=== PATIENT | male | born 1960 | race Caucasian/White ===

== ENCOUNTER 2016-11-19 01:16 | Emergency (ER) | payer MEDICARE ==
[2016-11-19] MEDS ORDERED: Ondansetron HCl/PF 4 MG/2 ML Vial ONE (02:18)
[2016-11-19 02:27] LABS: #Basophils 0.1 thou/uL (0.0-0.2); #Eosinphils 0.1 thou/uL (0.0-0.7); #Lymphocytes 2.8 thou/uL (1.20-3.40); #Monocytes 0.9 thou/uL (0.11-0.59); #Neutrophils 9.5 thou/uL (1.40-6.50); %Basophils 0.5 % (0.0-1.0); %Eosinophils 0.7 % (0.0-10.0); %Lymphocytes 20.7 % (21.0-51.0); %Monocytes 7.1 % (0.0-10.0); Hematocrit 47.2 % (42.0-52.0); Mean Platelet Volume 7.8 fL (7.4-10.4); Red Blood Cell (RBC) Count 5.37 mill/uL (4.70-6.10); White Blood Cell (WBC) Count 13.3 thou/uL (4.8-10.8)
[2016-11-19 02:32] LABS: Bilirubin Negative (Negative); Blood, Urine Negative (Negative); Glucose, Urine (Dipstick) Negative (Negative); Ketone, Urine Negative (Negative); Nitrite Negative (Negative); Protein, Urine (Dipstick) Negative (Neg-Trace); Urobilinogen 0.2 mg/dL (0.2-1.0)
[2016-11-19 02:46] LABS: Anion Gap 12 mmol/L (10-20); BUN (Urea Nitrogen) 6 mg/dL (8.4-25.7); Calc. Creatinine Clearance 0 mL/min (70-130); Calcium 8.7 mg/dL (7.8-10.44); Carbon Dioxide 25 mmol/L (22-29); Chloride 95 mmol/L (98-107); Estimated GFR-MDRD Greater than 90
[2016-11-19] MEDS ORDERED: Potassium Chloride 20 MEQ TAB ONE (03:03)
== END 2016-11-19 03:20 | disposition home or self-care (01) ==
LOC: ERS 01:16
DX: E87.6 Hypokalemia (principal); F17.210 Nicotine dependence, cigarettes, uncomplicated; G47.30 Sleep apnea, unspecified; I10 Essential (primary) hypertension; E78.5 Hyperlipidemia, unspecified; E66.9 Obesity, unspecified; E11.42 Type 2 diabetes mellitus with diabetic polyneuropathy; Z79.82 Long term (current) use of aspirin; Z79.4 Long term (current) use of insulin; Z79.899 Other long term (current) drug therapy; Z86.19 Personal history of other infectious and parasitic diseases
CPT/HCPCS: 36415; 36416; 80048; 81003; 85025; 96361; 96374; J2405

== ENCOUNTER 2016-12-21 16:42 | Emergency (ER) | payer MEDICARE ==
[2016-12-21 17:46] LABS: Bilirubin Negative (Negative); Blood, Urine Negative (Negative); Glucose, Urine (Dipstick) Negative (Negative); Ketone, Urine Negative (Negative); Nitrite Negative (Negative); Protein, Urine (Dipstick) Negative (Neg-Trace); Urobilinogen 0.2 mg/dL (0.2-1.0)
[2016-12-21 17:49] LABS: #Basophils 0.1 thou/uL (0.0-0.2); #Eosinphils 0.1 thou/uL (0.0-0.7); #Lymphocytes 3.1 thou/uL (1.20-3.40); #Monocytes 0.8 thou/uL (0.11-0.59); #Neutrophils 9.1 thou/uL (1.40-6.50); %Basophils 0.6 % (0.0-1.0); %Eosinophils 1.1 % (0.0-10.0); %Lymphocytes 23.2 % (21.0-51.0); Hematocrit 49.9 % (42.0-52.0); Mean Platelet Volume 7.1 fL (7.4-10.4); Red Blood Cell (RBC) Count 5.76 mill/uL (4.70-6.10); White Blood Cell (WBC) Count 13.2 thou/uL (4.8-10.8)
[2016-12-21 18:04] LABS: ALT (SGPT) 16 U/L (8-55); AST (SGOT) 14 U/L (5-34); Alkaline Phosphatase 109 U/L (40-150); Anion Gap 16 mmol/L (10-20); BUN (Urea Nitrogen) 9 mg/dL (8.4-25.7); Bilirubin, Total 0.6 mg/dL (0.2-1.2); Calc. Creatinine Clearance 0 mL/min (70-130); Calcium 9.2 mg/dL (7.8-10.44); Carbon Dioxide 23 mmol/L (22-29); Chloride 92 mmol/L (98-107); Estimated GFR-MDRD Greater than 90; Globulin 2.9 g/dL (2.4-3.5); Protein, Total 6.9 g/dL (6.0-8.3)
--- NOTE | 2017-01-25 15:24 | EKG ---
Test Reason : Blood Pressure : / mmHG Vent. Rate : 073 BPM Atrial Rate : 073 BPM P-R Int : 150 ms QRS Dur : 092 ms QT Int : 398 ms P-R-T Axes : 051 015 042 degrees QTc Int : 438 ms Normal sinus rhythm Normal ECG Confirmed by VICTOR M BOONE D.O. ([id number]), editorial manager ISIDORO ROSE ([id number]) on 01/25/2017 3:24:13 PM Referred By: Confirmed By:VICTOR M BOONE D.O.
== END 2016-12-21 18:41 | disposition home or self-care (01) ==
LOC: ERS 16:42
DX: E87.79 Other fluid overload (principal); E87.1 Hypo-osmolality and hyponatremia; J44.9 Chronic obstructive pulmonary disease, unspecified; G47.30 Sleep apnea, unspecified; E11.40 Type 2 diabetes mellitus with diabetic neuropathy, unspecified; E03.9 Hypothyroidism, unspecified; E78.5 Hyperlipidemia, unspecified; E66.9 Obesity, unspecified; F17.210 Nicotine dependence, cigarettes, uncomplicated; Z79.4 Long term (current) use of insulin; Z79.82 Long term (current) use of aspirin; Z79.899 Other long term (current) drug therapy
CPT/HCPCS: 36415; 36416; 80053; 81003; 83930; 85025; 93005

== ENCOUNTER 2017-03-07 00:23 | Emergency (ER) | payer MEDICARE ==
[2017-03-07 02:45] LABS: #Basophils 0.1 thou/uL (0.0-0.2); #Eosinphils 0.1 thou/uL (0.0-0.7); #Monocytes 0.7 thou/uL (0.11-0.59); %Basophils 0.6 % (0.0-1.0); %Lymphocytes 25.2 % (21.0-51.0); %Monocytes 6.2 % (0.0-10.0); %Neutrophils 67.1 % (42.0-75.0); Mean Corpuscular HGB CONC 34.2 g/dL (32.0-36.0); Mean Corpuscular Hemoglobin 29.9 pg (27.0-31.0); Mean Corpuscular Volume 87.5 fl (80.0-94.0); Mean Platelet Volume 8.5 fL (7.4-10.4); Platelet Count 151 thou/uL (130-400); RBC Distribution Width 12.1 % (11.5-14.5); White Blood Cell (WBC) Count 11.9 thou/uL (4.8-10.8)
[2017-03-07 03:08] LABS: ALT (SGPT) 18 U/L (8-55); AST (SGOT) 13 U/L (5-34); Albumin 4.2 g/dL (3.5-5.0); Alkaline Phosphatase 116 U/L (40-150); Anion Gap 12 mmol/L (10-20); BUN (Urea Nitrogen) 11 mg/dL (8.4-25.7); Calc. Creatinine Clearance 0 mL/min (70-130); Calcium 9.3 mg/dL (7.8-10.44); Carbon Dioxide 27 mmol/L (22-29); Chloride 98 mmol/L (98-107); Estimated GFR-MDRD Greater than 90; Globulin 2.6 g/dL (2.4-3.5); Glucose 451 mg/dL (70-105); Phosphorus 4.1 mg/dL (2.3-4.7); Potassium 4.4 mmol/L (3.5-5.1); Protein, Total 6.8 g/dL (6.0-8.3); Sodium 133 mmol/L (136-145)
[2017-03-07] MEDS ORDERED: Insulin Regular 300 UNITS/3 ML VIAL ONE (03:44)
== END 2017-03-07 04:12 | disposition home or self-care (01) ==
LOC: ERS 00:23
DX: E11.65 Type 2 diabetes mellitus with hyperglycemia (principal); J44.9 Chronic obstructive pulmonary disease, unspecified; G47.30 Sleep apnea, unspecified; E03.9 Hypothyroidism, unspecified; E78.5 Hyperlipidemia, unspecified; I10 Essential (primary) hypertension; E66.9 Obesity, unspecified; F25.9 Schizoaffective disorder, unspecified; F17.210 Nicotine dependence, cigarettes, uncomplicated; Z79.899 Other long term (current) drug therapy; Z79.82 Long term (current) use of aspirin; Z79.4 Long term (current) use of insulin
CPT/HCPCS: 36415; 36416; 80053; 82010; 83735; 84100; 85025; 96374; J1815

== ENCOUNTER 2017-03-10 21:26 | Observation (INO) | payer MEDICARE ==
[2017-03-10 22:29] LABS: #Eosinphils 0.1 thou/uL (0.0-0.7); #Monocytes 0.8 thou/uL (0.11-0.59); #Neutrophils 8.3 thou/uL (1.40-6.50); %Basophils 0.3 % (0.0-1.0); %Eosinophils 0.6 % (0.0-10.0); %Lymphocytes 24.9 % (21.0-51.0); %Monocytes 6.3 % (0.0-10.0); %Neutrophils 67.9 % (42.0-75.0); Hemoglobin 15.8 g/dL (14.0-18.0); Mean Corpuscular HGB CONC 35.2 g/dL (32.0-36.0); Mean Corpuscular Hemoglobin 30.3 pg (27.0-31.0); Mean Corpuscular Volume 86.1 fl (80.0-94.0); Mean Platelet Volume 7.9 fL (7.4-10.4); Platelet Count 147 thou/uL (130-400); RBC Distribution Width 11.7 % (11.5-14.5); Red Blood Cell (RBC) Count 5.21 mill/uL (4.70-6.10); White Blood Cell (WBC) Count 12.2 thou/uL (4.8-10.8)
[2017-03-10 22:52] LABS: ALT (SGPT) 13 U/L (8-55); AST (SGOT) 13 U/L (5-34); Albumin 3.7 g/dL (3.5-5.0); Alkaline Phosphatase 81 U/L (40-150); Anion Gap 13 mmol/L (10-20); BUN (Urea Nitrogen) 8 mg/dL (8.4-25.7); Bilirubin, Total 1.1 mg/dL (0.2-1.2); CK (CPK) 136 U/L (30-200); Calc. Creatinine Clearance 0 mL/min (70-130); Calcium 8.6 mg/dL (7.8-10.44); Carbon Dioxide 24 mmol/L (22-29); Chloride 86 mmol/L (98-107); Estimated GFR-MDRD Greater than 90; Globulin 2.1 g/dL (2.4-3.5); Glucose 208 mg/dL (70-105); Potassium 3.6 mmol/L (3.5-5.1); Protein, Total 5.8 g/dL (6.0-8.3)
[2017-03-10 22:53] LABS: CKMB 2.9 ng/mL (0-6.6); Troponin I Less than 0.010 ng/mL (< 0.028)
[2017-03-10 22:55] LABS: Sodium 119 mmol/L (136-145)
--- NOTE | 2017-03-10 23:39 | RAD ---
PORTABLE CHEST: Date: 03-10-17 Provided Clinical History: Cough. FINDINGS: Comparison is made with 07-14-16. Cardiac and mediastinal silhouette is unchanged in appearance. Bibasilar linear opacities are again s een suggesting subsegmental atelectasis or scar. No lobar consolidation, pleural fluid, or pneumothor ax apparent. IMPRESSION: No evidence for an acute cardiopulmonary prcess. POS: [facility]
[2017-03-11 02:13] VITALS: BMI 43.8
[2017-03-11] MEDS ORDERED: Ondansetron ODT 4 MG TAB PO PRN (03:45)
[2017-03-11] MEDS ORDERED: Dextrose 50% Abboject 50 ML SYRINGE SLOW IVP PRN (03:45)
[2017-03-11] MEDS ORDERED: Enoxaparin Sodium 40 MG/0.4 ML SYRINGE SC SCH (03:45)
[2017-03-11] MEDS ORDERED: Dextrose 5% in Water 1,000 ML IV PRN (03:45)
[2017-03-11] MEDS ORDERED: PROVENTIL INHALER 6.7 G (200 INHALATIONS) INH PRN (03:45)
[2017-03-11] MEDS: traMADol HCl 50 MG TAB PO PRN ×2 (05:12→15:38)
[2017-03-11] MEDS: HumaLOG 300 UNITS/3 ML VIAL SC PRN ×2 (05:30→17:18)
[2017-03-11] MEDS ORDERED: Levothyroxine Sodium 88 MCG TAB PO SCH (06:00)
[2017-03-11 06:15] LABS: #Eosinphils 0.1 thou/uL (0.0-0.7); #Lymphocytes 1.8 thou/uL (1.20-3.40); #Monocytes 0.7 thou/uL (0.11-0.59); #Neutrophils 8.5 thou/uL (1.40-6.50); %Basophils 0.2 % (0.0-1.0); %Eosinophils 0.9 % (0.0-10.0); %Lymphocytes 16.1 % (21.0-51.0); %Monocytes 6.6 % (0.0-10.0); %Neutrophils 76.2 % (42.0-75.0); Hemoglobin 17.2 g/dL (14.0-18.0); Mean Corpuscular HGB CONC 33.5 g/dL (32.0-36.0); Mean Corpuscular Hemoglobin 29.1 pg (27.0-31.0); Mean Corpuscular Volume 86.8 fl (80.0-94.0); Mean Platelet Volume 8.1 fL (7.4-10.4); Platelet Count 162 thou/uL (130-400); White Blood Cell (WBC) Count 11.2 thou/uL (4.8-10.8)
--- NOTE | 2017-03-11 06:20 | HP ---
DATE OF ADMISSION: 03/10/2017 TIME OF SERVICE: 0245. PRIMARY CARE PHYSICIAN: Dr. Wyatt at the [facility] in [facility]. CHIEF COMPLAINT: Flu symptoms. HISTORY OF PRESENT ILLNESS: Mr. Curry is a pleasant 56-year-old gentleman with history of hyperten avelina, COPD, chronic hepatitis C, GERD, sleep apnea, peripheral neuropathy, diabetes mellitus 2, hyper lipidemia, obesity, anxiety/depression, and schizoaffective disorder with known psychogenic polydipsi a and previous episodes of hyponatremia. The patient was seen in the ER a couple of days ago where his sodium was 133. He was there for respi ratory symptoms and discharged home. The patient returns today for flu-like symptoms again. He complains of a cough, congestion, and just overall body aches. Labs were largely normal except for a sodium of 119. So he has dropped from 13 3 to 119 in 48 hours. The patient admits to drinking at least 12 to 15 twelve ounce bottles of water a day plus 12-5 twenty ounce sodas and coffee and ice tea and whatever else he can get a hold of. He subsequently I believ e has literally drank himself down to a sodium of 119. The patient has had low sodiums in the past, lowest in the most recent history is down to 123 back in November. No fevers or chills, no chest pain, no shortness of breath. No nausea or vomiting. PAST MEDICAL HISTORY: 1. Hypertension. 2. Chronic obstructive pulmonary disease. 3. Chronic hepatitis C. 4. Gastroesophageal reflux disease. 5. Obstructive sleep apnea. 6. Peripheral neuropathy. 7. Diabetes mellitus type 2. 8. Hyperlipidemia. 9. Obesity. 10. Hypothyroidism. 11. Anxiety. 12. Depression with schizoaffective disorder. PAST SURGICAL HISTORY: 1. Back surgery remotely many years ago. 2. Double surgery. 3. Bilateral carpal tunnel release. 4. Hernia repair. MEDICATIONS: 1. Aspirin 81 mg daily. 2. Tylenol 500 mg p.o. at bedtime. 3. Cogentin 0.5 mg daily. 4. BuSpar 10 mg p.o. t.i.d. 5. Levothyroxine 88 mcg daily. 6. Metformin 1000 mg p.o. b.i.d. 7. Zoloft 50 mg p.o. b.i.d. 8. Lisinopril 20 mg p.o. daily. 9. Levemir 10 units subcu daily. 10. Robaxin 500 mg p.o. b.i.d. 11. Zocor 20 mg p.o. at bedtime. 12. Tramadol 50 mg p.o. q.4 hours p.r.n. 13. Flexeril 10 mg p.o. q.8h. p.r.n. 14. Albuterol MDI 2 puffs q.6 hours p.r.n. 15. Humalog sliding scale. ALLERGIES: NKDA. FAMILY HISTORY: Negative for clotting or bleeding disorder. No autoimmune dysfunction. SOCIAL HISTORY: Negative for habits x3. REVIEW OF SYSTEMS: A 10-point review of systems was performed, negative for other systems except as stated per HPI. PHYSICAL EXAMINATION: VITAL SIGNS: Temperature 98.6, pulse 67, blood pressure 114/60, respiratory 20, sat 94% on room air. GENERAL: He is awake. He is alert. He is oriented x3. He is an obese white male, appears in no ac betsy distress. HEENT: Normocephalic, atraumatic. Pupils equal and reactive bilaterally, mucous are moist. There a re no visible lesions or thrush. NECK: Supple with no lymphadenopathy, JVD or thyromegaly. Normal carotid upstrokes. I do not appre ciate bruits. LUNGS: Clear. No wheezes, no rales, no rhonchi. Good air movement. Symmetrical chest excursion. CARDIOVASCULAR: He is regular with a normal rate. Normal S1, S2. He has a faint 2/6 systolic eject ion murmur at the right upper sternal border. ABDOMEN: Obese, is nontender, nondistended. No mass or organomegaly. No shifting dullness, no flui d wave. EXTREMITIES: No cyanosis, no clubbing. He has got 1+ edema in the bilateral lower extremities from the mid tibia level down. SKIN: Warm, moist and well perfused. He had no rashes, no lesions. MUSCULOSKELETAL: Normal to inspection without any inflammation or palpable effusions. NEUROLOGIC: Cranial nerves II-XII are grossly intact. He has normal speech, 5/5 strength in all 4 e xtremities and no focal deficits. LABORATORY DATA: Sodium 119, potassium 3.6, chloride 86, bicarbonate 24, BUN 8, creatinine 0.66 and glucose of 208, calcium 8.6. Liver functions are normal except for a total protein of 5.8, albumin o f 2.1. CBC showed a white count of 12.2, hemoglobin 15.8, hematocrit 44.9 and platelet count of 517, 000. BNP is 95.5. CK-MB normal at 2.9, troponin I is undetectable less than 0.010. Chest x-ray teena wed no acute cardiopulmonary disease. ASSESSMENT AND PLAN: 1. Hyponatremia with decreased serum osmolality secondary to psychogenic polydipsia. We will fluid restrict him. He is already put out 3-4 liters of urine since being here and is already negative 2-3 liters overall. 2. Psychogenic polydipsia as above. 3. Hypertension. Continue home medications. 4. Chronic obstructive pulmonary disease. We will continue his home a home MDIs. 5. History of chronic hepatitis C. He denies any prior treatment. 6. Gastroesophageal reflux disease. The patient will be on Pepcid b.i.d. for prophylaxis. 7. Obstructive sleep apnea. 8. Peripheral neuropathy. 9. Diabetes mellitus type 2. Continue sliding scale insulin for elevated sugars. We will check q.i .d. a.c. and at bedtime Accu-Cheks. 10. Hyperlipidemia on Zocor. We will continue treatment here. 11. Obesity. 12. Hypothyroidism on levothyroxine, which will continue. 13. Schizoaffective disorder/anxiety/depression on Cogentin, BuSpar, Zoloft, and Robaxin and Haldol .
[2017-03-11 06:47] LABS: Anion Gap 15 mmol/L (10-20); BUN (Urea Nitrogen) 7 mg/dL (8.4-25.7); Calc. Creatinine Clearance 180 mL/min (70-130); Calcium 9.2 mg/dL (7.8-10.44); Carbon Dioxide 23 mmol/L (22-29); Chloride 96 mmol/L (98-107); Estimated GFR-MDRD Greater than 90; Glucose 268 mg/dL (70-105); Magnesium 2.1 mg/dL (1.6-2.6); Potassium 4.4 mmol/L (3.5-5.1); Sodium 130 mmol/L (136-145)
[2017-03-11] MEDS ORDERED: metFORMIN XR 500 MG TAB PO SCH (08:00)
[2017-03-11] MEDS: busPIRone HCl 10 MG TAB PO SCH ×2 (08:49→15:38)
[2017-03-11] MEDS: Methocarbamol 500 MG TAB PO SCH ×2 (08:49→15:38)
[2017-03-11] MEDS ORDERED: Famotidine 20 MG TAB PO SCH (09:00)
[2017-03-11] MEDS ORDERED: Lisinopril 20 MG TAB PO SCH (09:00)
[2017-03-11] MEDS ORDERED: Insulin Detemir 100 UNITS/ML 40 UNITS in Pre-Filled Syringe 1 EACH SC SCH (09:00)
[2017-03-11 15:40] VITALS: BP 115/66; TEMP 97.9
[2017-03-11] MEDS ORDERED: Haloperidol 5 MG TAB PO SCH (21:00)
[2017-03-11] MEDS ORDERED: Atorvastatin Calcium 10 MG TAB PO SCH (21:00)
[2017-03-11] MEDS ORDERED: Benztropine 1 MG TAB PO SCH (21:00)
--- NOTE | 2017-03-11 23:53 | DIS ---
DATE OF ADMISSION: 03/10/2017 DATE OF DISCHARGE: 03/11/2017 DISCHARGE DIAGNOSES: 1. Psychogenic polydipsia, improved. 2. Hypochloremia. 3. Diabetes mellitus type 2, insulin requiring. 4. Schizoaffective disorder. 5. Hypothyroidism. 6. Chronic obstructive pulmonary disease, stable. 7. Chronic hepatitis C, stable. 8. Obstructive sleep apnea with nocturnal CPAP. CONSULTATIONS: None. PERTINENT LABORATORY AND X-RAY FINDINGS: Sodium ranged between 119 to 130, chloride ranged between 8 6 to 96, creatinine ranged between 0.66 to 0.74, calcium 9.2, magnesium 2.1. LFTs are within normal limits. Troponin I negative x1. Albumin 3.7. CBC showed a white blood cell count ranging between 1 1.2 to 12.2. Group A Streptococcus throat screen was negative on 03/11/2017. Influenza A and B antig en dated 03/10/2017 was negative. Portable chest x-ray dated 03/10/2017 showed no acute cardiopulmon lester process. HOSPITAL COURSE: The patient was placed in observation status after initially presenting with flu-li ke symptoms with an associated metabolic survey showing a sodium level of 119. The patient with long standing history of hyponatremia likely psychogenic polydipsia. The patient was placed on fluid rest rictions and auto-diuresed approximately 4 to 5 liters without specific intervention. The patient's sodium level improved from 119 to 130 by the time of discharge. The patient symptomatically improved with fluid restriction and was cautioned and given education regarding excessive fluid intake and it s risk to overall health. Overall, the patient remained clinically stable during the hospital course with telemetry monitoring showing a sinus mechanism without acute arrhythmia or dysrhythmia. Overal l, the patient is clinically stable and ready for discharge on 03/11/2017. DISCHARGE MEDICATIONS: 1. ProAir RespiClick 90 mcg inhaled q.4 hours p.r.n. 2. Enteric coated aspirin 81 mg 1 tablet p.o. daily. 3. Cogentin 0.5 mg p.o. at bedtime. 4. BuSpar 10 mg p.o. t.i.d. 5. Haldol 5 mg p.o. at bedtime. 6. Levemir 40 units subcutaneously b.i.d. 7. Lactulose 2 tablespoons p.o. b.i.d. 8. Levothyroxine 88 mcg p.o. daily. 9. Lisinopril 20 mg 1 tablet p.o. daily. 10. Metformin ER 2000 mg p.o. daily. 11. Methocarbamol 500 mg p.o. t.i.d. 12. Zoloft 100 mg p.o. b.i.d. 13. Zocor 20 mg p.o. at bedtime. 14. Tramadol 50 mg p.o. q.i.d. p.r.n. FOLLOWUP: The patient will follow up with primary care provider, Dr. Yazan Damon, at the [facility] in [place], [place]. CONDITION ON DISCHARGE: Stable. ACTIVITY: Ad vivienne. DIET: Heart healthy and ADA. CODE STATUS: FULL. DISPOSITION: Home on 03/11/2017.
--- NOTE | 2017-03-12 00:07 | CON ---
DATE OF CONSULTATION: 03/11/2017 CONSULTING PHYSICIAN: Dr. Gandhi. REASON FOR CONSULTATION: Hyponatremia. REASON FOR ADMISSION: Weakness. HISTORY OF PRESENT ILLNESS: A 56-year-old male with history of hypertension, COPD, hepatitis C, came to the hospital with flu-like symptoms, found to have hyponatremia at 119. He usually has a sodium around 130, 133 now, no fever or chills. The patient admits to drinking a lot of water. We will sta rt him on fluid restriction this morning, sodium was 130. No fever or chills. No nausea or vomiting. PAST MEDICAL HISTORY: Positive for hypertension, COPD, hepatitis C, gout, neuropathy, type 2 diabete s, hyperlipidemia, obesity, hypothyroidism, anxiety, and depression. PAST SURGICAL HISTORY: Back surgery and bilateral carpal tunnel surgery, hernia repair. HOME MEDICATIONS: Aspirin, Tylenol, BuSpar, levothyroxine, metoprolol, Zoloft, lisinopril, Robaxin, Zocor, tramadol, Flexeril, and albuterol inhaler. ALLERGIES: NKDA. FAMILY HISTORY: No history of any kidney disease. SOCIAL HISTORY: No smoking, alcohol or illicit drug abuse. REVIEW OF SYSTEMS: The following complete review of systems was negative, unless otherwise mentioned in the HPI or below: Constitutional: Weight loss or gain, ability to conduct usual activities. Skin: Rash, itching. Eyes: Double vision, pain. ENT/Mouth: Nose bleeding, neck stiffness, pain, tenderness. Cardiovascular: Palpitations, dyspnea on exertion, orthopnea. Respiratory: Shortness of breath, wheezing, cough, hemoptysis, fever or night sweats. Gastrointestinal: Poor appetite, abdominal pain, heartburn, nausea, vomiting, constipation, or diarr hea. Genitourinary: Urgency, frequency, dysuria, nocturia. Musculoskeletal: Pain, swelling. Neurologic/Psychiatric: Anxiety, depression. Allergy/Immunologic: Skin rash, bleeding tendency. PHYSICAL EXAMINATION: GENERAL: This is a well-built white male in no apparent distress. VITAL SIGNS: Temperature 98.3, pulse 72, respiratory rate 20, and blood pressure 106/66. HEENT: Atraumatic, normocephalic. Oral mucosa is moist. NECK: Supple, no masses. CARDIOVASCULAR: S1, S2, rate and rhythm regular. RESPIRATORY: Clear. ABDOMEN: Soft. MUSCULOSKELETAL: 1+ edema. DERMATOLOGIC: No skin rash. NEUROLOGIC: Alert, awake. PSYCHIATRIC: Mood and affect normal. LABORATORY DATA: Sodium is 130, potassium is 4.4, BUN is 7, and creatinine is 0.7. ASSESSMENT AND PLAN: 1. Hyponatremia, most likely from polydipsia. Sodium is better now , doubt the 119 level, but we will follow. Continue on fluid restriction. 2. Hypochloremia. 3. Edema, controlled. 4. Hypertension. 5. Obesity. 6. Hypoalbuminemia. 7. Continue on fluid restriction and monitor sodium.
== END 2017-03-11 18:34 | disposition home or self-care (01) ==
LOC: ERS 21:26 → 2SW 23:15
PROVIDERS: ADMIT Internal Medicine Infectious Disease; ATTEND Internal Medicine Infectious Disease
DX: R63.1 Polydipsia (principal); E87.8 Other disorders of electrolyte and fluid balance, not elsewhere classified; F25.9 Schizoaffective disorder, unspecified; E03.9 Hypothyroidism, unspecified; E11.40 Type 2 diabetes mellitus with diabetic neuropathy, unspecified; J44.9 Chronic obstructive pulmonary disease, unspecified; M10.9 Gout, unspecified; B18.2 Chronic viral hepatitis C; G47.33 Obstructive sleep apnea (adult) (pediatric); Z79.82 Long term (current) use of aspirin; Z79.899 Other long term (current) drug therapy; Z98.890 Other specified postprocedural states; Z99.89 Dependence on other enabling machines and devices
CPT/HCPCS: 71045; 80048; 80053; 82550; 82553; 82962; 83735; 83880; 84484; 85025 ×2; 87804 ×2; 93005; 96372; 97139; 99285; G0378; 36415; 36416; J1650; J1815

== ENCOUNTER 2017-04-28 21:13 | Emergency (ER) | payer MEDICARE ==
[2017-04-28 22:02] LABS: #Basophils 0.1 thou/uL (0.0-0.2); #Eosinphils 0.1 thou/uL (0.0-0.7); #Lymphocytes 2.6 thou/uL (1.20-3.40); #Monocytes 0.9 thou/uL (0.11-0.59); #Neutrophils 8.8 thou/uL (1.40-6.50); %Basophils 0.6 % (0.0-1.0); %Eosinophils 0.9 % (0.0-10.0); %Lymphocytes 20.8 % (21.0-51.0); %Monocytes 7.1 % (0.0-10.0); %Neutrophils 70.7 % (42.0-75.0); Mean Corpuscular HGB CONC 35.3 g/dL (32.0-36.0); Mean Corpuscular Hemoglobin 30.7 pg (27.0-31.0); Mean Corpuscular Volume 86.8 fl (80.0-94.0); Mean Platelet Volume 7.7 fL (7.4-10.4); Platelet Count 169 thou/uL (130-400); RBC Distribution Width 12.3 % (11.5-14.5); Red Blood Cell (RBC) Count 5.86 mill/uL (4.70-6.10); White Blood Cell (WBC) Count 12.5 thou/uL (4.8-10.8)
[2017-04-28 22:20] LABS: ALT (SGPT) 16 U/L (8-55); AST (SGOT) 14 U/L (5-34); Albumin 4.4 g/dL (3.5-5.0); Alkaline Phosphatase 95 U/L (40-150); Anion Gap 15 mmol/L (10-20); BUN (Urea Nitrogen) 10 mg/dL (8.4-25.7); Bilirubin, Total 1.1 mg/dL (0.2-1.2); Calc. Creatinine Clearance 0 mL/min (70-130); Calcium 9.5 mg/dL (7.8-10.44); Carbon Dioxide 26 mmol/L (22-29); Chloride 95 mmol/L (98-107); Estimated GFR-MDRD 87; Glucose 357 mg/dL (70-105); Protein, Total 7.4 g/dL (6.0-8.3); Sodium 132 mmol/L (136-145)
[2017-04-28] MEDS ORDERED: methylPREDNISolone Sod Succ/PF 125 MG/2 ML VIAL ONE (22:27)
[2017-04-28] MEDS ORDERED: Water For Inject, Bacteriostat 30 ML ONE (22:27)
--- NOTE | 2017-04-28 22:52 | RAD ---
PORTABLE CHEST: History: Cough. FINDINGS: The lungs appear clear of infiltrate. Heart and mediastinum unremarkable. IMPRESSION: No acute abnormality. POS: [facility]
--- NOTE | 2017-05-03 11:45 | EKG ---
Test Reason : CHEST TIGHNESS Blood Pressure : / mmHG Vent. Rate : 077 BPM Atrial Rate : 077 BPM P-R Int : 144 ms QRS Dur : 098 ms QT Int : 396 ms P-R-T Axes : 056 -09 048 degrees QTc Int : 448 ms Normal sinus rhythm Normal ECG Confirmed by OVIDIO MARROQUIN, GABBY Haile ([id number]), multimedia editor ISIDORO ROSE ([id number]) on 05/03/2017 11:44:25 AM Referred By: LILLI Confirmed By:GABBY NOLAN MD
== END 2017-04-29 00:04 | disposition home or self-care (01) ==
LOC: ERS 21:13
DX: J44.1 Chronic obstructive pulmonary disease with (acute) exacerbation (principal); E11.40 Type 2 diabetes mellitus with diabetic neuropathy, unspecified; E03.9 Hypothyroidism, unspecified; G47.30 Sleep apnea, unspecified; I10 Essential (primary) hypertension; F25.9 Schizoaffective disorder, unspecified; F17.210 Nicotine dependence, cigarettes, uncomplicated; Z79.4 Long term (current) use of insulin; Z79.891 Long term (current) use of opiate analgesic; Z79.899 Other long term (current) drug therapy
CPT/HCPCS: 71045; 80053; 85025; 93005; 94640; 94760; 96374; J2930; J7620

== ENCOUNTER 2017-05-16 18:21 | Observation (INO) | payer MEDICARE ==
[2017-05-16 18:45] LABS: #Basophils 0.1 thou/uL (0.0-0.2); #Eosinphils 0.1 thou/uL (0.0-0.7); #Lymphocytes 2.6 thou/uL (1.20-3.40); #Monocytes 0.9 thou/uL (0.11-0.59); %Basophils 0.7 % (0.0-1.0); %Lymphocytes 26.9 % (21.0-51.0); %Monocytes 9.1 % (0.0-10.0); %Neutrophils 62.3 % (42.0-75.0); Hemoglobin 17.1 g/dL (14.0-18.0); Mean Corpuscular HGB CONC 35.3 g/dL (32.0-36.0); Mean Corpuscular Hemoglobin 30.4 pg (27.0-31.0); Mean Platelet Volume 7.5 fL (7.4-10.4); Platelet Count 195 thou/uL (130-400); RBC Distribution Width 11.8 % (11.5-14.5); Red Blood Cell (RBC) Count 5.63 mill/uL (4.70-6.10); White Blood Cell (WBC) Count 9.7 thou/uL (4.8-10.8)
[2017-05-16 18:57] LABS: INR-International Normal Ratio 1.2; PTT 27.5 SEC (22.9-36.1); Prothrombin Time 15.2 SEC (12.0-14.7)
[2017-05-16 18:59] LABS: D-Dimer Test Less than 0.27 *mcg/mL (0.27-0.43)
[2017-05-16 19:01] LABS: Magnesium 1.7 mg/dL (1.6-2.6)
[2017-05-16 19:06] LABS: ALT (SGPT) 16 U/L (8-55); AST (SGOT) 12 U/L (5-34); Albumin 4.1 g/dL (3.5-5.0); Alkaline Phosphatase 133 U/L (40-150); Anion Gap 14 mmol/L (10-20); BUN (Urea Nitrogen) 11 mg/dL (8.4-25.7); Bilirubin, Total 0.7 mg/dL (0.2-1.2); CK (CPK) 69 U/L (30-200); Calc. Creatinine Clearance 0 mL/min (70-130); Calcium 9.4 mg/dL (7.8-10.44); Carbon Dioxide 29 mmol/L (22-29); Chloride 94 mmol/L (98-107); Estimated GFR-MDRD 84; Globulin 2.9 g/dL (2.4-3.5); Glucose 404 mg/dL (70-105); Potassium 4.1 mmol/L (3.5-5.1); Sodium 133 mmol/L (136-145)
[2017-05-16 19:07] LABS: CKMB 1.5 ng/mL (0-6.6); Troponin I Less than 0.010 ng/mL (< 0.028)
--- NOTE | 2017-05-16 19:29 | RAD ---
AP VIEW OF THE CHEST: 05/16/17 INDICATION: Chest pain and productive cough. IMPRESSION: No acute cardiopulmonary abnormality. There is stable cardiomegaly when compared to the prior dated . POS: [facility]
[2017-05-16] MEDS ORDERED: Nitroglycerin 2% Ointment 1 INCH/1 GM Packet ONE (20:10)
[2017-05-16] MEDS ORDERED: HYDROcodone/Acetaminophen 5/325 mg Tablet PO PRN ×2 (21:55)
[2017-05-16] MEDS ORDERED: Ondansetron HCl/PF 4 MG/2 ML Vial IVP PRN (21:55)
[2017-05-16] MEDS ORDERED: Ondansetron ODT 4 MG TAB SL PRN (21:55)
[2017-05-16] MEDS ORDERED: Acetaminophen 325 MG TAB PO PRN (21:55)
[2017-05-16 22:04] LABS: Troponin I Less than 0.010 ng/mL (< 0.028)
[2017-05-16 22:22] VITALS: BMI 41.5
[2017-05-17 00:59] LABS: Troponin I Less than 0.010 ng/mL (< 0.028)
[2017-05-17] MEDS ORDERED: Chloraseptic Spray 180 ml Bottle PO PRN (01:34)
[2017-05-17] MEDS ORDERED: Ondansetron HCl/PF 4 MG/2 ML Vial IVP PRN (01:34)
[2017-05-17] MEDS ORDERED: hydrALAZINE 20 MG/ML VIAL SLOW IVP PRN (01:34)
[2017-05-17] MEDS ORDERED: Benzonatate 100 MG CAP PO PRN (01:34)
[2017-05-17] MEDS ORDERED: cloNIDine 0.1 MG TAB PO PRN (01:34)
[2017-05-17] MEDS ORDERED: Dextrose 50% Abboject 50 ML SYRINGE SLOW IVP PRN (01:34)
[2017-05-17] MEDS ORDERED: HumaLOG 300 UNITS/3 ML VIAL SC PRN (01:34)
[2017-05-17] MEDS ORDERED: predniSONE 20 MG TAB PO SCH ×2 (01:34→08:00)
[2017-05-17] MEDS ORDERED: Dextrose 5% in Water 1,000 ML IV PRN (01:34)
[2017-05-17] MEDS ORDERED: Ondansetron ODT 4 MG TAB PO PRN (01:34)
[2017-05-17] MEDS ORDERED: Acetaminophen 500 MG TAB PO PRN (01:34)
[2017-05-17] MEDS ORDERED: PROVENTIL INHALER 6.7 G (200 INHALATIONS) INH PRN (02:00)
[2017-05-17] MEDS ORDERED: guaiFENesin/DM ER PO SCH ×2 (02:00→21:00)
--- NOTE | 2017-05-17 02:54 | HP ---
DATE OF ADMISSION: 05/16/2017 PRIMARY CARE PHYSICIAN: Dr. Yazan Damon at [facility] in [place], [place]. CHIEF COMPLAINT: Cough. HISTORY OF PRESENT ILLNESS: This is a 56-year-old male who presents to [facility] complaining of persistent cough over the last week. After being diagnosed recently wi th bronchitis treated with Augmentin for approximately 1 week. Patient states he has had increased c ough with productivity receiving amoxicillin through his primary care provider. Patient states he zuniga s had persistent cough with associated chest discomfort due to the intensity of his coughing episodes . Patient states he last smoked 8-9 days prior to this evaluation, previously smoking up to 3 packs of cigarettes daily. Patient denied any specific fever, but states he has had some disrupted sleep d ue to the cough. Patient states when he takes a deep breath, it causes him to cough more. Patient d oes admit to using a home nebulizer as well as metered-dose inhaler. Patient states he uses nocturna l CPAP, but not chronic oxygen supplementation. Patient has tried [id number] remedies and coug h suppressants with minimal relief. In the emergency room, patient underwent general evaluation incl uding chest imaging showing no acute process. Patient also underwent EKG evaluation showing no acute process. Patient did receive topical nitroglycerin, as patient had complained of some chest discomf ort with cough. Patient underwent nuclear cardiac stress testing in 2014 with negative findings. PAST MEDICAL HISTORY: 1. Hypertension. 2. Chronic obstructive pulmonary disease. 3. Chronic hepatitis C. 4. Obstructive sleep apnea with nocturnal CPAP. 5. Gastroesophageal reflux disease. 6. Peripheral neuropathy. 7. Diabetes mellitus type 2, insulin requiring, labile. 8. Hyperlipidemia. 9. Psychogenic polydipsia with hyponatremia. 10. Morbid obesity. 11. Hypothyroidism. 12. Anxiety with depression. 13. Schizoaffective disorder. PAST SURGICAL HISTORY: 1. Status post back surgery. 2. Status post bilateral carpal tunnel release. 3. Status post hernia repair. CURRENT MEDICATIONS: 1. ProAir RespiClick 90 mcg p.o. q.4 hours p.r.n. 2. Aspirin 81 mg p.o. daily. 3. Cogentin 0.5 mg p.o. at bedtime. 4. BuSpar 10 mg p.o. t.i.d. 5. Gabapentin 300 mg p.o. b.i.d. 6. Haldol 5 mg p.o. at bedtime p.r.n. 7. Humalog 12 units subcutaneously with meals. 8. Levemir 40 units subcutaneously b.i.d. 9. Levothyroxine 88 mcg p.o. daily. 10. Lisinopril 20 mg 1 tab p.o. daily. 11. Metformin ER 2000 mg p.o. daily. 12. Methocarbamol 500 mg p.o. b.i.d. 13. Zoloft 100 mg p.o. b.i.d. 14. Zocor 20 mg p.o. at bedtime. 15. Tramadol 50 mg p.o. t.i.d. 16. Zantac 150 mg p.o. daily. ALLERGIES: No known drug allergies. FAMILY HISTORY: No inheritable diseases per patient report. SOCIAL HISTORY: Patient is , resides in [place], [place]. Disabled. [place] of the . P reviously smoking up to 2 to 3 packs per day. Last cigarette smoked 8-9 days prior to this evaluatio n. Currently, using smokeless tobacco. No alcohol or illicit drug use. REVIEW OF SYSTEMS: The following complete review of systems was otherwise negative, except as stated per HPI: Constitutional: Weight loss or gain, ability to conduct usual activities. Skin: Rash, i tching. Eyes: Double vision, pain. ENT/Mouth: Nose bleeding, neck stiffness, pain, tenderness. C ardiovascular: Palpitations, dyspnea on exertion, orthopnea. Respiratory: Shortness of breath, whe ezing, cough, hemoptysis, fever, or night sweats. Gastrointestinal: Poor appetite, abdominal pain, heartburn, nausea, vomiting, constipation, or diarrhea. Genitourinary: Urgency, frequency, dysuria, nocturia. Musculoskeletal: Pain, swelling. Neurologic/Psychiatric: Anxiety, depression. Allergy /Immunologic: Skin rash, bleeding tendency. PHYSICAL EXAMINATION: VITAL SIGNS: Currently, blood pressure 112/58, pulse 69, respiratory rate 18, temperature 97.6 degre es Fahrenheit, O2 saturation 97% on room air. GENERAL APPEARANCE: This is a 56-year-old male, alert and oriented x3, pleasant, conversan t, in no acute distress. HEENT: Pupils are equal, round, and reactive to light and accommodation. Extraocular muscles are in tact. No scleral icterus, no conjunctival injection. Nares patent. OP is clear. Face is flushed. NECK: Supple, no cervical adenopathy, no thyromegaly, no carotid bruits, no JVD appreciated. Cervic al spine with full active and passive range of motion. CHEST: Diminished breath sounds bilaterally. Occasional rhonchi. CARDIOVASCULAR: S1, S2 with distant heart sounds. ABDOMEN: Obese, soft, nontender, nondistended. Bowel sounds are positive in all four quadrants. Th ere is no hepatosplenomegaly, no abdominal bruits, no rebound or guarding appreciated. EXTREMITIES: Warm and dry with fair turgor. No clubbing, cyanosis, or asymmetric edema appreciated. Pulses palpable distally at the dorsalis pedis, posterior tibial, and popliteal arteries bilaterall y. Capillary refills less than 2 seconds. NEUROLOGIC: Cranial nerves II-XII are grossly intact. No focal or lateralizing signs appreciated. PERTINENT LABORATORY DATA AND X-RAY FINDINGS: Sodium 133, potassium 4.1, chloride 94, CO2 of 29, BUN of 11, creatinine 0.92, estimated GFR of 84, glucose 404, calcium 9.4, magnesium 1.7. LFTs within n ormal limits. Troponin I negative x2. BNP 10. Albumin 4.1, lipase 16. CBC showed a white blood ce ll count of 9.7, hemoglobin 17, hematocrit 48, platelet count 195 with normal differential. Portable chest x-ray dated 05/16/2017, showed no acute cardiopulmonary process. EKG dated 05/16/2017 by my i nterpretation shows sinus mechanism with heart rates in the 60s-70s. Normal R-wave progression noted in precordial leads. Normal axis. No acute ST-T wave changes appreciated. ASSESSMENT AND PLAN: 1. Dyspnea with cough. Patient will be observed on the telemetry unit. Appears patient has acute o n chronic bronchitis in the context of known tobacco abuse. We will continue general pulmonary suppo rtive measures with DuoNebs q.4 hours. We will continue oxygen to maintain O2 saturation greater than or equal to 90%. 2. Chronic obstructive pulmonary disease. No specific indication of an acute exacerbation. We will continue Levaquin 500 mg p.o. daily. Resume home ProAir RespiClick 90 mcg inhaled q.4 hours p.r.n. Continue DuoNebs q.4 hours. 3. Chest pain secondarily to #1. No evidence to suggest acute coronary syndrome. Chest wall pain b y clinical history and exam. Supportive measures. 4. Chronic hyponatremia. Stable currently. Continue to monitor trend in the hospital course. 5. Diabetes mellitus, type 2, insulin-requiring. Insulin sliding scale for reflexive coverage. Res ume home Levemir 40 units subcutaneously b.i.d. 6. Accu-Cheks a.c. and at bedtime. ADA diet. 7. Hypertension. Resume home antihypertensive regimen and monitor clinical response. 8. Tobacco abuse. We will offer smoking cessation resources prior to discharge. 9. Prophylaxis. Sequential compression devices while in bed. Pepcid 20 mg p.o. b.i.d. 10. Code status is FULL. Surrogate medical decision maker is patient's spouse.
[2017-05-17 05:03] LABS: Band 4 % (5-11); Hemoglobin 16.6 g/dL (14.0-18.0); Lymphocytes 17 % (21-51); MDiff Complete? YES; Mean Corpuscular HGB CONC 34.5 g/dL (32.0-36.0); Mean Corpuscular Hemoglobin 30.6 pg (27.0-31.0); Mean Corpuscular Volume 88.6 fl (80.0-94.0); Monocytes 9 % (0-10); Neutrophil 68 % (42-75); Platelet Count 181 thou/uL (130-400); RBC Distribution Width 11.8 % (11.5-14.5); Reactive Lymphocytes 2 % (0-10); Red Blood Cell (RBC) Count 5.42 mill/uL (4.70-6.10); White Blood Cell (WBC) Count 11.6 thou/uL (4.8-10.8)
[2017-05-17 05:14] LABS: Anion Gap 9 mmol/L (10-20); BUN (Urea Nitrogen) 10 mg/dL (8.4-25.7); Calc. Creatinine Clearance 163 mL/min (70-130); Carbon Dioxide 31 mmol/L (22-29); Chloride 96 mmol/L (98-107); Estimated GFR-MDRD Greater than 90; Glucose 375 mg/dL (70-105); Sodium 132 mmol/L (136-145)
[2017-05-17] MEDS: HumaLOG 300 UNITS/3 ML VIAL SC PRN ×3 (05:45→16:27)
[2017-05-17] MEDS ORDERED: Levothyroxine Sodium 88 MCG TAB PO SCH (06:00)
[2017-05-17] MEDS ORDERED: metFORMIN XR 500 MG TAB PO SCH (08:00)
[2017-05-17] MEDS ORDERED: Famotidine 20 MG TAB PO SCH (09:00)
[2017-05-17] MEDS ORDERED: Methocarbamol 500 MG TAB PO SCH (09:00)
[2017-05-17] MEDS ORDERED: Gabapentin 300 MG CAP PO SCH (09:00)
[2017-05-17] MEDS ORDERED: Aspirin 325 MG TAB PO SCH (09:00)
[2017-05-17] MEDS ORDERED: Insulin Detemir 100 UNITS/ML 40 UNITS in Pre-Filled Syringe 1 EACH SC SCH (09:00)
[2017-05-17] MEDS: traMADol HCl 50 MG TAB PO SCH ×2 (10:00→15:53)
[2017-05-17] MEDS: busPIRone HCl 10 MG TAB PO SCH ×2 (10:02→15:53)
[2017-05-17] MEDS ORDERED: HumaLOG 300 UNITS/3 ML VIAL SC SCH ×2 (11:30)
[2017-05-17] MEDS: HumaLOG 300 UNITS/3 ML VIAL SC SCH ×2 (12:20→16:27)
[2017-05-17 16:28] VITALS: BP 140/65; TEMP 97.9
[2017-05-17] MEDS ORDERED: Atorvastatin Calcium 10 MG TAB PO SCH (21:00)
[2017-05-17] MEDS ORDERED: Benztropine 1 MG TAB PO SCH (21:00)
[2017-05-17] MEDS ORDERED: Haloperidol 5 MG TAB PO SCH (21:00)
--- NOTE | 2017-05-18 16:37 | DIS ---
DATE OF ADMISSION: 05/16/2017 DATE OF DISCHARGE: 05/17/2017 DISCHARGE DIAGNOSES: 1. Acute bronchitis. 2. Chronic obstructive pulmonary disease without acute exacerbation. 3. Essential hypertension. 4. Chronic hepatitis C. 5. Obstructive sleep apnea, on CPAP. 6. Gastroesophageal reflux disease. 7. Diabetes mellitus type 2, insulin-dependent, poorly controlled. 8. Peripheral neuropathy secondary to diabetes. 9. Hyperlipidemia. 10. History of chronic hyponatremia secondary to psychogenic polydipsia. 11. Severe obesity. 12. Anxiety and depression. 13. Schizoaffective disorder. CONSULTATIONS: None. PROCEDURES: None. HISTORY AND PHYSICAL: Mr. Curry is a 56-year-old white male whom I know [facility] who presented in the emergency department the night of 05/16/2017 for evaluation of chest pain an d cough. The patient recently had pneumonia and was treated with antibiotics and was doing better. He developed pain that he described as a sharp sensation in the center of his chest that was worse wi th deep breath exertion and coughing. It radiated to his shoulders and back while he was coughing. He denies any nausea, vomiting or diaphoresis. No wheezing. He was recently diagnosed with bronchit is and treated with amoxicillin, but that did not help very much. He was presented to emergency depa rtment for evaluation. There, he was seen and examined by the emergency department staff. Initial set of cardiac biomarkers were negative, sugars were somewhat elevated, he was started on DuoNebs, started on oral levofloxaci n and oxygen to keep sats greater than 90%, which did not require. Continued on his regular home air , RespiClick as needed in between his neb treatments and serial cardiac biomarkers are ordered. HOSPITAL COURSE: The patient was seen and examined by Dr. Butler and placed in observation. Overnight , the patient did well. Serial cardiac biomarkers were negative. Chest pain improved with Mucinex a nd expectoration of sputum. Sugars were elevated on prednisone. He was continued on his home medica tion and was dosed with a sliding scale correction. He remained stable through the day and was stabl e for discharge with outpatient followup. DISCHARGE PHYSICAL EXAMINATION: The patient was seen and examined on the day of discharge. Discharge plan and disposition was discussed with the patient face to face at the bedside. DISCHARGE MEDICATIONS: 1. Levofloxacin 500 mg p.o. daily for 7 days. 2. Prednisone 40 mg p.o. daily for 5 days. 3. Mucinex DM ER 600/30 2 tabs p.o. b.i.d. 4. Tessalon Perles 200 mg p.o. q.6 h. p.r.n. cough, prescriptions were sent. 5. Albuterol ProAir RespiClick 2 puffs every 4 hours as needed. 6. Aspirin 81 mg daily. 7. Cogentin 0.5 mg p.o. at bedtime. 8. BuSpar 10 mg p.o. t.i.d. 9. Gabapentin 300 mg p.o. b.i.d. 10. Haldol 5 mg p.o. at bedtime. 11. Humalog 12 units subcu a.c. 12. Levemir 40 units subcutaneously b.i.d. 13. Levothyroxine 88 mcg daily. 14. Lisinopril 20 mg daily. 15. Metformin ER 2000 mg p.o. daily. 16. Methocarbamol 500 mg p.o. b.i.d. 17. Zoloft 100 mg p.o. b.i.d. 18. Zocor 20 mg p.o. at bedtime. 19. Zantac 150 mg p.o. daily. DISCHARGE CONDITION: Stable. DISPOSITION: Discharged back to home via private vehicle. FOLLOWUP APPOINTMENTS: Primary care physician who is the [facility] in a week. DISCHARGE DIET: Heart healthy diabetic diet recommended. ACTIVITY: Cardiopulmonary limits.
--- NOTE | 2017-05-24 20:24 | EKG ---
Test Reason : CP, WEAKNESS Blood Pressure : / mmHG Vent. Rate : 069 BPM Atrial Rate : 069 BPM P-R Int : 142 ms QRS Dur : 094 ms QT Int : 402 ms P-R-T Axes : 056 -08 031 degrees QTc Int : 430 ms Normal sinus rhythm Septal infarct , age undetermined Abnormal ECG Confirmed by CHRISTIANO MONTES ([id number]), rewrite editor ISIDORO ROSE ([id number]) on 05/24/2017 8:23:22 PM Referred By: Confirmed By:CHRISTIANO MONTES
== END 2017-05-17 17:49 | disposition home or self-care (01) ==
LOC: ERS 18:21 → 2SW 20:08
PROVIDERS: ADMIT Internal Medicine; ATTEND Internal Medicine
DX: J20.9 Acute bronchitis, unspecified (principal); J44.0 Chronic obstructive pulmonary disease with (acute) lower respiratory infection; R07.89 Other chest pain; I10 Essential (primary) hypertension; G47.33 Obstructive sleep apnea (adult) (pediatric); B18.2 Chronic viral hepatitis C; K21.9 Gastro-esophageal reflux disease without esophagitis; E11.65 Type 2 diabetes mellitus with hyperglycemia; E11.42 Type 2 diabetes mellitus with diabetic polyneuropathy; E78.5 Hyperlipidemia, unspecified; R63.1 Polydipsia; E87.1 Hypo-osmolality and hyponatremia; F41.8 Other specified anxiety disorders; F25.9 Schizoaffective disorder, unspecified; E03.9 Hypothyroidism, unspecified; F17.290 Nicotine dependence, other tobacco product, uncomplicated; E66.01 Morbid (severe) obesity due to excess calories; Z68.41 Body mass index [BMI] 40.0-44.9, adult; Z79.4 Long term (current) use of insulin; Z79.82 Long term (current) use of aspirin; Z79.899 Other long term (current) drug therapy; Z99.89 Dependence on other enabling machines and devices
CPT/HCPCS: 71045; 80048; 80053; 82550; 82553; 82962 ×2; 83690; 83735; 83880; 84484 ×3; 85007; 85025; 85027; 85379; 85610; 85730; 93005; 94640 ×2; 94760; 99285; 99406; G0378; 36415; 36416; J1815; J7506; J7620

== ENCOUNTER 2017-07-14 21:31 | Emergency (ER) | payer MEDICARE ==
[2017-07-14 22:09] LABS: #Basophils 0.1 thou/uL (0.0-0.2); #Eosinphils 0.1 thou/uL (0.0-0.7); #Lymphocytes 2.9 thou/uL (1.20-3.40); #Monocytes 0.6 thou/uL (0.11-0.59); #Neutrophils 4.2 thou/uL (1.40-6.50); %Basophils 0.8 % (0.0-1.0); %Eosinophils 1.1 % (0.0-10.0); %Lymphocytes 36.8 % (21.0-51.0); %Monocytes 7.8 % (0.0-10.0); %Neutrophils 53.4 % (42.0-75.0); Hemoglobin 15.3 g/dL (14.0-18.0); Mean Corpuscular HGB CONC 35.1 g/dL (32.0-36.0); Mean Corpuscular Hemoglobin 30.2 pg (27.0-31.0); Mean Corpuscular Volume 86.2 fl (80.0-94.0); Mean Platelet Volume 8.3 fL (7.4-10.4); Platelet Count 169 thou/uL (130-400); RBC Distribution Width 11.9 % (11.5-14.5); Red Blood Cell (RBC) Count 5.08 mill/uL (4.70-6.10); White Blood Cell (WBC) Count 7.9 thou/uL (4.8-10.8)
[2017-07-14 22:33] LABS: ALT (SGPT) 13 U/L (8-55); AST (SGOT) 15 U/L (5-34); Albumin 4.1 g/dL (3.5-5.0); Alkaline Phosphatase 135 U/L (40-150); Anion Gap 15 mmol/L (10-20); BUN (Urea Nitrogen) 13 mg/dL (8.4-25.7); Bilirubin, Total 0.9 mg/dL (0.2-1.2); Calc. Creatinine Clearance 0 mL/min (70-130); Calcium 10.1 mg/dL (7.8-10.44); Carbon Dioxide 26 mmol/L (22-29); Chloride 97 mmol/L (98-107); Estimated GFR-MDRD 90; Glucose 409 mg/dL (70-105); Protein, Total 7.1 g/dL (6.0-8.3); Sodium 134 mmol/L (136-145)
== END 2017-07-15 01:59 | disposition home or self-care (01) ==
LOC: ERS 21:31
DX: E86.0 Dehydration (principal); J44.9 Chronic obstructive pulmonary disease, unspecified; G47.30 Sleep apnea, unspecified; E11.42 Type 2 diabetes mellitus with diabetic polyneuropathy; E03.9 Hypothyroidism, unspecified; E78.5 Hyperlipidemia, unspecified; I10 Essential (primary) hypertension; E66.9 Obesity, unspecified; F25.9 Schizoaffective disorder, unspecified; F17.220 Nicotine dependence, chewing tobacco, uncomplicated; Z79.4 Long term (current) use of insulin; Z79.82 Long term (current) use of aspirin; Z79.899 Other long term (current) drug therapy
CPT/HCPCS: 36416; 80053; 85025; 93005; 96360; 96361

== ENCOUNTER 2017-11-01 01:47 | Emergency (ER) | payer MEDICARE ==
[2017-11-01] MEDS ORDERED: HYDROcodone/Acetaminophen 10/325 mg Tablet ONE (03:00)
== END 2017-11-01 03:04 | disposition home or self-care (01) ==
LOC: ERS 01:47
DX: E11.40 Type 2 diabetes mellitus with diabetic neuropathy, unspecified (principal); J44.9 Chronic obstructive pulmonary disease, unspecified; I10 Essential (primary) hypertension; F17.220 Nicotine dependence, chewing tobacco, uncomplicated
CPT/HCPCS: 99406

== ENCOUNTER 2017-11-16 19:15 | Emergency (ER) | payer MEDICARE ==
[2017-11-16 20:57] LABS: #Basophils 0.1 thou/uL (0.0-0.2); #Eosinphils 0.1 thou/uL (0.0-0.7); #Lymphocytes 2.5 thou/uL (1.20-3.40); #Monocytes 0.7 thou/uL (0.11-0.59); #Neutrophils 5.2 thou/uL (1.40-6.50); %Basophils 0.9 % (0.0-1.0); %Eosinophils 1.1 % (0.0-10.0); %Lymphocytes 29.3 % (21.0-51.0); %Monocytes 7.7 % (0.0-10.0); Hemoglobin 14.3 g/dL (14.0-18.0); Mean Corpuscular HGB CONC 32.9 g/dL (32.0-36.0); Mean Corpuscular Hemoglobin 28.4 pg (27.0-31.0); Mean Corpuscular Volume 86.1 fL (78.0-98.0); Platelet Count 177 thou/uL (130-400); RBC Distribution Width 11.8 % (11.5-14.5); Red Blood Cell (RBC) Count 5.04 mill/uL (4.70-6.10); White Blood Cell (WBC) Count 8.4 thou/uL (4.8-10.8)
[2017-11-16 21:20] LABS: ALT (SGPT) 15 U/L (8-55); AST (SGOT) 13 U/L (5-34); Albumin 4.1 g/dL (3.5-5.0); Alkaline Phosphatase 81 U/L (40-150); Anion Gap 13 mmol/L (10-20); BUN (Urea Nitrogen) 12 mg/dL (8.4-25.7); Bilirubin, Total 0.8 mg/dL (0.2-1.2); CK (CPK) 134 U/L (30-200); Calc. Creatinine Clearance 0 mL/min (70-130); Calcium 9.1 mg/dL (7.8-10.44); Carbon Dioxide 25 mmol/L (22-29); Chloride 103 mmol/L (98-107); Estimated GFR-MDRD Greater than 90; Globulin 2.4 g/dL (2.4-3.5); Glucose 367 mg/dL (70-105); Protein, Total 6.5 g/dL (6.0-8.3); Sodium 137 mmol/L (136-145)
== END 2017-11-16 21:55 | disposition home or self-care (01) ==
LOC: ERS 19:15
DX: E11.65 Type 2 diabetes mellitus with hyperglycemia (principal); E03.9 Hypothyroidism, unspecified; E11.40 Type 2 diabetes mellitus with diabetic neuropathy, unspecified; E78.5 Hyperlipidemia, unspecified; E66.9 Obesity, unspecified; I10 Essential (primary) hypertension; F25.9 Schizoaffective disorder, unspecified; G47.30 Sleep apnea, unspecified; J44.9 Chronic obstructive pulmonary disease, unspecified
CPT/HCPCS: 36415; 36416; 80053; 82550; 85025; 96360

== ENCOUNTER 2017-12-14 16:18 | Emergency (ER) | payer MEDICARE ==
[2017-12-14 16:54] LABS: #Eosinphils 0.1 thou/uL (0.0-0.7); #Lymphocytes 1.8 thou/uL (1.20-3.40); #Monocytes 0.6 thou/uL (0.11-0.59); #Neutrophils 5.1 thou/uL (1.40-6.50); %Basophils 0.5 % (0.0-1.0); %Lymphocytes 23.8 % (21.0-51.0); %Monocytes 7.5 % (0.0-10.0); %Neutrophils 67.1 % (42.0-75.0); Hemoglobin 14.7 g/dL (14.0-18.0); Mean Corpuscular HGB CONC 34.4 g/dL (32.0-36.0); Mean Corpuscular Hemoglobin 29.5 pg (27.0-31.0); Mean Corpuscular Volume 85.7 fL (78.0-98.0); Mean Platelet Volume 8.2 fL (7.4-10.4); Platelet Count 178 thou/uL (130-400); Red Blood Cell (RBC) Count 4.98 mill/uL (4.70-6.10); White Blood Cell (WBC) Count 7.7 thou/uL (4.8-10.8)
--- NOTE | 2017-12-14 17:00 | RAD ---
CHEST ONE VIEW: History: Chest pain. Comparison: 05-16-17 FINDINGS: Cardiac silhouette is magnified by projection. Pulmonary vasculature is upper limits of normal. Media stinum is midline. No lobar consolidation or evidence of pneumothorax. monitor tech leads overlie the chest. IMPRESSION: No active cardiopulmonary abnormalities are demonstrated. POS: [facility]
[2017-12-14] MEDS ORDERED: Nitroglycerin 0.4 MG TAB (25 Tab Bottle) ONE (17:07)
[2017-12-14 17:15] LABS: ALT (SGPT) 19 U/L (8-55); AST (SGOT) 16 U/L (5-34); Albumin 4.2 g/dL (3.5-5.0); Alkaline Phosphatase 71 U/L (40-150); Anion Gap 13 mmol/L (10-20); BUN (Urea Nitrogen) 7 mg/dL (8.4-25.7); Bilirubin, Total 1.2 mg/dL (0.2-1.2); Calc. Creatinine Clearance 0 mL/min (70-130); Calcium 9.5 mg/dL (7.8-10.44); Carbon Dioxide 27 mmol/L (22-29); Chloride 99 mmol/L (98-107); Estimated GFR-MDRD 68; Globulin 2.5 g/dL (2.4-3.5); Glucose 231 mg/dL (70-105); Lipase 19 U/L (8-78); Potassium 4.1 mmol/L (3.5-5.1); Protein, Total 6.7 g/dL (6.0-8.3); Sodium 135 mmol/L (136-145)
[2017-12-14 17:18] LABS: CKMB 2.5 ng/mL (0-6.6); Troponin I Less than 0.010 ng/mL (< 0.028)
--- NOTE | 2017-12-14 18:27 | ULT ---
SONOGRAM RIGHT UPPER QUADRANT: History: Right upper quadrant pain. FINDINGS: Echogenic stone is present within the incompletely distended gallbladder. No gallbladder wall thicken ing or pericholecystic fluid. Common duct is 0.3 cm. Liver is unremarkable without focal mass or intr ahepatic biliary dilatation. No free fluid. IMPRESSION: Cholelithiasis. No evidence for acute biliary obstruction. POS: [facility]
== END 2017-12-14 19:57 | disposition home or self-care (01) ==
LOC: ERS 16:18
DX: R07.9 Chest pain, unspecified (principal); R10.10 Upper abdominal pain, unspecified; E11.42 Type 2 diabetes mellitus with diabetic polyneuropathy; E03.9 Hypothyroidism, unspecified; I10 Essential (primary) hypertension; E78.5 Hyperlipidemia, unspecified; E66.9 Obesity, unspecified; F25.9 Schizoaffective disorder, unspecified; F17.220 Nicotine dependence, chewing tobacco, uncomplicated; Z79.82 Long term (current) use of aspirin; Z79.899 Other long term (current) drug therapy; Z79.4 Long term (current) use of insulin
CPT/HCPCS: 36415; 36416; 71045; 76705; 80053; 82553; 83690; 84484; 85025; 93005

== ENCOUNTER 2017-12-18 12:22 | Emergency (ER) | payer MEDICARE ==
[2017-12-18] MEDS ORDERED: HYDROcodone/Acetaminophen 5/325 mg Tablet ONE (13:44)
[2017-12-18] MEDS ORDERED: Ketorolac Tromethamine 30 MG/ML VIAL ONE (13:44)
== END 2017-12-18 14:20 | disposition home or self-care (01) ==
LOC: ERS 12:22
DX: S16.1XXA Strain of muscle, fascia and tendon at neck level, initial encounter (principal); Z71.6 Tobacco abuse counseling; F17.220 Nicotine dependence, chewing tobacco, uncomplicated; J44.9 Chronic obstructive pulmonary disease, unspecified; G47.30 Sleep apnea, unspecified; E11.42 Type 2 diabetes mellitus with diabetic polyneuropathy; E03.9 Hypothyroidism, unspecified; E66.9 Obesity, unspecified; F25.9 Schizoaffective disorder, unspecified; Z79.82 Long term (current) use of aspirin; Z79.899 Other long term (current) drug therapy; Z79.84 Long term (current) use of oral hypoglycemic drugs; X58.XXXA Exposure to other specified factors, initial encounter
CPT/HCPCS: 96372; 99406; J1885

== ENCOUNTER 2018-06-19 13:56 | Emergency (ER) | payer MEDICARE ==
[2018-06-19 15:04] LABS: #Basophils 0.1 thou/uL (0.0-0.2); #Eosinphils 0.1 thou/uL (0.0-0.7); #Lymphocytes 1.9 thou/uL (1.20-3.40); #Monocytes 0.4 thou/uL (0.11-0.59); #Neutrophils 3.5 thou/uL (1.40-6.50); %Basophils 0.8 % (0.0-1.0); %Eosinophils 1.2 % (0.0-10.0); %Lymphocytes 31.9 % (21.0-51.0); %Monocytes 7.1 % (0.0-10.0); Hemoglobin 15.2 g/dL (14.0-18.0); Mean Corpuscular HGB CONC 34.8 g/dL (32.0-36.0); Mean Corpuscular Hemoglobin 29.7 pg (27.0-31.0); Mean Corpuscular Volume 85.3 fL (78.0-98.0); Mean Platelet Volume 8.5 fL (7.4-10.4); Platelet Count 158 thou/uL (130-400); RBC Distribution Width 11.9 % (11.5-14.5)
[2018-06-19 15:27] LABS: ALT (SGPT) 16 U/L (8-55); AST (SGOT) 13 U/L (5-34); Albumin 4.3 g/dL (3.5-5.0); Alkaline Phosphatase 71 U/L (40-150); Anion Gap 11 mmol/L (10-20); BUN (Urea Nitrogen) 9 mg/dL (8.4-25.7); Calc. Creatinine Clearance 0 mL/min (70-130); Calcium 9.3 mg/dL (7.8-10.44); Carbon Dioxide 28 mmol/L (22-29); Chloride 102 mmol/L (98-107); Estimated GFR-MDRD Greater than 90; Globulin 2.6 g/dL (2.4-3.5); Glucose 199 mg/dL (70-105); Lipase 14 U/L (8-78); Potassium 3.9 mmol/L (3.5-5.1); Protein, Total 6.9 g/dL (6.0-8.3); Sodium 137 mmol/L (136-145)
[2018-06-19 15:33] LABS: Bilirubin Negative (Negative); Blood, Urine Negative (Negative); Clarity CLOUDY (Clear); Glucose, Urine (Dipstick) Negative (Negative); Leukocyte Negative (Negative); Nitrite Negative (Negative); Protein, Urine (Dipstick) Negative (Neg-Trace); Specific Gravity, Urine 1.002 (1.002-1.036); Urobilinogen 0.2 mg/dL (0.2-1.0)
--- NOTE | 2018-06-19 15:33 | CT ---
Exam: Abdomen CT without contrast Pelvic CT without contrast HISTORY: Abdominal and back pain, x1 week. Difficulty urinating. COMPARISON: None FINDINGS: Abdomen CT: Lung bases:Minimal scar and atelectasis. Heart size: Nonenlarged Aorta: Normal caliber. No periaortic fat stranding. Solid organs: Limited evaluation by the lack of IV contrast. Grossly no abnormality Lymph nodes: No gastrohepatic, retrocrural or periportal lymphadenopathy Gallbladder: Cholelithiasis, without evidence of cholecystitis Mesentery: No mass, lymphadenopathy, free air or free fluid Kidneys: Bilaterally, no hydronephrosis, nephrolithiasis or perinephric fat stranding. Bilateral uret ers have a normal caliber. No hydroureter, periureteral fat stranding or ureterolithiasis. 1.7 cm cyst in the mid right renal cortex. Alimentary canal: Limited evaluation by the lack of oral contrast administration. No evidence of diana l obstruction. Unremarkable ileocecal junction. Normal caliber appendix. Scattered fecal material in a nondistended, nondilated colon. CT PELVIS: No mass, adenopathy, free air or free fluid. Urinary bladder: There is mucosal thickening of the urinary bladder which may in part be due to inade quate distention Osseous structures: No lytic or blastic lesions IMPRESSION: 1. No evidence of obstructive uropathy 2. Cholelithiasis without evidence of cholecystitis 3. Normal caliber appendix. 4. Urinary bladder mucosal prominence which may in part be due to inadequate distention. Correlate c linically.
== END 2018-06-19 17:30 | disposition home or self-care (01) ==
LOC: ERS 13:56
DX: R10.2 Pelvic and perineal pain (principal); R33.9 Retention of urine, unspecified; J44.9 Chronic obstructive pulmonary disease, unspecified; G47.30 Sleep apnea, unspecified; E11.9 Type 2 diabetes mellitus without complications; E03.9 Hypothyroidism, unspecified; E78.5 Hyperlipidemia, unspecified; I10 Essential (primary) hypertension; E66.9 Obesity, unspecified; F25.9 Schizoaffective disorder, unspecified; F17.220 Nicotine dependence, chewing tobacco, uncomplicated; Z79.899 Other long term (current) drug therapy; Z79.82 Long term (current) use of aspirin; Z79.84 Long term (current) use of oral hypoglycemic drugs
CPT/HCPCS: 36415; 74176; 80053; 81003; 83690; 85025

== ENCOUNTER 2018-06-21 17:56 | Emergency (ER) | payer MEDICARE ==
[2018-06-21 18:32] LABS: Bilirubin Negative (Negative); Blood, Urine Negative (Negative); Clarity CLEAR (Clear); Glucose, Urine (Dipstick) Negative (Negative); Leukocyte Negative (Negative); Nitrite Negative (Negative); Protein, Urine (Dipstick) Negative (Neg-Trace); Specific Gravity, Urine 1.004 (1.002-1.036); Urobilinogen 0.2 mg/dL (0.2-1.0)
== END 2018-06-21 18:58 | disposition home or self-care (01) ==
LOC: ERS 17:56
DX: R10.30 Lower abdominal pain, unspecified (principal); J44.9 Chronic obstructive pulmonary disease, unspecified; E11.40 Type 2 diabetes mellitus with diabetic neuropathy, unspecified; E03.9 Hypothyroidism, unspecified; I10 Essential (primary) hypertension; E66.9 Obesity, unspecified; F25.9 Schizoaffective disorder, unspecified; F17.220 Nicotine dependence, chewing tobacco, uncomplicated; Z79.899 Other long term (current) drug therapy; Z79.82 Long term (current) use of aspirin; Z79.891 Long term (current) use of opiate analgesic
CPT/HCPCS: 81003; 99283

== ENCOUNTER 2018-07-10 00:24 | Inpatient (IN) | payer MEDICARE ==
[2018-07-10 00:57] LABS: #Basophils 0.1 thou/uL (0.0-0.2); #Eosinphils 0.1 thou/uL (0.0-0.7); #Lymphocytes 2.8 thou/uL (1.20-3.40); #Monocytes 0.6 thou/uL (0.11-0.59); #Neutrophils 3.9 thou/uL (1.40-6.50); %Basophils 0.8 % (0.0-1.0); %Eosinophils 1.7 % (0.0-10.0); %Lymphocytes 37.2 % (21.0-51.0); %Monocytes 7.4 % (0.0-10.0); %Neutrophils 52.9 % (42.0-75.0); Hemoglobin 12.9 g/dL (14.0-18.0); Mean Corpuscular HGB CONC 34.9 g/dL (32.0-36.0); Mean Corpuscular Hemoglobin 29.6 pg (27.0-31.0); Mean Corpuscular Volume 84.7 fL (78.0-98.0); Mean Platelet Volume 8.1 fL (7.4-10.4); Platelet Count 151 thou/uL (130-400); RBC Distribution Width 11.6 % (11.5-14.5); Red Blood Cell (RBC) Count 4.37 mill/uL (4.70-6.10); White Blood Cell (WBC) Count 7.4 thou/uL (4.8-10.8)
[2018-07-10] MEDS ORDERED: Morphine 4 MG/ML VIAL ONE (00:57)
[2018-07-10] MEDS ORDERED: Ondansetron PF 4 MG/2 ML Vial ONE (00:58)
[2018-07-10 01:19] LABS: ALT (SGPT) 11 U/L (8-55); AST (SGOT) 14 U/L (5-34); Albumin 3.8 g/dL (3.5-5.0); Alkaline Phosphatase 71 U/L (40-150); Anion Gap 14 mmol/L (10-20); BUN (Urea Nitrogen) 13 mg/dL (8.4-25.7); Bilirubin, Total 0.9 mg/dL (0.2-1.2); CK (CPK) 259 U/L (30-200); Calc. Creatinine Clearance 0 mL/min (70-130); Calcium 8.7 mg/dL (7.8-10.44); Carbon Dioxide 24 mmol/L (22-29); Chloride 92 mmol/L (98-107); Estimated GFR-MDRD Greater than 90; Globulin 1.9 g/dL (2.4-3.5); Glucose 233 mg/dL (70-105); Lipase 17 U/L (8-78); Potassium 3.7 mmol/L (3.5-5.1); Protein, Total 5.7 g/dL (6.0-8.3); Sodium 126 mmol/L (136-145)
[2018-07-10 03:00] LABS: Bilirubin Negative (Negative); Blood, Urine Negative (Negative); Clarity CLEAR (Clear); Glucose, Urine (Dipstick) Negative (Negative); Leukocyte Negative (Negative); Nitrite Negative (Negative); Protein, Urine (Dipstick) Negative (Neg-Trace); Specific Gravity, Urine 1.003 (1.002-1.036); Urobilinogen 0.2 mg/dL (0.2-1.0)
[2018-07-10 04:15] LABS: Troponin I Less than 0.010 ng/mL (< 0.028)
[2018-07-10] MEDS ORDERED: Ondansetron PF 4 MG/2 ML Vial IVP PRN ×2 (04:17→10:11)
[2018-07-10] MEDS ORDERED: Ondansetron ODT 4 MG TAB SL PRN (04:17)
[2018-07-10] MEDS ORDERED: HYDROcodone/Acetaminophen 5/325 mg Tablet PO PRN ×4 (04:17→10:11)
[2018-07-10] MEDS ORDERED: Acetaminophen 325 MG TAB PO PRN (04:17)
[2018-07-10] MEDS ORDERED: Morphine 4 MG/ML VIAL SLOW IVP PRN (04:18)
[2018-07-10 04:24] VITALS: BMI 43.8
[2018-07-10] MEDS ORDERED: Sodium Chloride 0.9% 1,000 ML IV SCH ×2 (04:30→10:11)
[2018-07-10 07:07] LABS: Troponin I Less than 0.010 ng/mL (< 0.028)
[2018-07-10 07:34] VITALS: TEMP 97.8
[2018-07-10] MEDS ORDERED: Aspirin 325 MG TAB PO SCH (08:00)
--- NOTE | 2018-07-10 08:57 | RAD ---
CHEST 1 VIEW: HISTORY: Chest pain. COMPARISON: 12/14/2017. FINDINGS: Cardiac silhouette is magnified by projection. Pulmonary vasculature upper limits of normal. Medias tinum is midline. No lobar consolidation or evidence of pneumothorax. phototypesetting equipment monitor leads overlie the chest. IMPRESSION: No active cardiopulmonary abnormalities are demonstrated. POS: [facility]
--- NOTE | 2018-07-10 09:08 | ULT ---
PRELIMINARY REPORT/[facility]/EMERGENCY AFTER HOURS PROCEDURE: EXAM: US Abdomen Limited, Right Upper Quadrant EXAM DATE/TIME: 07/10/2018 1:45 AM CLINICAL HISTORY: 58 years old, male; Pain and signs and symptoms; Abdominal pain; Patient HX: Patient reports epigastr ic chest pain started after eating this evening. He reports pain radiates to the right and to his sunita k. PT reports nausea but no vomiting. PT report pain with deep breaths. PT denies shortness of breath or palpitations TECHNIQUE: Imaging protocol: Real-time ultrasound of the abdomen with image documentation. Examination was focus ed on the right upper quadrant. COMPARISON: No relevant prior studies available. FINDINGS: Liver: Mild echogenic hepatic echotexture, suggesting hepatic steatosis. Gallbladder: Echogenic, shadowing focus within the gallbladder, compatible with calcified gallstone. Gallbladder wall is 3 mm in thickness. Sonographic Dupont sign was reportedly negative. Common bile duct: Common bile duct measures 4 mm in diameter. Pancreas: Pancreatic body appears unremarkable. Pancreatic head and tail are not visualized secondary to overlying bowel gas. Right kidney: Right kidney is normal in appearance and measures 12.7 cm in length. IMPRESSION: 1. Cholelithiasis, without sonographic evidence of acute cholecystitis. 2. Mild hepatic steatosis. Thank you for allowing us to participate in the care of your patient. Dictated and Authenticated by: Ovidio Loya MD 07/10/2018 3:25 AM Central Time ([place] & [place]) FINAL REPORT GALLBLADDER ULTRASOUND: Final report is in agreement with the above-provided preliminary interpretation. Cholelithiasis is present. There is a borderline-sized gallbladder wall measuring slightly less than 3 mm. Dupont's sign is reported as negative. Correlate with physical exam. POS: [facility]
[2018-07-10] MEDS ORDERED: PROVENTIL INHALER 6.7 G (200 INHALATIONS) INH PRN (10:11)
[2018-07-10] MEDS ORDERED: Dextrose 50% Abboject 50 ML SYRINGE SLOW IVP PRN (10:11)
[2018-07-10] MEDS ORDERED: Acetaminophen 500 MG TAB PO PRN (10:11)
[2018-07-10] MEDS ORDERED: Ondansetron ODT 4 MG TAB PO PRN (10:11)
[2018-07-10] MEDS ORDERED: HumaLOG 300 UNITS/3 ML VIAL SC PRN ×2 (10:11)
[2018-07-10] MEDS ORDERED: hydrALAZINE 20 MG/ML VIAL SLOW IVP PRN (10:11)
[2018-07-10] MEDS ORDERED: traMADol HCl 50 MG TAB PO PRN (10:11)
[2018-07-10] MEDS ORDERED: Dextrose 5% in Water 1,000 ML IV PRN (10:11)
--- NOTE | 2018-07-10 11:13 | HP ---
PRIMARY CARE PROVIDER: Dr. Damon with [facility] in [place], [place]. CHIEF COMPLAINT: Abdominal pain. HISTORY OF PRESENT ILLNESS: This is a 58-year-old male, who presented to [facility] complaining of mid epigastric abdominal pain, which began before eating last p.m. The patient states he had no specific inciting event, recent travel history, direct trauma or change to his bowel habits. The patient does admit to some increased constipation after taking tramadol, but has noted regular bowel movements in the last 24 to 48 hours. The patient noted increased pain in the abdomen with deep breaths with some radiation of the pain to the mid portion of his back. The patient also stated he felt nauseated without emesis and has noted some worsening symptoms when eating. The patient denied any specific chest pain, cough, congestion, fever, left arm discomfort, or unilateral weakness. The patient states that he had similar symptoms approximately 2 years ago, which resolved spontaneously. In the emergency room, the patient underwent general evaluation including abdominal ultrasound showing evidence of cholelithiasis without acute cholecystitis. Common bile duct measured 4 mm in diameter. The patient received intravenous normal saline x2 L in addition to Zofran and morphine sulfate. PAST MEDICAL HISTORY: 1. Hypertension. 2. Chronic obstructive pulmonary disease. 3. Chronic hepatitis C. 4. Obstructive sleep apnea with nocturnal CPAP. 5. Gastroesophageal reflux disease. 6. Peripheral neuropathy. 7. Diabetes mellitus type 2, insulin requiring. 8. Hyperlipidemia. 9. History of psychogenic polydipsia with hyponatremia. 10. Morbid obesity. 11. Hypothyroidism. 12. Anxiety with depression. 13. Schizoaffective disorder. PAST SURGICAL HISTORY: 1. Status post back surgery. 2. Status post bilateral carpal tunnel release. 3. Status post hernia repair. CURRENT MEDICATIONS: 1. ProAir RespiClick 90 mcg inhaled q.4 hours p.r.n. 2. Aspirin 81 mg p.o. daily. 3. Cogentin 0.5 mg p.o. at bedtime. 4. BuSpar 5 mg p.o. b.i.d. 5. Gabapentin 300 mg p.o. b.i.d. 6. Haldol 5 mg p.o. at bedtime. 7. Humalog 10 units subcutaneously a.c. 8. Levemir 50 units subcutaneously b.i.d. 9. Levothyroxine 88 mcg p.o. daily. 10. Lisinopril 20 mg p.o. daily. 11. Metformin extended release 2000 mg p.o. daily. 12. Methocarbamol 500 mg p.o. b.i.d. 13. Zoloft 100 mg p.o. b.i.d. 14. Zocor 20 mg p.o. at bedtime. 15. Tramadol 50 mg p.o. as needed for pain. 16. Zantac 150 mg p.o. b.i.d. ALLERGIES: NO KNOWN DRUG ALLERGIES. FAMILY HISTORY: No inheritable diseases per patient report. SOCIAL HISTORY: The patient is and residing in [place], [place]. Disabled. of the armed services. Prior history of smoking up to 2 to 3 packs per day. No current cigarette use, but uses smokeless tobacco. No alcohol or illicit drug use. REVIEW OF SYSTEMS: CONSTITUTIONAL: Negative for weight loss or gain, ability to conduct usual activities. SKIN: Negative for rash, itching. EYES: Negative for double vision, pain. ENT/MOUTH: Negative for nose bleeding, neck stiffness, pain, tenderness. CARDIOVASCULAR: Negative for palpitations, dyspnea on exertion, orthopnea. RESPIRATORY: Negative for shortness of breath, wheezing, cough, hemoptysis, fever or night sweats. GASTROINTESTINAL: Negative for poor appetite, abdominal pain, heartburn, nausea, vomiting, constipation, or diarrhea. GENITOURINARY: Negative for urgency, frequency, dysuria, nocturia. MUSCULOSKELETAL: Negative for pain, swelling. NEUROLOGIC/PSYCHIATRIC: Negative for anxiety, depression. ALLERGY/IMMUNOLOGIC: Negative for skin rash, bleeding tendency. Otherwise negative except as stated per HPI. PHYSICAL EXAMINATION: VITAL SIGNS: On admission, blood pressure 119/75, pulse 60, respiratory rate 12, temperature 97.8 degrees Fahrenheit, and O2 saturation 96% on room air. GENERAL APPEARANCE: This is a 58-year-old male, alert and oriented x3, pleasant, in no acute distress. HEENT: Pupils are equal, round, reactive to light and accommodation. Extraocular muscles are intact. No scleral icterus. No conjunctival injection. Nares are patent. OP is clear. Teeth in fair repair. NECK: Supple. No cervical adenopathy. No thyromegaly. No carotid bruits. No JVD appreciated. Cervical spine with full active and passive range of motion. No meningeal signs noted. CHEST: Lungs are clear to auscultation bilaterally. CARDIOVASCULAR: S1 and S2 without noted murmur, rub, or gallop. ABDOMEN: Obese with mild tenderness to palpation in the mid epigastric region. Landmarks are difficult to palpate due to the patient's body habitus. No palpable mass. Bowel sounds are positive in all 4 quadrants. EXTREMITIES: Warm and dry with fair turgor. No clubbing, cyanosis, or asymmetric edema appreciated. Pulses are palpable distally at the dorsalis pedis, posterior tibial, and popliteal arteries bilaterally. Capillary refill less than 2 seconds. NEUROLOGIC: Cranial nerves 2 through 12 are grossly intact. No focal or lateralizing signs appreciated. PERTINENT LAB AND X-RAY FINDINGS: Sodium 126, potassium 3.7, chloride 92, CO2 of 24, BUN 13, creatinine 0.75, estimated GFR greater than 90, glucose 233, and calcium 8.7. LFTs within normal limits. Total CK of 259. Troponin I negative x3. Albumin 3.8. Lipase 17. CBC showed a white blood cell count of 7.4, hemoglobin 13, hematocrit 37, and platelet count 151 with normal differential. Urinalysis negative. Portable chest x-ray dated 07/10/2018 showed no acute cardiopulmonary process. Abdominal ultrasound dated 07/10/2018, positive for cholelithiasis without acute cholecystitis. Hepatic steatosis with common bile duct measuring 4 mm in diameter. EKG dated 07/10/2018 by my interpretation shows sinus mechanism with heart rates in the 70s. Attenuated R-waves noted in the precordial leads. Normal axis. No acute ST-T wave changes appreciated. ASSESSMENT AND PLAN: 1. Abdominal pain. The patient will be admitted to the telemetry unit. Exact etiology is unclear; however, there is a suspicion that the patient's presentation is related to cholelithiasis. We will continue intravenous fluids with normal saline at 75 mL/hour. See #2 for management and workup. [place] 5/325 mg 1 to 2 tablets p.o. q.6 hours p.r.n. pain. 2. Cholelithiasis. We will proceed with HIDA scan with ejection fraction. Current LFTs and total bilirubin within normal limits. We will consult General Surgery Service for further recommendations and management. Pain control as clinically indicated. 3. Chronic hyponatremia. Stable currently. We will continue low volume intravenous normal saline. Repeat sodium level in the a.m. 4. Diabetes mellitus type 2, insulin requiring. Insulin sliding scale for reflexive coverage. Hold long-acting insulin pending regular oral intake. Serial Accu-Cheks before meals and at bedtime. 5. Schizoaffective disorder. Continue outpatient psychotropic regimen. 6. Prophylaxis. Sequential compression devices while in bed. Pepcid 20 mg IV q.12 hours. 7. Code status is full. Surrogate medical decision maker is the patient's spouse. Job ID: [id number]
[2018-07-10] MEDS ORDERED: Ketorolac Tromethamine 30 MG/ML VIAL IVP PRN (13:12)
[2018-07-10] MEDS ORDERED: Acetaminophen 1,000 MG in Premix Bag 1 BAG IVPB PRN (13:12)
[2018-07-10] MEDS ORDERED: Acetaminophen 1,000 MG in Premix Bag 1 BAG IVPB SCH (13:15)
[2018-07-10] MEDS ORDERED: Ketorolac Tromethamine 30 MG/ML VIAL IVP SCH (13:30)
--- NOTE | 2018-07-10 14:46 | HP ---
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 Ultrasound revealed gallstones with normal bile duct caliber. CBC and comprehensive metabolic profile were normal. Lipase was normal. Liver function tests normal. The patient has a HIDA scan ordered, which I have canceled. The patient has characteristic right upper quadrant, right flank, right upper back symptoms, postprandial, intermittent. Plan is for laparoscopic cholecystectomy today. He understands risks of infection, bleeding, visceral injury, and consents. He understands that he should be able to go home later today. ALLERGIES: NONE. SOCIAL HISTORY: Tobacco, none, but he does dip snuff. None consumed today. Alcohol, none. MEDICATIONS: 1. . 2. BuSpar 5 mg b.i.d. 3. Zantac 150 b.i.d. 4. Zocor 20 mg at bedtime. 5. Sertraline 100 mg b.i.d. 6. Methocarbamol 500 mg b.i.d. 7. Lisinopril 20 mg daily. 8. Levothyroxine 88 mcg daily. 9. . 10. Humalog 10 units subcu a.c. 11. Tramadol p.r.n. 12. Metformin 2000 mg p.o. daily. 13. Aspirin 81 mg a day. 14. Albuterol inhaler 90 mcg as needed. 15. Gabapentin 300 mg b.i.d. 16. Haldol 5 mg at bedtime. 17. Cogentin 0.5 mg at bedtime. PAST SURGICAL HISTORY: Lumbar surgery, right inguinal hernia repair, and bilateral carpal tunnel surgeries. PAST MEDICAL HISTORY: Morbid obesity, 5 feet 5 inches, 263 pounds, 43 BMI; insulin-dependent diabetes mellitus type 2; hypertension; COPD; hepatitis C; sleep apnea; history of GERD; psychogenic polydipsia; hyponatremia; and history of schizoaffective disorder. REVIEW OF SYSTEMS: Noncontributory, otherwise no cardiac symptoms. No cardiac history. No history of colonoscopy. PHYSICAL EXAMINATION: VITAL SIGNS: 5 feet 5 inches, 263 pounds 43 BMI. Temperature 97.5, pulse 60, and blood pressure 119/75. HEAD, EARS, EYES, NOSE, AND THROAT: Unremarkable. Sclerae nonicteric. LUNGS: Clear to auscultation. No wheezing. CARDIAC: Regular rate and rhythm without murmur or gallop. ABDOMEN: Obese, soft, and nontender. Except his right upper quadrant, he has mild guarding. EXTREMITIES: Unremarkable. ASSESSMENT AND PLAN: Cholecystitis, cholelithiasis. Recommend laparoscopic video cholecystectomy. Risks of infection, bleeding, reoperation explained. Questions answered. Job ID: [id number]
[2018-07-10 15:30] VITALS: BP 152/76
[2018-07-10] MEDS ORDERED: Famotidine/PF 20 mg/2ml Vial SLOW IVP SCH (21:00)
[2018-07-10] MEDS ORDERED: Benztropine 1 MG TAB PO SCH (21:00)
[2018-07-10] MEDS ORDERED: Gabapentin 300 MG CAP PO SCH (21:00)
[2018-07-10] MEDS ORDERED: Methocarbamol 500 MG TAB PO SCH (21:00)
[2018-07-10] MEDS ORDERED: busPIRone HCl 10 MG TAB PO SCH (21:00)
[2018-07-10] MEDS ORDERED: Haloperidol 5 MG TAB PO SCH (21:00)
[2018-07-11] MEDS ORDERED: Levothyroxine Sodium 88 MCG TAB PO SCH (06:00)
--- NOTE | 2018-07-11 06:51 | DIS ---
DATE OF ADMISSION: 07/10/2018 DATE OF DISCHARGE: 07/10/2018 DISCHARGE DIAGNOSES: 1. Abdominal pain, suspected secondary to Cholelithiasis. 2. Cholelithiasis. 3. Chronic hyponatremia. 4. Diabetes mellitus type 2, insulin requiring. 5. Schizoaffective disorder. CONSULTATIONS: Dr. Gregory with General Surgery Service. PERTINENT LAB AND X-RAY FINDINGS: Sodium 126. Total bilirubin 0.9, AST 14, ALT 11, alkaline phosphatase 71, total CK 259. Troponin I negative x3. Lipase 17. CBC showed a white blood cell count of 7.4, hemoglobin 13, hematocrit 37, platelet count 151. Urinalysis negative. Portable chest x-ray dated 07/10/2018 showed no acute cardiopulmonary process. Abdominal ultrasound dated 07/10/2018 showed cholelithiasis with mild hepatic steatosis. HOSPITAL COURSE: The patient was initially admitted to the telemetry unit after presenting with increasing abdominal pain in the right upper quadrant. The patient underwent evaluation including abdominal ultrasound showing evidence of cholelithiasis with normal caliber common bile duct. The patient was evaluated by the General Surgery Service after consideration for potential cholecystectomy. The patient received intravenous fluids as well as Zofran and morphine sulfate. The patient continued to complain throughout the hospital course that he needed water and it was not brought to him fast enough. The patient caused disturbances with the nursing staff and medical assembly on the telemetry floor throughout the morning on 07/10/2018. The patient threatened to leave multiple times during the initial evaluation by the primary attending and after subsequent evaluation by the General Surgery who was planning cholecystectomy. The patient was made n.p.o. at which point the patient complained continuously that he was hungry and needed to eat. The patient was redirected multiple times regarding his plan of care. However, the patient continued to escalate and threatened to leave against medical advice. The patient was cautioned regarding his current condition and need for evaluation. However, the patient decided to leave against medical advice on 07/10/2018. Job ID: [id number]
[2018-07-11] MEDS ORDERED: Lisinopril 20 MG TAB PO SCH (09:00)
[2018-07-11] MEDS ORDERED: Aspirin Chewable 81 MG TAB PO SCH (09:00)
== END 2018-07-10 15:20 | disposition left against medical advice (07) | DRG 445 ==
LOC: ERS 00:24 → 2NO 03:44
PROVIDERS: ADMIT Hospitalist; ATTEND Hospitalist
DX: K80.20 Calculus of gallbladder without cholecystitis without obstruction (principal); E87.1 Hypo-osmolality and hyponatremia; Z68.41 Body mass index [BMI] 40.0-44.9, adult; I10 Essential (primary) hypertension; J44.9 Chronic obstructive pulmonary disease, unspecified; B18.2 Chronic viral hepatitis C; G47.33 Obstructive sleep apnea (adult) (pediatric); K21.9 Gastro-esophageal reflux disease without esophagitis; E11.42 Type 2 diabetes mellitus with diabetic polyneuropathy; E78.5 Hyperlipidemia, unspecified; E66.01 Morbid (severe) obesity due to excess calories; E03.9 Hypothyroidism, unspecified; F41.9 Anxiety disorder, unspecified; F32.9 Major depressive disorder, single episode, unspecified; F25.9 Schizoaffective disorder, unspecified; Z79.82 Long term (current) use of aspirin; Z79.4 Long term (current) use of insulin; Z87.891 Personal history of nicotine dependence
CPT/HCPCS: 36415; 36416; 71045; 76705; 80053; 81003; 82550; 83690; 84484; 85025; 93005; C1725; J1885; J1956; J2270; J2405

== ENCOUNTER 2018-08-08 18:32 | Emergency (ER) | payer MEDICARE ==
[2018-08-08 19:32] LABS: #Basophils 0.1 thou/uL (0.0-0.2); #Eosinphils 0.1 thou/uL (0.0-0.7); #Lymphocytes 2.5 thou/uL (1.20-3.40); #Monocytes 0.7 thou/uL (0.11-0.59); #Neutrophils 4.3 thou/uL (1.40-6.50); %Basophils 0.8 % (0.0-1.0); %Lymphocytes 32.5 % (21.0-51.0); %Monocytes 9.2 % (0.0-10.0); %Neutrophils 56.5 % (42.0-75.0); Hemoglobin 14.2 g/dL (14.0-18.0); Mean Corpuscular HGB CONC 34.7 g/dL (32.0-36.0); Mean Corpuscular Hemoglobin 29.6 pg (27.0-31.0); Mean Corpuscular Volume 85.2 fL (78.0-98.0); Mean Platelet Volume 8.4 fL (7.4-10.4); Platelet Count 160 thou/uL (130-400); RBC Distribution Width 11.5 % (11.5-14.5); Red Blood Cell (RBC) Count 4.79 mill/uL (4.70-6.10); White Blood Cell (WBC) Count 7.6 thou/uL (4.8-10.8)
[2018-08-08 19:44] LABS: ALT (SGPT) 15 U/L (8-55); AST (SGOT) 13 U/L (5-34); Albumin 4.1 g/dL (3.5-5.0); Alkaline Phosphatase 76 U/L (40-150); Anion Gap 11 mmol/L (10-20); BUN (Urea Nitrogen) 8 mg/dL (8.4-25.7); Calc. Creatinine Clearance 0 mL/min (70-130); Carbon Dioxide 25 mmol/L (22-29); Chloride 93 mmol/L (98-107); Estimated GFR-MDRD Greater than 90; Globulin 2.4 g/dL (2.4-3.5); Glucose 174 mg/dL (70-105); Lipase 18 U/L (8-78); Potassium 4.1 mmol/L (3.5-5.1); Protein, Total 6.5 g/dL (6.0-8.3); Sodium 125 mmol/L (136-145)
[2018-08-08] MEDS ORDERED: Ondansetron ODT 4 MG TAB ONE (20:37)
[2018-08-08 22:02] LABS: Bilirubin Negative (Negative); Blood, Urine Negative (Negative); Clarity CLEAR (Clear); Glucose, Urine (Dipstick) Negative (Negative); Leukocyte Negative (Negative); Nitrite Negative (Negative); Protein, Urine (Dipstick) Negative (Neg-Trace); Specific Gravity, Urine 1.002 (1.002-1.036); Urobilinogen 0.2 mg/dL (0.2-1.0); pH, Urine 6.5 (5.0-9.0)
== END 2018-08-08 22:23 | disposition home or self-care (01) ==
LOC: ERS 18:32
DX: R11.2 Nausea with vomiting, unspecified (principal); R19.7 Diarrhea, unspecified; F25.9 Schizoaffective disorder, unspecified; F17.220 Nicotine dependence, chewing tobacco, uncomplicated
CPT/HCPCS: 36415; 80053; 81003; 83690; 84484; 85025; 93005; 96360; 96361; Q0162

== ENCOUNTER 2018-09-28 00:02 | Observation (INO) | payer MEDICARE ==
[2018-09-28 00:24] LABS: #Eosinphils 0.1 thou/uL (0.0-0.7); #Lymphocytes 2.3 thou/uL (1.20-3.40); #Monocytes 0.6 thou/uL (0.11-0.59); #Neutrophils 4.4 thou/uL (1.40-6.50); %Basophils 0.3 % (0.0-1.0); %Eosinophils 1.4 % (0.0-10.0); %Lymphocytes 31.4 % (21.0-51.0); %Monocytes 7.5 % (0.0-10.0); %Neutrophils 59.5 % (42.0-75.0); Hemoglobin 14.2 g/dL (14.0-18.0); Mean Corpuscular HGB CONC 35.6 g/dL (32.0-36.0); Mean Corpuscular Hemoglobin 30.2 pg (27.0-31.0); Mean Corpuscular Volume 84.8 fL (78.0-98.0); Mean Platelet Volume 7.6 fL (7.4-10.4); Platelet Count 133 thou/uL (130-400); RBC Distribution Width 11.5 % (11.5-14.5); Red Blood Cell (RBC) Count 4.69 mill/uL (4.70-6.10); White Blood Cell (WBC) Count 7.3 thou/uL (4.8-10.8)
[2018-09-28 00:46] LABS: ALT (SGPT) 16 U/L (8-55); AST (SGOT) 17 U/L (5-34); Albumin 4.1 g/dL (3.5-5.0); Alkaline Phosphatase 89 U/L (40-150); Anion Gap 14 mmol/L (10-20); BUN (Urea Nitrogen) 14 mg/dL (8.4-25.7); Bilirubin, Total 0.9 mg/dL (0.2-1.2); Calc. Creatinine Clearance 0 mL/min (70-130); Calcium 9.1 mg/dL (7.8-10.44); Carbon Dioxide 26 mmol/L (22-29); Chloride 94 mmol/L (98-107); Estimated GFR-MDRD 88; Globulin 2.4 g/dL (2.4-3.5); Glucose 152 mg/dL (70-105); Potassium 3.7 mmol/L (3.5-5.1); Protein, Total 6.5 g/dL (6.0-8.3); Sodium 130 mmol/L (136-145)
[2018-09-28] MEDS ORDERED: Aspirin Chewable 81 MG TAB ONE (01:15)
[2018-09-28] MEDS ORDERED: Nitroglycerin 2% Ointment 1 INCH/1 GM Packet ONE (01:28)
[2018-09-28] MEDS ORDERED: Acetaminophen 325 MG TAB PO PRN ×2 (03:41→08:10)
[2018-09-28 03:57] LABS: Troponin I Less than 0.010 ng/mL (< 0.028)
[2018-09-28] MEDS ORDERED: Dextrose 50% Abboject 50 ML SYRINGE SLOW IVP PRN ×2 (04:58→15:23)
[2018-09-28] MEDS ORDERED: Dextrose 5% in Water 1,000 ML IV PRN ×2 (04:58→15:23)
--- NOTE | 2018-09-28 05:02 | HP ---
CHIEF COMPLAINT: Chest pain. HISTORY OF PRESENT ILLNESS: This patient is a 58-year-old male, who was actually most recently admitted to this facility on July 10. At that time, the patient had some chest pains, had some gallstones found and had a consultation with Surgery with the plan for cholecystectomy. However, the patient also has underlying schizoaffective disorder. He became somewhat displeased and did not like being n.p.o. and ultimately decided to leave against medical advice. The patient returns today reporting that for the last 3 to 4 days, he has had chest pain in the center of his chest, associated with some diaphoresis, lightheadedness, nausea and shortness of breath. He states this typically only happens when he is sitting outside in the heat and once he goes back inside, it goes off, his symptoms tend to get better pretty fast. It is also much better for him when he was wearing his CPAP. The patient reports that he had similar symptoms several years ago and at that time was told that he had "too much fluid." He says he had a catheter and was given a lot of Lasix in order to improve his situation. REVIEW OF SYSTEMS: All systems reviewed. All pertinent positives and negatives noted in the history of present illness. PAST MEDICAL HISTORY: Hypertension, COPD, chronic hepatitis C, obstructive sleep apnea with use of CPAP, GERD, peripheral neuropathy, diabetes mellitus type 2, hyperlipidemia, morbid obesity, hypothyroidism, anxiety with depression, schizoaffective disorder, and history of psychogenic polydipsia with hyponatremia. PAST SURGICAL HISTORY: Back surgery, bilateral carpal tunnel release, hernia repair on the left elbow, shoulder, and skin cancer removal from the lip. FAMILY HISTORY: No heritable diseases per the patient. SOCIAL HISTORY: The patient is . He is a disabled . He has a prior history of smoking 2 to 3 packs of cigarettes per day, but has changed to smokeless tobacco. Denies alcohol or drugs. He is full code and his , Isa, would be his surrogate decision maker. ALLERGIES: NONE. CURRENT MEDICATIONS: 1. Aspirin 81 mg p.o. daily. 2. Levothyroxine 88 mcg daily. 3. Metformin 2000 mg p.o. daily. 4. Tramadol 50 mg daily. 5. Methocarbamol 1000 mg p.r.n. 6. Gabapentin 300 mg t.i.d. 7. Sertraline, unclear on the dose regimen of that. 8. Buspirone 10 mg t.i.d. 9. Trazodone 50 mg daily. 10. Ranitidine 150 mg daily. 11. Benztropine 2 mg at bedtime. 12. B12 1000 mg p.o. daily. 13. Melatonin 5 mg daily. 14. Flomax 0.4 mg daily. 15. Tylenol 325 p.r.n. 16. Lisinopril 20 mg daily. 17. Simvastatin 20 mg daily. 18. Levemir 50 units b.i.d. 19. NovoLog 10 units subcu daily after lunch. 20. Zantac 150 mg daily p.r.n. PHYSICAL EXAMINATION: VITAL SIGNS: BP 156/76, pulse 72, respirations 16, temperature 97.6, O2 saturation 96% on room air. GENERAL APPEARANCE: Age-appropriate male. He is in no distress. He is awake, alert, oriented, pleasant, and cooperative. HEENT: PERRL. No OP lesions. NECK: Supple and symmetric with no lymphadenopathy, JVD, or carotid bruits. HEART: Regular rate and rhythm. No murmurs, gallops, or rubs. LUNGS: Clear. Diminished, but no wheezes or rales. ABDOMEN: Soft, nontender, and nondistended. Positive bowel sounds. No masses. No organomegaly. EXTREMITIES: No cyanosis, clubbing, or edema. PSYCHIATRIC: Currently, the patient appears to have relatively normal affect and behavior, although he asked several times if he was okay and if everything looked okay on his workup so far. NEUROLOGIC: The patient appears to have spontaneous movement of all extremities with no gross focal deficits. LABORATORY DATA: CBC essentially normal. Chemistries; sodium is 130, chloride 94, glucose 152, otherwise CMP is normal. IMAGING: Chest x-ray per my review appears to be normal as well. EKG shows sinus rhythm at 65 beats per minute without ST or T-wave changes. IMPRESSION AND PLAN: 1. Chest pain, appears to be primarily brought on by heat and leave when he is out of the heat in a cooler condition. The patient had a negative stress test in 2017 with a normal ejection fraction. Also had a prior normal echocardiogram. We will keep in observation on telemetry. Continue to check serial cardiac isoenzymes. He has received aspirin and nitroglycerin in the emergency department. We will continue with the daily aspirin. May need a repeat stress test, although he certainly has multiple risk factors for coronary artery disease. 2. Hyponatremia, chronic, stable. 3. Chronic obstructive pulmonary disease. We will provide some nebulizer treatments, although he appears to be breathing comfortably now. 4. Diabetes mellitus. We will give some sliding scale. Keep on a diabetic diet once he is back to eating. 5. Hypertension. Continue with his usual home regimen. 6. Hyperlipidemia. Continue home dose of statin. 7. Schizoaffective disorder. Unfortunately, this was very problematic during his previous admission, it appears to be quite stable at the moment. We will need to continue on his medications once they are fully clarified and placed in the record system. Job ID: [id number]
[2018-09-28] MEDS ORDERED: Acetaminophen 500 MG TAB ONE (05:37)
[2018-09-28 06:37] LABS: Troponin I Less than 0.010 ng/mL (< 0.028)
--- NOTE | 2018-09-28 07:49 | RAD ---
EXAM: CHEST ONE VIEW HISTORY: Chest pain COMPARISON: 07/10/2018 FINDINGS: Epicardial fat pads are seen at each lung base. The cardiac silhouette is magnified by projection. Th e pulmonary vasculature is within normal limits. The lungs are clear. Degenerative changes are again seen in the spine. IMPRESSION: No acute cardiopulmonary process.
[2018-09-28 08:07] VITALS: BMI 42.3
[2018-09-28] MEDS ORDERED: Aspirin 325 mg Enteric Coated Tablet PO SCH (09:00)
[2018-09-28] MEDS ORDERED: Regadenoson 0.4 MG/5 ML SYRINGE ONE (14:05)
[2018-09-28] MEDS ORDERED: Methocarbamol 500 MG TAB PO PRN (15:21)
[2018-09-28] MEDS ORDERED: Melatonin 3 MG TAB PO PRN (15:21)
[2018-09-28] MEDS ORDERED: traMADol HCl 50 MG TAB PO PRN (15:21)
[2018-09-28] MEDS ORDERED: hydrOXYzine 25 MG TAB PO PRN (15:21)
[2018-09-28] MEDS: Gabapentin 300 MG CAP PO SCH ×2 (17:24→20:42)
[2018-09-28] MEDS: HumaLOG 300 UNITS/3 ML VIAL SC PRN (17:25)
[2018-09-28] MEDS: HumaLOG 300 UNITS/3 ML VIAL SC SCH (17:25)
--- NOTE | 2018-09-28 18:47 | PDOC.HOSPP ---
- Subjective Subjective: Patient seen and examined. Sitting up in chair. Back from initial portion of stress test. No longer experiencing chest pain or sweating. Patient only has these symptoms when he is out in the heat. Patient pleasant and in good spirits. - Objective Vital Signs & Weight: Vital Signs (12 hours) Temp Pulse Resp BP BP Pulse Ox 09/28/18 16:40 97.5 F L 69 20 148/72 H 94 L 09/28/18 07:27 66 18 105/55 L 93 L Weight Weight 254 lb I&O: 09/27/18 09/28/18 09/29/18 06:59 06:59 06:59 Intake Total 500 Balance 500 Result Diagrams: 09/28/18 00:16 09/28/18 00:16 Additional Labs: Accuchecks 09/28/18 16:45 POC Glucose 186 H ROS - Medication Medications: Active Medications Generic Name Dose Route Start Last Admin Trade Name Freq PRN Reason Stop Dose Admin Aspirin 325 mg 09/28/18 09:00 09/28/18 09:00 Ecotrin PO Not Given DAILY HUMAIRA Gabapentin 300 mg 09/28/18 17:00 09/28/18 17:24 Neurontin PO 300 mg QID HUMAIRA Administration Insulin Human Lispro 0 units 09/28/18 04:58 09/28/18 17:25 Humalog SC 2 unit .MILD SLIDING SCALE PRN Administration Mild Correctional Scale Insulin Human Lispro 10 units 09/28/18 17:00 09/28/18 17:25 Humalog SC 10 unit AC HUMAIRA Administration Sodium Chloride 10 ml 09/28/18 09:00 09/28/18 09:00 Flush - Normal Saline IVF 09/28/18 20:15 Not Given Q12HR [facility] Tramadol HCl 50 mg 09/28/18 15:21 09/28/18 17:28 Ultram PO 50 mg BID PRN Administration Pain - Exam NAD, awake alert Eye: PERRL, anicteric sclera ENT: moist mucosa Neck: supple Heart: RRR, no murmur, no gallops Respiratory: CTAB, no wheezes, no rales, no ronchi Gastrointestinal: soft, non-tender, non-distended, normal bowel sounds Gastrointestinal - other findings: Obese Extremities: 1+ LE edema Skin: no rashes Neurological: CN's grossly intact, no weakness, no focal deficits, no new deficit Musculoskeletal: normal strength Psychiatric: normal affect, normal behavior, A&O x 3 Hosp A/P - Plan Plan: Stress test, if negative will plan for D/c if continues to clinically improve DYLAN therapy as needed Long and short acting insulin for glucose control, hypoglycemia protocol Continue home mediations as able Patient with large volume for free water ingestion resulting in hyponatremia, which is likely chronic for him Recommend consuming some isotonic solutions such as Gatorade or pedialyte DVT PPX
[2018-09-28] MEDS: Famotidine 20 MG TAB PO SCH (20:42)
[2018-09-28] MEDS: busPIRone HCl 10 MG TAB PO SCH (20:43)
[2018-09-28] MEDS: Docusate 100 MG CAP PO SCH (20:44)
[2018-09-28] MEDS: Insulin Glargine 50 UNITS in Pre-Filled Syringe SC SCH (20:53)
[2018-09-28] MEDS ORDERED: Benztropine 1 MG TAB PO SCH (21:00)
[2018-09-28] MEDS ORDERED: Simvastatin 20 MG TAB PO SCH (21:00)
[2018-09-28] MEDS ORDERED: traZODone HCl 50 MG TAB PO SCH (21:00)
[2018-09-28] MEDS ORDERED: Non-Formulary Item 1 EACH (Insulin Detemir 100 Units/Ml [Levemir] 50 UNIT) SQ SCH (21:00)
[2018-09-28] MEDS ORDERED: Haloperidol 5 MG TAB PO SCH (21:00)
[2018-09-29] MEDS: HumaLOG 300 UNITS/3 ML VIAL SC PRN ×2 (05:12→12:05)
[2018-09-29] MEDS ORDERED: Levothyroxine Sodium 88 MCG TAB PO SCH (06:00)
[2018-09-29] MEDS: Insulin Glargine 50 UNITS in Pre-Filled Syringe SC SCH (08:35)
[2018-09-29] MEDS: HumaLOG 300 UNITS/3 ML VIAL SC SCH ×2 (08:35→12:05)
[2018-09-29] MEDS: Docusate 100 MG CAP PO SCH (08:36)
[2018-09-29] MEDS: Famotidine 20 MG TAB PO SCH (08:36)
[2018-09-29] MEDS: Gabapentin 300 MG CAP PO SCH ×2 (08:36→12:06)
[2018-09-29] MEDS: busPIRone HCl 10 MG TAB PO SCH (08:36)
[2018-09-29] MEDS ORDERED: Multivit, Therapeutic 1 TAB PO SCH (09:00)
[2018-09-29] MEDS ORDERED: Lisinopril 20 MG TAB PO SCH (09:00)
[2018-09-29] MEDS ORDERED: Cyanocobalamin (Vitamin B-12) 1,000 MCG TAB PO SCH (09:00)
[2018-09-29] MEDS ORDERED: Aspirin Chewable 81 MG TAB PO SCH (09:00)
--- NOTE | 2018-09-29 09:08 | NM ---
EXAM: CARDIAC SPECT HISTORY: Chest pain TECHNIQUE: A myocardial perfusion scan was performed using the single isotope 2 day protocol with diandra hnetium 99m sestamibi. [30 mCi] was injected intravenously for the rest exam followed by 30 mCi for the stress study. Pharmacologic stress with adenosine was monitored and interpreted by Dr. Lacy FINDINGS: Homogeneous tracer distribution is seen in the myocardial segments on stress and rest image s without fixed or reversible defects. Gated SPECT LVEF: 66% Wall motion exam: Normal IMPRESSION: Normal myocardial perfusion scan
[2018-09-29 11:57] VITALS: TEMP 97.6
[2018-09-29 12:00] VITALS: BP 107/59
--- NOTE | 2018-09-30 03:58 | DIS ---
DATE OF ADMISSION: 09/28/2018 DATE OF DISCHARGE: 09/29/2018 FINAL DIAGNOSES: 1. Chest pain. Acute coronary syndrome was ruled out with troponin levels, electrocardiogram, and stress test. 2. Diabetes mellitus type 2. 3. Hypertension. 4. Chronic obstructive pulmonary disease, chronic. 5. Chronic hepatitis C. 6. Obstructive sleep apnea, on CPAP at home. 7. Peripheral neuropathy. 8. Gastroesophageal reflux disease. 9. Hyperlipidemia. 10. Morbid obesity. 11. Hypothyroidism. 12. Anxiety with depression. 13. Schizoaffective disorder. 14. History of psychogenic polydipsia with hyponatremia. HOSPITAL COURSE: The patient was a 58-year-old male, who was admitted to the hospital with complaints of chest pain, mainly located in the center, associated with some diaphoresis, lightheadedness, nausea, and shortness of breath. Apparently, he has obstructive sleep apnea and uses CPAP at home at night. In the emergency room, he was evaluated and was found to have normal CBC, normal chemistry except for sodium which was 130 and glucose 152. The rest of chemistry was within normal limits. Chest x-ray showed normal findings. EKG showed normal sinus rhythm with 65 beats per minute without ST or T-wave changes. The patient got admitted to the observation unit. He underwent a radionucleotide stress test, which came back with LVEF of 66% and normal wall motion exam and final impression of normal myocardial perfusion scan. The patient is doing well. He does not have chest pain anymore. PHYSICAL EXAMINATION: VITAL SIGNS: Blood pressure is 105/55, pulse is 64, respirations 16, O2 saturation 92% on room air, temperature 97.5. LUNGS: Clear. HEART: S1, S2 normal. No S3. No S4. No any murmur. ABDOMEN: Soft, obese, nontender. EXTREMITIES: No clubbing, cyanosis, or edema. NEUROLOGICAL: He follows my commands. He moves his all 4 extremities. DISCHARGE INSTRUCTIONS: He is discharged home in good condition with recommendation to follow up with his primary care physician in 1 week. ACTIVITIES: As tolerated. DIET: 2000 calories ADA. MEDICATIONS: We are going to replace his H2 diogo with PPI, Protonix 20 mg once a day for possible etiology of his chest pain secondary to GERD. Otherwise, he will continue his home medications, which are: 1. Aspirin 81 mg once a day. 2. Cogentin 2 mg at bedtime. 3. BuSpar 5 mg 3 times a day. 4. Vitamin D3 of 1000 units once a day. 5. Vitamin B12 1000 mcg once a day. 6. Colace 100 mg twice a day. 7. Gabapentin 300 mg 4 times a day. 8. Haldol 5 mg at bedtime. 9. Humalog 10 units before each meal. 10. Levothyroxine 88 mcg once a day. 11. Hydroxyzine 50 mg q.i.d. 12. Lisinopril 20 mg once a day. 13. Melatonin 2 mg at bedtime. 14. . 15. Multivitamin once a day. 16. Zoloft 100 mg twice a day. 17. Zocor 40 mg at bedtime. 18. Tramadol 50 mg twice a day. 19. Metformin 500 mg tablets 2000 mg daily and as I mentioned above, pantoprazole 20 mg once a day. Also, he will continue his 50 units of detemir insulin long-acting twice a day subcutaneously. DISCHARGE CONDITION AND DISPOSITION: He is in good condition, discharged home. TIME SPENT: Discharge time spent is less than 30 minutes. Job ID: [id number]
--- NOTE | 2018-10-03 10:09 | EKG ---
Test Reason : Blood Pressure : / mmHG Vent. Rate : 065 BPM Atrial Rate : 065 BPM P-R Int : 160 ms QRS Dur : 094 ms QT Int : 416 ms P-R-T Axes : 050 021 041 degrees QTc Int : 432 ms Normal sinus rhythm Low voltage QRS Borderline ECG Confirmed by SELENA MARROQUIN, ERIK ([id number]), purchase request editor ISIDORO ROSE ([id number]) on 10/03/2018 10:08:47 AM Referred By: Confirmed By:ERIK WALTERS MD
== END 2018-09-29 13:25 | disposition home or self-care (01) ==
LOC: ERS 00:02 → ERHOLD 01:39 → 2SW 07:28
PROVIDERS: ADMIT Internal Medicine; ATTEND Internal Medicine
DX: R07.2 Precordial pain (principal); E11.42 Type 2 diabetes mellitus with diabetic polyneuropathy; I10 Essential (primary) hypertension; J44.9 Chronic obstructive pulmonary disease, unspecified; B18.2 Chronic viral hepatitis C; G47.33 Obstructive sleep apnea (adult) (pediatric); K21.9 Gastro-esophageal reflux disease without esophagitis; E78.5 Hyperlipidemia, unspecified; E66.01 Morbid (severe) obesity due to excess calories; E03.9 Hypothyroidism, unspecified; F41.8 Other specified anxiety disorders; F25.9 Schizoaffective disorder, unspecified; E87.1 Hypo-osmolality and hyponatremia; F17.290 Nicotine dependence, other tobacco product, uncomplicated; Z98.890 Other specified postprocedural states; Z68.41 Body mass index [BMI] 40.0-44.9, adult; Z99.89 Dependence on other enabling machines and devices; Z79.82 Long term (current) use of aspirin; Z79.4 Long term (current) use of insulin; Z79.899 Other long term (current) drug therapy
CPT/HCPCS: 71045; 78452; 80053; 82962 ×2; 83880; 84484 ×2; 85025; 93005; 93017; 96360; 99285; 99406; A9500; G0378 ×3; 36415; 36416; J1815; J2785

== ENCOUNTER 2018-12-20 10:05 | Emergency (ER) | payer MEDICARE ==
--- NOTE | 2018-12-20 11:54 | RAD ---
XR Cerv Sp Ap Lat STANDARD History: Pain Comparison: None. Findings: Open-mouth odontoid view is normal. No acute fracture or malalignment of the upper cervical spine. The lower cervical spine evaluation is limited due to the shadows from the overlying shoulders. Impression: Mild spondylosis. No acute fracture.
== END 2018-12-20 12:51 | disposition home or self-care (01) ==
LOC: ERS 10:05
DX: M54.2 Cervicalgia (principal); J44.9 Chronic obstructive pulmonary disease, unspecified; E11.40 Type 2 diabetes mellitus with diabetic neuropathy, unspecified; I10 Essential (primary) hypertension; F17.220 Nicotine dependence, chewing tobacco, uncomplicated
CPT/HCPCS: 72040

== ENCOUNTER 2019-02-02 19:18 | Inpatient (IN) | payer MEDICARE ==
[~2019-02-02 19:18] MED LIST: Iopamidol-370 76% 500 ML 1 ML ONE
[2019-02-02] MEDS ORDERED: Morphine 4 MG/ML VIAL ONE ×2 (21:24→23:14)
[2019-02-02 21:39] LABS: #Basophils 0.1 thou/uL (0.0-0.2); #Eosinphils 0.1 thou/uL (0.0-0.7); #Lymphocytes 2.5 thou/uL (1.20-3.40); #Monocytes 0.7 thou/uL (0.11-0.59); #Neutrophils 5.7 thou/uL (1.40-6.50); %Basophils 0.7 % (0.0-1.0); %Eosinophils 1.1 % (0.0-10.0); %Lymphocytes 27.3 % (21.0-51.0); %Monocytes 7.8 % (0.0-10.0); Hemoglobin 14.6 g/dL (14.0-18.0); Mean Corpuscular HGB CONC 34.1 g/dL (32.0-36.0); Mean Corpuscular Hemoglobin 29.1 pg (27.0-31.0); Mean Corpuscular Volume 85.4 fL (78.0-98.0); Mean Platelet Volume 8.8 fL (7.4-10.4); Platelet Count 149 thou/uL (130-400); RBC Distribution Width 11.8 % (11.5-14.5); Red Blood Cell (RBC) Count 5.02 mill/uL (4.70-6.10)
--- NOTE | 2019-02-02 21:39 | RAD ---
PORTABLE CHEST: 02/02/19 INDICATIONS: Chest pain. COMPARISON: 09/28/18. Evidence of patchy infiltrate and/or atelectasis in the left lung base. Lung neville otherwise clear. Vascular markings normal. Heart size within normal range. IMPRESSION: Question patchy atelectasis and/or infiltrate in the left lung base. POS: OFF
[2019-02-02 21:58] LABS: ALT (SGPT) 22 U/L (8-55); AST (SGOT) 20 U/L (5-34); Albumin 4.2 g/dL (3.5-5.0); Alkaline Phosphatase 62 U/L (40-110); BUN (Urea Nitrogen) 9 mg/dL (8.4-25.7); Bilirubin, Total 1.5 mg/dL (0.2-1.2); CK (CPK) 167 U/L (30-200); Calc. Creatinine Clearance 0 mL/min (70-130); Calcium 9.2 mg/dL (7.8-10.44); Carbon Dioxide 24 mmol/L (22-29); Chloride 88 mmol/L (98-107); Estimated GFR-MDRD Greater than 90; Globulin 2.3 g/dL (2.4-3.5); Glucose 202 mg/dL (70-105); Lipase 19 U/L (8-78); Potassium 4.3 mmol/L (3.5-5.1); Protein, Total 6.5 g/dL (6.0-8.3); Sodium 121 mmol/L (136-145)
[2019-02-02 22:02] LABS: Anion Gap 13 mmol/L (10-20)
--- NOTE | 2019-02-02 22:33 | CT ---
CTA AORTOGRAM CHEST AND ABDOMEN WITH IV CONTRAST: 02/02/19 Axial tomograms obtained with multiplanar reconstruction and 3D postprocessing following aortogram pr otocol. INDICATION: Chest pain. Assess for aortic dissection. FINDINGS: Thoracic aorta shows no evidence of aneurysm or dissection. Abdominal aorta shows no evidence of aneurysm or dissection. Abdominal aortic branches including melvin ac artery, superior mesenteric artery, and renal arteries unremarkable. The aortic bifurcation unrem arkable. Lung bases clear. The pulmonary arteries are well opacified. There is no evidence of proximal pulmonary embolus. The liver, spleen and pancreas unremarkable. Kidneys unremarkable. Bowel loops unremarkable. IMPRESSION: 1. No evidence of thoracic or abdominal aortic dissection or aneurysm. 2. No acute process identified. POS: OFF
[2019-02-02] MEDS ORDERED: Nitroglycerin 2% Ointment 1 INCH/1 GM Packet ONE (23:14)
[2019-02-02] MEDS ORDERED: Aspirin Chewable 81 MG TAB ONE (23:14)
[2019-02-03] MEDS ORDERED: Sodium Chloride 0.9% 1,000 ML IV SCH (01:15)
[2019-02-03 01:17] LABS: Troponin I Less than 0.010 ng/mL (< 0.028)
--- NOTE | 2019-02-03 02:16 | HP ---
TIME OF ASSESSMENT: 0100 PRIMARY CARE PHYSICIAN: [facility]. CHIEF COMPLAINT: Chest pain. HISTORY OF PRESENT ILLNESS: Mr. Curry is a 58-year-old gentleman who presents with complaints of substernal chest pain. The patient states he was home and leaned over to pick something up off the floor when he began to feel lightheaded. He then experienced substernal chest pain that he states began in the epigastric region. He states he had some discomfort in his back as well. The patient states he has issues with chronic back pain and spasms, which he feels he may have triggered somehow. He states the substernal/epigastric discomfort has been going on for few days and has been intermittent. Today, it lasted longer than normal. He was initially given 4 mg of morphine as well as 324 mg of aspirin. The patient states the pain did not resolve fully until he was given the second dose of morphine and Nitro-Bid. He suspects the pain was exacerbated by his blood pressure as he states he forgot to take his usual medications today. The patient states he follows regularly with a talent advisor and recently underwent a stress test and echo, which was unremarkable. He had this done at the [facility] in [place], [place]. REVIEW OF SYSTEMS: At this present time, he denies having any pain. Does report having a chronic cough which is nonproductive. Denies any recent fevers. Denies any nausea or vomiting. He has not had any changes with his stools. No urinary symptoms. All other review of systems are negative. ALLERGIES: NO KNOWN DRUG ALLERGIES. CURRENT MEDICATIONS: 1. Zantac. 2. Vitamin B12. 3. Tylenol. 4. Trazodone. 5. Tramadol. 6. Simvastatin. 7. Sertraline. 8. Ranitidine. 9. NovoLog. 10. Methocarbamol. 11. Metformin. 12. Melatonin. 13. Lisinopril. 14. Levothyroxine. 15. Levemir. 16. Humalog. 17. Gabapentin. 18. Flomax. 19. Buspirone. 20. BuSpar. 21. Benztropine. 22. Aspirin. 23. Cipro. 24. Docusate sodium. 25. Flexeril. 26. Haldol. 27. Zoloft. 28. Cogentin. 29. Tylenol with codeine #3. 30. Zofran. PAST MEDICAL HISTORY: 1. COPD. 2. Peripheral neuropathy. 3. Sleep apnea. 4. Hepatitis C. 5. Type 2 diabetes mellitus. 6. Hypothyroidism. 7. Hyperlipidemia. 8. Hypertension. 9. Obesity. 10. Restless legs syndrome. 11. Bipolar. 12. Schizoaffective disorder. PAST SURGICAL HISTORY: 1. Left elbow surgery. 2. Spinal surgery. 3. Skin cancer removed from right lip. 4. Bilateral carpal tunnel repair. 5. Hernia repair. SOCIAL HISTORY: The patient reports chewing tobacco. Denies any alcohol use or illicit drug use. He does not smoke cigarettes. PHYSICAL EXAMINATION: GENERAL: The patient appears well developed, well nourished, in no acute distress. VITAL SIGNS: Blood pressure 135/77, respirations 16, O2 saturation 99% on room air, temp 98 degrees. HEENT: Normocephalic and atraumatic. Pupils are equal, round, and reactive to light. Sclerae without icterus. He is frequently blinking and states it is due to chronic dry eyes. States he also has a "lazy left eye." Oropharynx is clear. NECK: Supple. LUNGS: Clear to auscultation bilaterally without any wheezes, rales, or rhonchi. CARDIAC: Regular rate and rhythm. ABDOMEN: Soft, obese, nontender, nondistended. Normoactive bowel sounds present. No guarding or rigidity. Negative Dupont's sign. No renal angle tenderness. EXTREMITIES: No lower leg swelling or edema. NEUROLOGIC: Alert and oriented x3. SKIN: Without rash or jaundice. INVESTIGATIONS: As mentioned above in HPI. IMPRESSION AND PLAN: Mr. Curry is a 58-year-old gentleman who presents with complaints of epigastric/substernal chest pain, who is being admitted for management of the following. 1. Acute coronary syndrome rule out. EKG done in the emergency department showed sinus bradycardia with a heart rate of 57. Of note, his heart rate has been fluctuating between 50s to 120 range. The patient states he has no known history of arrhythmias and does not have a pacemaker. A consult to Cardiology has been placed. I have added a magnesium and BNP to his labs. We will continue to trend troponins. We will also obtain recent echo and stress test, which he states he has had almost done a year ago. The patient given aspirin in the emergency department. 2. Hypertension. Monitor blood pressure. Resume home medications once verified. 3. Hyperlipidemia. Resume home medications once verified. Lipid panel added to the morning labs. 4. Diabetes mellitus. Resume home medications once verified, but we will hold metformin. Monitor blood glucose and initiate insulin sliding scale. 5. Hypothyroidism. We will check TSH. Resume home medication once verified. 6. Elevated bilirubin. The patient with a bilirubin of 1.5. He apparently did have some epigastric discomfort. We will obtain a gallbladder ultrasound and repeat LFTs with morning labs. 7. Hyponatremia. Na+ 121. Will hold Zoloft and lisinopril, as per Dr. Jacob. 8. Deep venous thrombosis prophylaxis with mechanical SCDs. 9. Code status is full. Surrogate decision maker is his , Isa Curry. The patient's case was discussed with attending who agrees with plan of care as described above. Job ID: [id number] MTDD
[2019-02-03] MEDS ORDERED: Insulin Regular 300 UNITS/3 ML VIAL SC PRN (02:38)
[2019-02-03] MEDS ORDERED: Dextrose 50% Abboject 50 ML SYRINGE SLOW IVP PRN (02:38)
[2019-02-03] MEDS ORDERED: Dextrose 5% in Water 1,000 ML IV PRN (02:38)
[2019-02-03] MEDS ORDERED: Lorazepam 2 MG/ML VIAL SLOW IVP PRN (02:44)
[2019-02-03] MEDS ORDERED: Lorazepam 2 MG/ML VIAL ONE (02:46)
[2019-02-03 02:50] LABS: #Basophils 0.1 thou/uL (0.0-0.2); #Eosinphils 0.1 thou/uL (0.0-0.7); #Lymphocytes 2.4 thou/uL (1.20-3.40); #Monocytes 0.6 thou/uL (0.11-0.59); #Neutrophils 4.6 thou/uL (1.40-6.50); %Basophils 0.8 % (0.0-1.0); %Eosinophils 1.8 % (0.0-10.0); %Lymphocytes 30.6 % (21.0-51.0); %Monocytes 7.9 % (0.0-10.0); Hemoglobin 14.7 g/dL (14.0-18.0); Mean Corpuscular HGB CONC 35.1 g/dL (32.0-36.0); Mean Corpuscular Volume 85.6 fL (78.0-98.0); Mean Platelet Volume 7.9 fL (7.4-10.4); Platelet Count 144 thou/uL (130-400); RBC Distribution Width 11.9 % (11.5-14.5); Red Blood Cell (RBC) Count 4.91 mill/uL (4.70-6.10); White Blood Cell (WBC) Count 7.9 thou/uL (4.8-10.8)
[2019-02-03] MEDS ORDERED: Magnesium Sulfate 2 GM in Sodium Chloride 0.9% 250 ML 250 ML IVPB SCH (03:00)
[2019-02-03 03:56] LABS: ALT (SGPT) 21 U/L (8-55); AST (SGOT) 19 U/L (5-34); Albumin 4.3 g/dL (3.5-5.0); Alkaline Phosphatase 58 U/L (40-110); Anion Gap 10 mmol/L (10-20); BUN (Urea Nitrogen) 8 mg/dL (8.4-25.7); Bilirubin, Total 1.5 mg/dL (0.2-1.2); Calc. Creatinine Clearance 0 mL/min (70-130); Calcium 9.1 mg/dL (7.8-10.44); Carbon Dioxide 28 mmol/L (22-29); Cardiac Risk 2.6 (Less than 4.5); Chloride 94 mmol/L (98-107); Cholesterol 117 mg/dl (< 200 Desired); Estimated GFR-MDRD Greater than 90; Globulin 2.3 g/dL (2.4-3.5); Glucose 218 mg/dL (70-105); HDL Cholesterol 45 mg/dL (>60 Neg Risk); LDL Cholesterol, Calculated 49 mg/dL; Potassium 4.2 mmol/L (3.5-5.1); Protein, Total 6.6 g/dL (6.0-8.3); Sodium 128 mmol/L (136-145); Triglycerides 116 mg/dL (Less than 150)
[2019-02-03 04:03] LABS: Troponin I Less than 0.010 ng/mL (< 0.028)
[2019-02-03] MEDS: Levothyroxine Sodium 88 MCG TAB PO SCH (06:39)
[2019-02-03] MEDS ORDERED: Famotidine/PF 20 mg/2ml Vial SLOW IVP SCH (09:00)
[2019-02-03] MEDS ORDERED: Non-Formulary Item 1 EACH (Insulin Detemir 100 Units/Ml [Levemir] 50 UNIT) SQ SCH (09:00)
[2019-02-03] MEDS ORDERED: metFORMIN XR 500 MG TAB PO SCH (09:00)
[2019-02-03] MEDS: Insulin Glargine 50 UNITS in Pre-Filled Syringe 1 EACH SC SCH ×2 (09:47→21:49)
[2019-02-03] MEDS: Aspirin Chewable 81 MG TAB PO SCH (09:49)
[2019-02-03] MEDS: busPIRone HCl 10 MG TAB PO SCH ×3 (09:49→21:46)
[2019-02-03] MEDS: Lisinopril 20 MG TAB PO SCH (09:49)
[2019-02-03] MEDS: Gabapentin 300 MG CAP PO SCH ×3 (09:50→14:23)
--- NOTE | 2019-02-03 10:40 | ULT ---
ULTRASOUND ABDOMEN LIMITED: (RIGHT UPPER QUADRANT) DATE: 02/03/2019 HISTORY: 58-year-old male with epigastric pain and elevated bilirubin. FINDINGS: Gallbladder:Normal degree of distention. No mural thickening. No sonographic Dupont's sign. At least one 9 x 4 mm gallstone, mobile. No pericholecystic fluid. Common duct: 4 mm. Liver:Diffusely increased echogenicity consistent with fatty liver. Pancreas:Nonspecific sonographic appearance. Right kidney:No hydronephrosis. IMPRESSION: 1. Cholelithiasis without sonographic evidence of acute cholecystitis. 2. Hepatic steatosis.
[2019-02-03 11:53] LABS: Anion Gap 11 mmol/L (10-20); BUN (Urea Nitrogen) 8 mg/dL (8.4-25.7); Calc. Creatinine Clearance 0 mL/min (70-130); Calcium 8.9 mg/dL (7.8-10.44); Carbon Dioxide 27 mmol/L (22-29); Chloride 101 mmol/L (98-107); Estimated GFR-MDRD Greater than 90; Glucose 192 mg/dL (70-105); Potassium 4.6 mmol/L (3.5-5.1); Sodium 134 mmol/L (136-145)
[2019-02-03] MEDS ORDERED: Dextrose 5% in Water 1,000 ML IV SCH (12:45)
--- NOTE | 2019-02-03 14:19 | PDOC.HOSPP ---
- Subjective Encounter Date: 02/03/19 Encounter Time: 14:18 Subjective: Patient seen and examined for CP/Gen weakness. No CP. Feeling better overall. No new complaints. No overnight events - Objective Vital Signs & Weight: Vital Signs (12 hours) Temp Pulse Resp BP BP BP Pulse Ox 02/03/19 10:20 98.2 F 76 20 122/69 116/67 138/79 97 Result Diagrams: 02/03/19 02:42 02/03/19 11:24 Additional Labs: Accuchecks 02/03/19 10:21 POC Glucose 204 H EKG Reviewed by me: Yes (Tele SR) Hospitalist ROS - Review of Systems Respiratory: denies: cough, dry, shortness of breath, hemoptysis, SOB with excertion, pleuritic pain, sputum, wheezing, other Cardiovascular: denies: chest pain, palpitations, orthopnea, paroxysmal noc. dyspnea, edema, light headedness, other - Medication Medications: Active Medications Generic Name Dose Route Start Last Admin Trade Name Freq PRN Reason Stop Dose Admin Aspirin 81 mg 02/03/19 09:00 02/03/19 09:49 Aspirin Chewable PO 81 mg DAILY HUMAIRA Administration Buspirone HCl 5 mg 02/03/19 09:00 02/03/19 09:49 Buspar PO 5 mg TID HUMAIRA Administration Gabapentin 300 mg 02/03/19 09:00 02/03/19 14:08 Neurontin PO 300 mg QID HUMAIRA Administration Insulin Glargine 50 units/ 0.5 mls @ 0 mls/hr 02/03/19 09:00 02/03/19 09:47 Miscellaneous Medication SC Not Given BID HUMAIRA Dextrose/Water 1,000 mls @ 50 mls/hr 02/03/19 12:45 02/03/19 12:45 D5w IV 1,000 mls .Q20H HUMAIRA Administration Levothyroxine Sodium 88 mcg 02/03/19 06:00 02/03/19 06:39 Synthroid PO 88 mcg 0600 HUMAIRA Administration Lisinopril 20 mg 02/03/19 09:00 02/03/19 09:49 Zestril PO 20 mg DAILY HUMAIRA Administration Lorazepam 1 mg 02/03/19 02:44 02/03/19 03:08 Ativan SLOW IVP 1 mg Q4H PRN Administration Anxiety/Agitation Pantoprazole Sodium 20 mg 02/03/19 09:00 02/03/19 09:49 Protonix PO 20 mg DAILY HUMAIRA Administration - Exam General Appearance: NAD Neck: supple, no JVD Heart: RRR, no gallops, no rubs, normal peripheral pulses Respiratory: CTAB, no wheezes, no rales, no ronchi Gastrointestinal: soft, non-tender, non-distended, normal bowel sounds Extremities: no edema Neurological: no weakness, no new deficit Psychiatric: normal affect, A&O x 3 Hosp A/P - Plan DVT proph w/SCDs CP Acute on chronic hyponatremia DM2 HTN HLD Chronic pain syndrome Cholelithiases Hypomagnesemia PLAN: IV NS dced On D5W Monitor Sodium closely AM labs Cont Lantus with sliding scale Zoloft on hold [facility]wait [facility] Cardio/Nephro input appreciated
[2019-02-03 14:37] VITALS: BMI 40.1
--- NOTE | 2019-02-03 14:51 | CON ---
DATE OF CONSULTATION: 02/03/2019 REASON FOR CONSULTATION: Hyponatremia. TIME OF CONSULT: 9:30 a.m. HISTORY OF PRESENTING ILLNESS: This is a very pleasant 58-year-old gentleman, who presented to the hospital yesterday for chest pain. The patient was noted to have a sodium of 121 at 8:20 p.m. on February 02, which increased to 128 at 2:40 a.m. on February 03 and 134 at 11:20 when I saw the patient. The patient denies no headache, numbness, tingling, or weakness. Denies any nausea, vomiting, or chest pain. PAST MEDICAL HISTORY: Significant for hypertension, GERD, COPD, hepatitis C, diabetes mellitus, hypothyroidism, hyperlipidemia, obesity, restless legs, bipolar disorder, schizoaffective disorder, left elbow surgery, spinal surgery, skin cancer, carpal tunnel, and hernia surgery. SOCIAL AND FAMILY HISTORY: Drinks excessive fluid. ALLERGIES: REVIEWED. HOME MEDICATION: List reviewed. HOSPITAL MEDICATION: List reviewed. REVIEW OF SYSTEMS: 15-point review of system was performed, negative except for positives noted above. GENERAL: HEAD: NECK: No swelling or lumps. NOSE: No epistaxis or discharge. EYES: No diplopia or pain. RESPIRATORY: CARDIOVASCULAR: GASTROINTESTINAL: /RECYCLING SPECIALIST: MUSCULOSKELETAL: No joint pain. NEUROPSYCHIATRIC SYSTEMS: No suicidal ideation. No ideation. SKIN: Denies any rash or ulcer. CONSTITUTIONAL: No fever or chills. PHYSICAL EXAMINATION: GENERAL: The patient is awake and alert. VITAL SIGNS: Pulse 75, breathing 16, and blood pressure 116/67. GENERAL APPEARANCE AND MENTAL STATUS: Fair. HEAD/NECK: Normocephalic. Atraumatic. EYES: EOMI. No deformity. EARS: Clear. No ulcers. NOSE: Intact. No lesions. MOUTH: Clear. No discharge. THROAT: Clear. No exudate. LUNGS: Clear. No crackles. CARDIAC: S1, S2. No rub. ABDOMEN: Benign. Bowel sounds positive. GENITALIA/RECTUM: Barrera absent. BACK/EXTREMITIES: Edema 0+. NEUROLOGICAL: Alert and motor intact. SKIN: LYMPHATICS: LABORATORY DATA: Labs show sodium 134. No serum osmolality or urine osmolality has been ordered. Labs are unavailable. Last sodium in September was 136. ASSESSMENT AND RECOMMEDATIONS: 1. Hyponatremia, most likely because of excessive fluid intake, acute versus chronic in the setting of hypothyroidism and multiple medications that can cause hypothyroidism. I would stop the normal saline stat, order was given to the nurse and start the patient on D5W, so I will lower the sodium back to 128. 2. Hypothyroidism. Recommend increasing dose of Synthroid. 3. Anemia, stable. 4. Chronic kidney disease, stage 3, stable. Noncompliance is a major issue. All the above findings were discussed with Dr. Fox as the primary physician earlier this morning. Job ID: [id number]
[2019-02-03 15:11] LABS: Anion Gap 9 mmol/L (10-20); BUN (Urea Nitrogen) 7 mg/dL (8.4-25.7); Calc. Creatinine Clearance 167 mL/min (70-130); Calcium 8.8 mg/dL (7.8-10.44); Carbon Dioxide 29 mmol/L (22-29); Chloride 101 mmol/L (98-107); Estimated GFR-MDRD Greater than 90; Glucose 177 mg/dL (70-105); Potassium 4.5 mmol/L (3.5-5.1); Sodium 134 mmol/L (136-145)
--- NOTE | 2019-02-03 16:01 | CON ---
DATE OF CONSULTATION: 02/03/2019 REASON FOR CONSULTATION: Chest pain. HISTORY OF PRESENT ILLNESS: Mr. Curry is a very pleasant 58-year-old white gentleman, who comes to the hospital for chest pain. He sees a pantograph machine set up operator regularly at the [facility]. He states that about 6 months ago, he underwent heart catheterization and was told that all his arteries are wide open. He remembers this being done through the right radial approach at the [facility] facility. He has had several negative stress test in the past as well. Currently, he is pain free. He also has hyponatremia, which is being evaluated by Nephrology. PAST MEDICAL HISTORY: 1. Chronic obstructive pulmonary disease. 2. Peripheral neuropathy. 3. Sleep apnea. 4. Hepatitis C. 5. Type 2 diabetes. 6. Hypothyroidism. 7. Hyperlipidemia. 8. Hypertension. 9. Obesity. 10. Restless legs syndrome. 11. Bipolar disorder. 12. Schizoaffective disorder. MEDICATIONS: Outpatient medications were reviewed. 1. Trazodone. 2. Tramadol. 3. Metformin. 4. Hydroxyzine. 5. BuSpar. 6. Simvastatin. 7. Sertraline. 8. Pantoprazole. 9. Multivitamin. 10. Methocarbamol. 11. Melatonin. 12. Lisinopril. 13. Levothyroxine. 14. Insulin Levemir. 15. Humalog. 16. Haldol. 17. Gabapentin. 18. Docusate. 19. Vitamin B12. 20. Vitamin D3. 21. Cogentin. 22. Aspirin. SURGICAL HISTORY: 1. Left elbow surgery. 2. Spinal surgery. 3. Skin cancer removal. 4. Bilateral carpal tunnel repair. 5. Hernia repair. 6. Recent heart catheterization 6 months ago at [facility]. SOCIAL HISTORY: Chews tobacco. No alcohol or drug use. REVIEW OF SYSTEMS: A 12-point review of systems was done and was all negative unless stated in the history of present illness. ALLERGIES: NO KNOWN DRUG ALLERGIES. PHYSICAL EXAMINATION: VITAL SIGNS: Temperature 98.2, pulse 76, respiratory rate 20, saturating 97% on room air, blood pressure 122/69. GENERAL: Awake, alert, and oriented x3, in no distress. HEENT: Normocephalic and atraumatic. NECK: Supple. LUNGS: Reduced breath sounds bilaterally. CARDIOVASCULAR: S1 and S2. No S3 or S4. No murmurs. ABDOMEN: Soft. Positive bowel sounds. EXTREMITIES: No edema. SKIN: Warm and dry. LABORATORY DATA: Laboratory work was reviewed. CBC is unremarkable. Chemistries were unremarkable except for a sodium initially at 121 now up to 134. TSH was low. Troponin was undetectable x2. BNP was 27. Triglycerides of 116, total cholesterol 117, LDL of 49, HDL of 45. ASSESSMENT/PLAN: 1. Chest pain, most likely noncardiac. He has had workup in the past with negative stress and then more recently a heart catheterization apparently 6 months ago that was negative as well for coronary artery disease. Since he is not having any positive troponins, it is unlikely to be an acute coronary syndrome and his chest pain is probably noncardiac. We will get records from the [facility] to confirm. 2. From the cardiac perspective, he will be discharged home at any time. Followup with his [facility] pantograph machine set up operator. Thank you for letting us participate in the care of your patient. Job ID: [id number]
[2019-02-03 17:26] LABS: Anion Gap 11 mmol/L (10-20); Carbon Dioxide 27 mmol/L (22-29); Chloride 100 mmol/L (98-107); Potassium 4.2 mmol/L (3.5-5.1); Sodium 134 mmol/L (136-145)
[2019-02-03 17:27] LABS: BUN (Urea Nitrogen) 8 mg/dL (8.4-25.7); Calc. Creatinine Clearance 154 mL/min (70-130); Calcium 8.6 mg/dL (7.8-10.44); Estimated GFR-MDRD Greater than 90; Glucose 242 mg/dL (70-105)
[2019-02-03] MEDS: Insulin Regular 300 UNITS/3 ML VIAL SC PRN (17:54)
[2019-02-03] MEDS: Acetaminophen 325 MG TAB PO PRN (18:55)
[2019-02-03] MEDS: Cyclobenzaprine 10 MG TAB PO PRN (18:55)
[2019-02-03] MEDS ORDERED: Gabapentin 300 MG CAP PO SCH (21:00)
[2019-02-03] MEDS ORDERED: Atorvastatin Calcium 10 MG TAB PO SCH (21:00)
[2019-02-03] MEDS ORDERED: Benztropine 1 MG TAB PO SCH (21:00)
[2019-02-03] MEDS ORDERED: Haloperidol 5 MG TAB PO SCH (21:00)
[2019-02-03] MEDS ORDERED: Simvastatin 20 MG TAB PO SCH (21:00)
[2019-02-03 21:28] LABS: Anion Gap 11 mmol/L (10-20); BUN (Urea Nitrogen) 9 mg/dL (8.4-25.7); Calc. Creatinine Clearance 145 mL/min (70-130); Calcium 9.1 mg/dL (7.8-10.44); Carbon Dioxide 29 mmol/L (22-29); Chloride 99 mmol/L (98-107); Estimated GFR-MDRD Greater than 90; Glucose 204 mg/dL (70-105); Potassium 4.7 mmol/L (3.5-5.1); Sodium 134 mmol/L (136-145)
[2019-02-03] MEDS ORDERED: Melatonin 3 MG TAB PO PRN (22:25)
[2019-02-03] MEDS: Dextrose 5% in Water 1,000 ML IV SCH (23:11)
[2019-02-04 04:56] LABS: Albumin 4.3 g/dL (3.5-5.0); Anion Gap 11 mmol/L (10-20); BUN (Urea Nitrogen) 10 mg/dL (8.4-25.7); BUN/Creatinine Ratio 13.33; Calc. Creatinine Clearance 163 mL/min (70-130); Calcium 8.9 mg/dL (7.8-10.44); Carbon Dioxide 27 mmol/L (22-29); Chloride 101 mmol/L (98-107); Estimated GFR-MDRD Greater than 90; Glucose 192 mg/dL (70-105); Phosphorus 3.1 mg/dL (2.3-4.7); Sodium 135 mmol/L (136-145)
[2019-02-04 05:00] LABS: Anion Gap 12 mmol/L (10-20); BUN (Urea Nitrogen) 10 mg/dL (8.4-25.7); Calc. Creatinine Clearance 169 mL/min (70-130); Calcium 9.1 mg/dL (7.8-10.44); Carbon Dioxide 24 mmol/L (22-29); Chloride 102 mmol/L (98-107); Estimated GFR-MDRD Greater than 90; Glucose 194 mg/dL (70-105); Potassium 4.1 mmol/L (3.5-5.1); Sodium 134 mmol/L (136-145)
[2019-02-04] MEDS: Dextrose 5% in Water 1,000 ML IV SCH ×2 (05:04→10:59)
[2019-02-04] MEDS: Levothyroxine Sodium 88 MCG TAB PO SCH (06:09)
[2019-02-04] MEDS: Insulin Regular 300 UNITS/3 ML VIAL SC PRN ×2 (06:09→11:31)
[2019-02-04] MEDS ORDERED: Gabapentin 300 MG CAP PO SCH (09:00)
[2019-02-04] MEDS: busPIRone HCl 10 MG TAB PO SCH ×2 (09:17→15:01)
[2019-02-04] MEDS: Aspirin Chewable 81 MG TAB PO SCH (09:17)
[2019-02-04] MEDS: Insulin Glargine 50 UNITS in Pre-Filled Syringe 1 EACH SC SCH (09:18)
[2019-02-04] MEDS: Lisinopril 20 MG TAB PO SCH (09:18)
[2019-02-04] MEDS: Acetaminophen 325 MG TAB PO PRN (11:02)
[2019-02-04 11:14] LABS: Anion Gap 11 mmol/L (10-20); BUN (Urea Nitrogen) 9 mg/dL (8.4-25.7); Calc. Creatinine Clearance 160 mL/min (70-130); Carbon Dioxide 27 mmol/L (22-29); Chloride 102 mmol/L (98-107); Estimated GFR-MDRD Greater than 90; Glucose 216 mg/dL (70-105); Potassium 4.3 mmol/L (3.5-5.1); Sodium 136 mmol/L (136-145)
--- NOTE | 2019-02-04 12:01 | PRG ---
DATE OF SERVICE: 02/04/2019 SUBJECTIVE: A 58-year-old gentleman, being seen for hyponatremia. The patient denied any nausea, vomiting, or chest pain. OBJECTIVE: See above. Awake, alert, in no acute distress. CONSTITUTIONAL: The patient is awake, alert. VITAL SIGNS: Afebrile, pulse 75, breathing 16, blood pressure 113/67. GENERAL APPEARANCE AND MENTAL STATUS: Fair. HEAD/NECK: Normocephalic. Atraumatic. EYES: EOMI. No deformity. EARS: Clear. No ulcers. NOSE: Intact. No lesions. MOUTH: Clear. No discharge. THROAT: Clear. No exudate. LUNGS: Clear. No crackles. CARDIAC: S1, S2. No rub. ABDOMEN: Benign. Bowel sounds positive. GENITALIA/RECTUM: Barrera absent. BACK/EXTREMITIES: Edema 0+. NEUROLOGICAL: Alert and motor intact. SKIN: LYMPHATICS: LABORATORY DATA: Labs show sodium 134. ASSESSMENT AND RECOMMENDATION: 1. Hyponatremia, most likely acute. We will continue hydration . 2. Anemia, stable. 3. Medication based on GFR appropriate. No indication for hypertonic saline. Advised to comply with limiting fluid intake. Job ID: [id number]
[2019-02-04] MEDS: Cyclobenzaprine 10 MG TAB PO PRN (12:04)
[2019-02-04 12:31] LABS: Anion Gap 11 mmol/L (10-20); BUN (Urea Nitrogen) 9 mg/dL (8.4-25.7); Calc. Creatinine Clearance 158 mL/min (70-130); Carbon Dioxide 27 mmol/L (22-29); Chloride 102 mmol/L (98-107); Estimated GFR-MDRD Greater than 90; Glucose 193 mg/dL (70-105); Potassium 4.7 mmol/L (3.5-5.1); Sodium 135 mmol/L (136-145)
--- NOTE | 2019-02-04 13:03 | PDOC.CPN ---
- Subjective Date: 02/04/19 Time: 13:01 Interval history: Doing well. No chest pain. - Review of Systems General: denies: fever/chills, weight/appetite/sleep changes, night sweats, fatigue Respiratory: denies: cough, congestion, shortness of breath, exercise intolerance Cardiovascular: denies: chest pain, palpitation, edema, paroxysmal nocturnal dyspnea, orthopnea Gastrointestinal: denies: nausea, vomiting, diarrhea, constipation, abd pain, GI bleeding Musculoskeletal: denies: pain, tenderness, stiffness, swelling, arthritis/ arthralgias Neurological: denies: numbness, syncope, seizure, weakness - Objective Allergies/Adverse Reactions: Allergies Allergy/AdvReac Type Severity Reaction Status Date / Time No Known Allergies Allergy Verified 07/10/18 04:40 Visit Medications: Current Medications Acetaminophen (Tylenol) 650 mg PO Q4H PRN PRN Reason: Headache/Fever/Mild Pain (1-3) Last Admin: 02/04/19 11:02 Dose: 650 mg Aspirin (Aspirin Chewable) 81 mg PO DAILY [facility] Last Admin: 02/04/19 09:17 Dose: 81 mg Atorvastatin Calcium (Lipitor) 10 mg PO HS [facility] Last Admin: 02/03/19 21:47 Dose: 10 mg Benztropine Mesylate (Cogentin) 2 mg PO [facility] Last Admin: 02/03/19 22:23 Dose: Not Given Buspirone HCl (Buspar) 5 mg PO TID [facility] Last Admin: 02/04/19 09:17 Dose: 5 mg Cyclobenzaprine HCl (Flexeril) 5 mg PO TIDPRN PRN PRN Reason: Muscle Spasm Last Admin: 02/04/19 12:04 Dose: 5 mg Dextrose/Water (Dextrose 50%) 25 gm SLOW IVP PRN PRN PRN Reason: Hypoglycemia Gabapentin (Neurontin) 600 mg PO HS [facility] Last Admin: 02/03/19 21:47 Dose: 600 mg [facility] ([facility]ontin) [facility] Admin: 02/04/19 09:18 Dose: 300 mg Glucagon (Glucagon) 1 mg IM PRN PRN PRN Reason: Hypoglycemia Haloperidol (Haldol) 5 mg PO [facility] Last Admin: 02/03/19 22:23 Dose: Not Given Insulin Glargine 50 units/ (Miscellaneous Medication) 0.5 mls @ 0 mls/hr SC BID [facility] Last Admin: 02/04/19 09:18 Dose: 0.5 mls Dextrose/Water (D5w) 1,000 mls @ 175 mls/hr IV .Q5H43M [facility] Last Admin: 02/04/19 10:59 Dose: 1,000 mls Insulin Human Regular (Humulin R) 0 units SC .MILD SLIDING SCALE PRN PRN Reason: Mild Correctional Scale Last Admin: 02/04/19 11:31 Dose: 3 unit Insulin Human Regular (Humulin R) 0 units SC .BEDTIME SLIDING SC PRN PRN Reason: Bedtime Correctional Scale Last Admin: 02/03/19 21:49 Dose: 2 unit Levothyroxine Sodium (Synthroid) 88 mcg PO 0600 [facility] Last Admin: 02/04/19 06:09 Dose: 88 mcg Lisinopril (Zestril) 20 mg PO DAILY [facility] Last Admin: 02/04/19 09:18 Dose: 20 mg Lorazepam (Ativan) 1 mg SLOW IVP Q4H PRN PRN Reason: Anxiety/Agitation Last Admin: 02/03/19 03:08 Dose: 1 mg Melatonin (Melatonin) 3 mg PO HS PRN PRN Reason: Insomnia Last Admin: 02/03/19 23:11 Dose: 3 mg Pantoprazole Sodium (Protonix) 20 mg PO DAILY [facility] Last Admin: 02/04/19 09:18 Dose: 20 mg Sodium Chloride (Flush - Normal Saline) 10 ml IVF Q12HR PRN PRN Reason: Saline Flush Sodium Chloride (Flush - Normal Saline) 10 ml IVF PRN PRN PRN Reason: Saline Flush Vital Signs & Weight: Vital Signs Temp Pulse Resp BP BP BP Pulse Ox 02/04/19 10:47 98.4 F 70 20 117/70 94 L 02/04/19 08:14 97.6 F 64 20 131/84 154/104 H 113/67 96 02/04/19 03:49 98 F 69 16 128/82 96 Weight 241 lb 15.987 oz - Physical Exam General: alert & oriented x3 HEENT: mucus membranes moist Neck: supple neck Cardiac: regular rate and rhythm Lungs: normal breath sounds Neuro: grossly intact Abdomen: active bowel sounds Extremities: no edema Skin: clear Musculoskeletal: no pain - Labs Result Diagrams: 02/03/19 02:42 02/04/19 11:55 Troponin/CKMB Troponin I Less than 0.010 ng/mL (< 0.028) 02/03/19 02:42 - Telemetry Sinus rhythms and dysrhythmias: sinus rhythm - Assessment/Plan Assessment/Plan: 1. Chest pain 2. Normal LHC 6 months ago. 3. Hyponatremia PLAN: - No ACS, normal troponins and normal ECG - May discharge at any time from cardiac perspective.
[2019-02-04] MEDS ORDERED: traMADol HCl 50 MG TAB PO PRN (14:46)
[2019-02-04] MEDS ORDERED: Methocarbamol 500 MG TAB PO PRN (14:46)
[2019-02-04 15:17] VITALS: BP 172/87; TEMP 98.2
[2019-02-04 16:33] LABS: Anion Gap 10 mmol/L (10-20); BUN (Urea Nitrogen) 9 mg/dL (8.4-25.7); Calc. Creatinine Clearance 163 mL/min (70-130); Carbon Dioxide 29 mmol/L (22-29); Chloride 99 mmol/L (98-107); Estimated GFR-MDRD Greater than 90; Glucose 164 mg/dL (70-105); Potassium 4.5 mmol/L (3.5-5.1); Sodium 133 mmol/L (136-145)
--- NOTE | 2019-02-04 17:35 | DIS ---
DATE OF ADMISSION: 02/03/2019 DATE OF DISCHARGE: 02/04/2019 DISCHARGE DISPOSITION: Home. FOLLOWUP: 1. Follow up with [facility] in 1 week. 2. Basic metabolic profile after 3 days as well as next week is recommended. Primary care physician advised to follow. ALLERGIES: NO KNOWN DRUG ALLERGIES. DISCHARGE MEDICATIONS: The patient was advised to restart all of his home medications. Please note that the patient did not bring list of his home medications. He was advised to verify all of his home medications with his primary care physician at the next visit. It is unclear what medications he takes at home. The patient was seen and examined on the day of discharge. Denies any chest pain, shortness of breath, headache, double vision, blurring of vision, facial asymmetry, or weakness or numbness of any of his extremities. The patient is ambulating in the hallway. BRIEF HOSPITAL COURSE: The patient is a 58-year-old male with hypertension, hyperlipidemia, and diabetes mellitus type 2, presented to the hospital with chest discomfort. The patient had a normal cardiac catheterization 6 months ago per patient report. Records were requested for [facility], which are still pending at the time of discharge. The patient was evaluated by Cardiology. His EKG was negative. His troponins were negative as well. The patient has been cleared by Cardiology for discharge. The patient also had hyponatremia with sodium of 121 on admission that was probably a lab error. He was evaluated by Nephrology, Dr. Blount. His baseline sodium runs around 130 to 134. His sodium on the day of discharge is 133. Please see various consultation notes for details. FINAL DIAGNOSES: 1. Chest discomfort, acute coronary syndrome ruled out. 2. Normal cardiac catheterization 6 months ago per patient report. Official report unavailable. 3. Acute on chronic hyponatremia of unclear etiology. Home medications are unavailable. His sodium at discharge is 133. 4. Diabetes mellitus, type 2. 5. Hypertension. 6. Hyperlipidemia. 7. Chronic pain syndrome. 8. Cholelithiasis. 9. Hypomagnesemia. 10. Morbid obesity with a BMI 40.3. 11. Abnormal LFTs of unclear etiology. His right upper quadrant ultrasound was consistent with cholelithiasis without any other acute findings. The common duct measured 4 mm. It showed hepatic steatosis. Repeat LFTs after 1 week is recommended. Primary care physician advised to follow. PLAN: 1. Plan of care was discussed with the patient in detail. He stated understanding. 2. Fall precaution was emphasized. Job ID: [id number]
== END 2019-02-04 17:48 | disposition home or self-care (01) | DRG 641 ==
LOC: ERS 19:18 → ERHOLD 02-03 00:30 → 2SW 02-03 06:50 → OBSVTOIN 02-03 14:17
PROVIDERS: ADMIT Internal Medicine; ATTEND Internal Medicine
DX: E87.1 Hypo-osmolality and hyponatremia (principal); Z68.41 Body mass index [BMI] 40.0-44.9, adult; R07.89 Other chest pain; J44.9 Chronic obstructive pulmonary disease, unspecified; E11.42 Type 2 diabetes mellitus with diabetic polyneuropathy; E03.9 Hypothyroidism, unspecified; E78.5 Hyperlipidemia, unspecified; G25.81 Restless legs syndrome; F31.9 Bipolar disorder, unspecified; F25.9 Schizoaffective disorder, unspecified; K21.9 Gastro-esophageal reflux disease without esophagitis; F17.220 Nicotine dependence, chewing tobacco, uncomplicated; B19.20 Unspecified viral hepatitis C without hepatic coma; D63.1 Anemia in chronic kidney disease; I12.9 Hypertensive chronic kidney disease with stage 1 through stage 4 chronic kidney disease, or unspecified chronic kidney disease; N18.3 Chronic kidney disease, stage 3 (moderate); G89.4 Chronic pain syndrome; K80.20 Calculus of gallbladder without cholecystitis without obstruction; E66.01 Morbid (severe) obesity due to excess calories; R94.5 Abnormal results of liver function studies; E83.42 Hypomagnesemia; Z79.4 Long term (current) use of insulin
CPT/HCPCS: 36415; 36416; 71045; 71275; 72191; 74175; 76705; 80053; 80061; 80069; 82550; 83690; 83735; 83880; 83930; 83935; 84300; 84439; 84443; 84484; 84550; 85025; 93005; 96361; 96374; 96376; J1815; J2060; J2270; J3475; J7050; Q9967; S0028

== ENCOUNTER 2019-11-14 23:54 | Emergency (ER) | payer MEDICARE ==
[2019-11-15] MEDS ORDERED: Bupivacaine 0.25% 10 ML VIAL ONE (00:29)
[2019-11-15] MEDS ORDERED: Bupivacaine 0.5% 10 ML VIAL ONE (00:29)
[2019-11-15] MEDS ORDERED: Ketorolac Tromethamine 30 MG/ML VIAL ONE (00:35)
== END 2019-11-15 01:15 | disposition home or self-care (01) ==
LOC: ERS 23:54
DX: M54.2 Cervicalgia (principal); G89.29 Other chronic pain; E03.9 Hypothyroidism, unspecified; E78.5 Hyperlipidemia, unspecified; E11.42 Type 2 diabetes mellitus with diabetic polyneuropathy; E78.00 Pure hypercholesterolemia, unspecified; I10 Essential (primary) hypertension; F41.9 Anxiety disorder, unspecified; F31.9 Bipolar disorder, unspecified; F17.220 Nicotine dependence, chewing tobacco, uncomplicated; Z79.899 Other long term (current) drug therapy
CPT/HCPCS: 20553; 96372; J1885; J3490; S0020

== ENCOUNTER 2020-03-19 20:33 | Emergency (ER) | payer MEDICARE ==
[2020-03-19 21:02] LABS: Bilirubin Negative (Negative); Blood, Urine Negative (Negative); Clarity Clear (Clear); Glucose, Urine (Dipstick) Greater than 1000 mg/dL (Negative); Ketone, Urine Negative (Negative); Leukocyte Negative Leu/uL (Negative); Nitrite Negative (Negative); Protein, Urine (Dipstick) Negative (Neg-Trace); Specific Gravity, Urine 1.005 (1.002-1.036); Urobilinogen Normal mg/dL (Less than 2); pH, Urine 5.5 (5.0-9.0)
== END 2020-03-19 22:40 | disposition home or self-care (01) ==
LOC: ERS 20:33
DX: N40.1 Benign prostatic hyperplasia with lower urinary tract symptoms (principal); R33.8 Other retention of urine; E11.42 Type 2 diabetes mellitus with diabetic polyneuropathy; E03.9 Hypothyroidism, unspecified; E78.00 Pure hypercholesterolemia, unspecified; I10 Essential (primary) hypertension; E66.9 Obesity, unspecified; F17.220 Nicotine dependence, chewing tobacco, uncomplicated; Z79.84 Long term (current) use of oral hypoglycemic drugs; E78.5 Hyperlipidemia, unspecified; Z79.82 Long term (current) use of aspirin; Z79.899 Other long term (current) drug therapy
CPT/HCPCS: 51702; 81003

== ENCOUNTER 2020-04-16 06:02 | Emergency (ER) | payer MEDICARE ==
[2020-04-16] MEDS ORDERED: Morphine 10 MG/ML VIAL ONE (07:15)
[2020-04-16] MEDS ORDERED: Ondansetron ODT 4 MG TAB ONE (07:15)
== END 2020-04-16 07:30 | disposition home or self-care (01) ==
LOC: ERS 06:02
DX: G89.29 Other chronic pain (principal); M54.2 Cervicalgia; Z79.899 Other long term (current) drug therapy; Z79.84 Long term (current) use of oral hypoglycemic drugs; Z79.82 Long term (current) use of aspirin; E11.42 Type 2 diabetes mellitus with diabetic polyneuropathy; G47.30 Sleep apnea, unspecified; E03.9 Hypothyroidism, unspecified; E78.5 Hyperlipidemia, unspecified; E78.00 Pure hypercholesterolemia, unspecified; I10 Essential (primary) hypertension; E66.9 Obesity, unspecified; F17.220 Nicotine dependence, chewing tobacco, uncomplicated
CPT/HCPCS: 96372; 99283; J2270; Q0162

== ENCOUNTER 2020-04-20 01:22 | Emergency (ER) | payer MEDICARE ==
--- NOTE | 2020-04-20 08:58 | CT ---
PRELIMINARY REPORT/[facility]/EMERGENCY AFTER HOURS PROCEDURE: EXAM: CT Cervical Spine Without Intravenous Contrast. CLINICAL HISTORY: 59-year-old male patient presents to the ER with complaint of neck pain and back pain after fall on . Patient reports that he was evaluated at the [facility] and was given some pain me dication but did not have any imaging performed of his back. Patient reports that he is concerned abo ut a fracture in the spine. Patient reports that he has had a tingling in bilateral lower legs and bi lateral upper arms and severe pain when sitting. Patient reports that when he lays on his side his sy mptoms are improved. The patient denies any numbness, weakness, incontinence of bowel or bladder, hea d injury, LOC, or other traumatic injury. TECHNIQUE: Axial computed tomography images of the cervical spine without intravenous contrast. Sagittal and cor onal reformations performed. COMPARISON: None provided. FINDINGS: BONES: No acute fracture or focal osseous lesion. Bony alignment is anatomic. DISCS / DEGENERATIVE CHANGES: Disc osteophyte complexes seen at C5/C6 and C6/C7 with mild central canal stenosis. SOFT TISSUES: No prevertebral soft tissue swelling. No apical pneumothorax. IMPRESSION: No acute cervical spine abnormality. Mild degenerative changes at C5/C6 and C6/C7. EXAM: CT Thoracic Spine Without Intravenous Contrast. TECHNIQUE: Axial computed tomography images of the thoracic spine without intravenous contrast. Sagittal and cor onal reformations performed. CONTRAST: Without COMPARISON: None provided. FINDINGS: BONES: No acute fracture or focal osseous lesion. Bony alignment is anatomic. DISCS / DEGENERATIVE CHANGES: No significant spinal canal stenosis. Multilevel anterior osteophyte formation. SOFT TISSUES: The soft tissues are unremarkable. IMPRESSION: No acute thoracic spine abnormality. EXAM: CT Lumbar Spine Without Intravenous Contrast. TECHNIQUE: Axial computed tomography images of the lumbar spine without intravenous contrast. Sagittal and coron al reformations performed. COMPARISON: None provided. FINDINGS: BONES: No acute fracture or focal osseous lesion. Bony alignment is anatomic. DISCS/DEGENERATIVE CHANGES: Broad-based central disc herniation seen at L4/L5 and L5/S1 with degenerative disc disease and mild t o moderate central canal stenosis. SOFT TISSUES: The paraspinal soft tissues are unremarkable. IMPRESSION: No acute lumbar spine abnormality. Mild to moderate degenerative changes at L4/L5 and L5/S1. ELECTRONICALLY SIGNED BY: Diego Meyer MD Apr 20, 2020 3:11:59 AM REIMBURSEMENT COORDINATOR This report is intended for review by the ordering physician only, in accordance of law. If you recei ve this report in error, please call [facility] at [phone]. FINAL REPORT EMERGENCY AFTER HOURS CT LUMBAR SPINE WITHOUT CONTRAST: FINDINGS/IMPRESSION: I agree with the findings and impression given in the preliminary report per [facility] physici an. There are degenerative changes in the lumbar spine, most prominent at L4-5 and L5-S1. No acute fractu re or subluxation is seen. POS: ANGELICA
--- NOTE | 2020-04-20 08:58 | CT ---
PRELIMINARY REPORT/[facility]/EMERGENCY AFTER HOURS PROCEDURE: EXAM: CT Cervical Spine Without Intravenous Contrast. CLINICAL HISTORY: 59-year-old male patient presents to the ER with complaint of neck pain and back pain after fall on . Patient reports that he was evaluated at the [facility] and was given some pain me dication but did not have any imaging performed of his back. Patient reports that he is concerned abo ut a fracture in the spine. Patient reports that he has had a tingling in bilateral lower legs and bi lateral upper arms and severe pain when sitting. Patient reports that when he lays on his side his sy mptoms are improved. The patient denies any numbness, weakness, incontinence of bowel or bladder, hea d injury, LOC, or other traumatic injury. TECHNIQUE: Axial computed tomography images of the cervical spine without intravenous contrast. Sagittal and cor onal reformations performed. COMPARISON: None provided. FINDINGS: BONES: No acute fracture or focal osseous lesion. Bony alignment is anatomic. DISCS / DEGENERATIVE CHANGES: Disc osteophyte complexes seen at C5/C6 and C6/C7 with mild central canal stenosis. SOFT TISSUES: No prevertebral soft tissue swelling. No apical pneumothorax. IMPRESSION: No acute cervical spine abnormality. Mild degenerative changes at C5/C6 and C6/C7. EXAM: CT Thoracic Spine Without Intravenous Contrast. TECHNIQUE: Axial computed tomography images of the thoracic spine without intravenous contrast. Sagittal and cor onal reformations performed. CONTRAST: Without COMPARISON: None provided. FINDINGS: BONES: No acute fracture or focal osseous lesion. Bony alignment is anatomic. DISCS / DEGENERATIVE CHANGES: No significant spinal canal stenosis. Multilevel anterior osteophyte formation. SOFT TISSUES: The soft tissues are unremarkable. IMPRESSION: No acute thoracic spine abnormality. EXAM: CT Lumbar Spine Without Intravenous Contrast. TECHNIQUE: Axial computed tomography images of the lumbar spine without intravenous contrast. Sagittal and coron al reformations performed. COMPARISON: None provided. FINDINGS: BONES: No acute fracture or focal osseous lesion. Bony alignment is anatomic. DISCS/DEGENERATIVE CHANGES: Broad-based central disc herniation seen at L4/L5 and L5/S1 with degenerative disc disease and mild t o moderate central canal stenosis. SOFT TISSUES: The paraspinal soft tissues are unremarkable. IMPRESSION: No acute lumbar spine abnormality. Mild to moderate degenerative changes at L4/L5 and L5/S1. ELECTRONICALLY SIGNED BY: Diego Meyer MD Apr 20, 2020 3:11:59 AM PARAMEDICAL AIDE This report is intended for review by the ordering physician only, in accordance of law. If you recei ve this report in error, please call [facility] at [phone]. FINAL REPORT EMERGENCY AFTER HOURS CT THORACIC SPINE WITHOUT CONTRAST: FINDINGS/IMPRESSION: I agree with the findings and impression given in the preliminary report per [facility] physici an. No evidence of acute osseous abnormality of the thoracic spine. POS: [email or web address]
--- NOTE | 2020-04-20 08:59 | CT ---
PRELIMINARY REPORT/[facility]/EMERGENCY AFTER HOURS PROCEDURE: EXAM: CT Cervical Spine Without Intravenous Contrast. CLINICAL HISTORY: 59-year-old male patient presents to the ER with complaint of neck pain and back pain after fall on . Patient reports that he was evaluated at the [facility] and was given some pain me dication but did not have any imaging performed of his back. Patient reports that he is concerned abo ut a fracture in the spine. Patient reports that he has had a tingling in bilateral lower legs and bi lateral upper arms and severe pain when sitting. Patient reports that when he lays on his side his sy mptoms are improved. The patient denies any numbness, weakness, incontinence of bowel or bladder, hea d injury, LOC, or other traumatic injury. TECHNIQUE: Axial computed tomography images of the cervical spine without intravenous contrast. Sagittal and cor onal reformations performed. COMPARISON: None provided. FINDINGS: BONES: No acute fracture or focal osseous lesion. Bony alignment is anatomic. DISCS / DEGENERATIVE CHANGES: Disc osteophyte complexes seen at C5/C6 and C6/C7 with mild central canal stenosis. SOFT TISSUES: No prevertebral soft tissue swelling. No apical pneumothorax. IMPRESSION: No acute cervical spine abnormality. Mild degenerative changes at C5/C6 and C6/C7. EXAM: CT Thoracic Spine Without Intravenous Contrast. TECHNIQUE: Axial computed tomography images of the thoracic spine without intravenous contrast. Sagittal and cor onal reformations performed. CONTRAST: Without COMPARISON: None provided. FINDINGS: BONES: No acute fracture or focal osseous lesion. Bony alignment is anatomic. DISCS / DEGENERATIVE CHANGES: No significant spinal canal stenosis. Multilevel anterior osteophyte formation. SOFT TISSUES: The soft tissues are unremarkable. IMPRESSION: No acute thoracic spine abnormality. EXAM: CT Lumbar Spine Without Intravenous Contrast. TECHNIQUE: Axial computed tomography images of the lumbar spine without intravenous contrast. Sagittal and coron al reformations performed. COMPARISON: None provided. FINDINGS: BONES: No acute fracture or focal osseous lesion. Bony alignment is anatomic. DISCS/DEGENERATIVE CHANGES: Broad-based central disc herniation seen at L4/L5 and L5/S1 with degenerative disc disease and mild t o moderate central canal stenosis. SOFT TISSUES: The paraspinal soft tissues are unremarkable. IMPRESSION: No acute lumbar spine abnormality. Mild to moderate degenerative changes at L4/L5 and L5/S1. ELECTRONICALLY SIGNED BY: Diego Meyer MD Apr 20, 2020 3:11:59 AM TOGGLER This report is intended for review by the ordering physician only, in accordance of law. If you recei ve this report in error, please call [facility] at [phone]. FINAL REPORT EMERGENCY AFTER HOURS CT CERVICAL SPINE WITHOUT CONTRAST: FINDINGS/IMPRESSION: I agree with the findings and impression given in the preliminary report per [facility] physici an. There are degenerative changes of the cervical spine without acute osseous abnormality. POS: ANGELICA
== END 2020-04-20 03:28 | disposition home or self-care (01) ==
LOC: ERS 01:22
DX: S39.012A Strain of muscle, fascia and tendon of lower back, initial encounter (principal); E11.42 Type 2 diabetes mellitus with diabetic polyneuropathy; E03.9 Hypothyroidism, unspecified; E78.5 Hyperlipidemia, unspecified; E78.00 Pure hypercholesterolemia, unspecified; I10 Essential (primary) hypertension; E66.9 Obesity, unspecified; F17.220 Nicotine dependence, chewing tobacco, uncomplicated; W19.XXXA Unspecified fall, initial encounter
CPT/HCPCS: 72125; 72128; 72131

== ENCOUNTER 2020-05-29 21:05 | Emergency (ER) | payer MEDICARE ==
[2020-05-29 22:01] LABS: #Basophils 0.1 thou/uL (0.0-0.2); #Eosinphils 0.1 thou/uL (0.0-0.7); #Lymphocytes 2.6 thou/uL (1.20-3.40); #Monocytes 0.7 thou/uL (0.11-0.59); #Neutrophils 6.9 thou/uL (1.40-6.50); %Basophils 0.7 % (0.0-1.0); %Eosinophils 1.1 % (0.0-10.0); %Lymphocytes 25.2 % (21.0-51.0); %Monocytes 6.6 % (0.0-10.0); %Neutrophils 66.4 % (42.0-75.0); Hemoglobin 17.4 g/dL (14.0-18.0); Mean Corpuscular HGB CONC 33.1 g/dL (32.0-36.0); Mean Corpuscular Volume 90.8 fL (78.0-98.0); Mean Platelet Volume 8.1 fL (7.4-10.4); Platelet Count 169 thou/uL (130-400); RBC Distribution Width 12.2 % (11.5-14.5); Red Blood Cell (RBC) Count 5.78 mill/uL (4.70-6.10); White Blood Cell (WBC) Count 10.4 thou/uL (4.8-10.8)
[2020-05-29 22:23] LABS: ALT (SGPT) 11 U/L (8-55); AST (SGOT) 14 U/L (5-34); Albumin 4.5 g/dL (3.4-4.8); Alkaline Phosphatase 86 U/L (40-110); Anion Gap 14 mmol/L (10-20); BUN (Urea Nitrogen) 16 mg/dL (8.4-25.7); Bilirubin, Total 1.1 mg/dL (0.2-1.2); Calc. Creatinine Clearance 0 mL/min (70-130); Calcium 9.3 mg/dL (7.8-10.44); Carbon Dioxide 25 mmol/L (23-31); Chloride 97 mmol/L (98-107); Globulin 2.8 g/dL (2.4-3.5); Glucose 217 mg/dL (80-115); Potassium 4.1 mmol/L (3.5-5.1); Protein, Total 7.3 g/dL (5.8-8.1); Sodium 132 mmol/L (136-145)
== END 2020-05-29 22:41 | disposition left against medical advice (07) ==
LOC: ERS 21:05
DX: R07.2 Precordial pain (principal); R05 Cough; R50.9 Fever, unspecified; E11.42 Type 2 diabetes mellitus with diabetic polyneuropathy; E03.9 Hypothyroidism, unspecified; E78.5 Hyperlipidemia, unspecified; E78.00 Pure hypercholesterolemia, unspecified; I10 Essential (primary) hypertension; E66.9 Obesity, unspecified; F17.220 Nicotine dependence, chewing tobacco, uncomplicated; G47.30 Sleep apnea, unspecified; Z79.899 Other long term (current) drug therapy; Z79.84 Long term (current) use of oral hypoglycemic drugs; Z79.82 Long term (current) use of aspirin
CPT/HCPCS: 36415; 71045; 80053; 83880; 84484; 85025; 93005

== ENCOUNTER 2020-07-27 21:33 | Emergency (ER) | payer MEDICARE ==
[2020-07-27] MEDS ORDERED: Ketorolac Tromethamine 30 MG/ML VIAL ONE (22:24)
[2020-07-27] MEDS ORDERED: Morphine 4 MG/ML VIAL ONE (22:24)
== END 2020-07-27 22:42 | disposition home or self-care (01) ==
LOC: ERS 21:33
DX: M54.2 Cervicalgia (principal); E11.42 Type 2 diabetes mellitus with diabetic polyneuropathy; E03.9 Hypothyroidism, unspecified; E78.5 Hyperlipidemia, unspecified; I10 Essential (primary) hypertension; F17.210 Nicotine dependence, cigarettes, uncomplicated; Z79.899 Other long term (current) drug therapy; Z79.82 Long term (current) use of aspirin; Z79.84 Long term (current) use of oral hypoglycemic drugs
CPT/HCPCS: 96372; 99283; J1885; J2270

== ENCOUNTER 2020-08-12 19:58 | Emergency (ER) | payer MEDICARE ==
[2020-08-12] MEDS ORDERED: Morphine 4 MG/ML VIAL ONE (22:42)
[2020-08-12] MEDS ORDERED: Ketorolac Tromethamine 30 MG/ML VIAL ONE (22:42)
== END 2020-08-12 23:08 | disposition home or self-care (01) ==
LOC: ERS 19:58
DX: G89.29 Other chronic pain (principal); M54.2 Cervicalgia; E11.42 Type 2 diabetes mellitus with diabetic polyneuropathy; E03.9 Hypothyroidism, unspecified; E78.5 Hyperlipidemia, unspecified; E78.00 Pure hypercholesterolemia, unspecified; I10 Essential (primary) hypertension; E66.9 Obesity, unspecified; F17.210 Nicotine dependence, cigarettes, uncomplicated; Z79.82 Long term (current) use of aspirin; Z79.84 Long term (current) use of oral hypoglycemic drugs; Z79.899 Other long term (current) drug therapy
CPT/HCPCS: 96372; 99283; J1885; J2270

== ENCOUNTER 2020-10-08 19:34 | Emergency (ER) | payer MEDICARE ==
[2020-10-08] MEDS ORDERED: Morphine 4 MG/ML VIAL ONE (21:39)
== END 2020-10-08 22:30 | disposition home or self-care (01) ==
LOC: ERS 19:34
DX: S16.1XXA Strain of muscle, fascia and tendon at neck level, initial encounter (principal); E11.9 Type 2 diabetes mellitus without complications; E03.9 Hypothyroidism, unspecified; E78.5 Hyperlipidemia, unspecified; E78.00 Pure hypercholesterolemia, unspecified; I10 Essential (primary) hypertension; M19.90 Unspecified osteoarthritis, unspecified site; E66.9 Obesity, unspecified; Z87.891 Personal history of nicotine dependence; Z79.82 Long term (current) use of aspirin; Z79.899 Other long term (current) drug therapy; Z79.84 Long term (current) use of oral hypoglycemic drugs; X50.0XXA Overexertion from strenuous movement or load, initial encounter
CPT/HCPCS: 96372; 99283; J2270

== ENCOUNTER 2020-10-14 03:11 | Emergency (ER) | payer MEDICARE | END 2020-10-14 03:56 | disposition home or self-care (01) | LOC: ERS 03:11 | DX: M54.2 Cervicalgia (principal); G89.29 Other chronic pain; E11.42 Type 2 diabetes mellitus with diabetic polyneuropathy; E03.9 Hypothyroidism, unspecified; E78.5 Hyperlipidemia, unspecified; E78.00 Pure hypercholesterolemia, unspecified; I10 Essential (primary) hypertension; E66.9 Obesity, unspecified; Z87.891 Personal history of nicotine dependence | CPT/HCPCS: 99283 ==

== ENCOUNTER 2020-12-18 00:37 | Emergency (ER) | payer MEDICARE | END 2020-12-18 01:35 | disposition home or self-care (01) | LOC: ERS 00:37 | DX: M54.2 Cervicalgia (principal); G89.29 Other chronic pain; E11.42 Type 2 diabetes mellitus with diabetic polyneuropathy; E03.9 Hypothyroidism, unspecified; E78.5 Hyperlipidemia, unspecified; E78.00 Pure hypercholesterolemia, unspecified; E66.9 Obesity, unspecified; I10 Essential (primary) hypertension; G47.30 Sleep apnea, unspecified; M19.90 Unspecified osteoarthritis, unspecified site; Z87.891 Personal history of nicotine dependence; Z79.82 Long term (current) use of aspirin; Z79.899 Other long term (current) drug therapy; Z79.84 Long term (current) use of oral hypoglycemic drugs | CPT/HCPCS: 99283 ==

== ENCOUNTER 2022-03-16 00:35 | Emergency (ER) | payer MEDICARE, OTHER ==
[2022-03-16] MEDS ORDERED: Dexamethasone 10 MG/ML VIAL ONE (01:04)
[2022-03-16] MEDS ORDERED: Ketorolac Tromethamine 30 MG/ML VIAL ONE (01:04)
== END 2022-03-16 01:35 | disposition home or self-care (01) ==
LOC: ERS 00:35
DX: M54.12 Radiculopathy, cervical region (principal); E11.9 Type 2 diabetes mellitus without complications; E03.9 Hypothyroidism, unspecified; E78.00 Pure hypercholesterolemia, unspecified; I10 Essential (primary) hypertension; E66.9 Obesity, unspecified; F17.210 Nicotine dependence, cigarettes, uncomplicated; Z79.82 Long term (current) use of aspirin; Z79.899 Other long term (current) drug therapy; Z79.84 Long term (current) use of oral hypoglycemic drugs
CPT/HCPCS: 96374; 96375; J1100; J1885

== ENCOUNTER 2022-06-04 01:43 | Emergency (ER) | payer OTHER ==
[2022-06-04] MEDS ORDERED: Diazepam 5 MG TAB ONE (04:17)
[2022-06-04] MEDS ORDERED: Orphenadrine Citrate 60 MG/2 ML VIAL ONE (04:20)
== END 2022-06-04 04:58 | disposition home or self-care (01) ==
LOC: ERS 01:43
DX: M62.838 Other muscle spasm (principal); E03.9 Hypothyroidism, unspecified; E78.00 Pure hypercholesterolemia, unspecified; I10 Essential (primary) hypertension; E11.9 Type 2 diabetes mellitus without complications; E66.9 Obesity, unspecified; F17.210 Nicotine dependence, cigarettes, uncomplicated; Z79.82 Long term (current) use of aspirin; Z79.84 Long term (current) use of oral hypoglycemic drugs; Z79.899 Other long term (current) drug therapy
CPT/HCPCS: 96372; 99283; J2360

== ENCOUNTER 2022-09-12 23:56 | Observation (INO) | payer OTHER ==
[2022-09-13 00:22] LABS: #Basophils 0.1 thou/uL (0.0-0.2); #Eosinphils 0.1 thou/uL (0.0-0.7); #Monocytes 0.7 thou/uL (0.11-0.59); #Neutrophils 7.6 thou/uL (1.40-6.50); %Basophils 0.5 % (0.0-1.0); %Lymphocytes 17.3 % (21.0-51.0); %Monocytes 6.7 % (0.0-10.0); %Neutrophils 74.1 % (42.0-75.0); Hemoglobin 14.5 g/dL (14.0-18.0); Mean Corpuscular HGB CONC 36.5 g/dL (32.0-36.0); Mean Corpuscular Hemoglobin 31.4 pg (27.0-31.0); Mean Corpuscular Volume 85.9 fl (78.0-98.0); Mean Platelet Volume 9.3 fL (7.4-10.4); Platelet Count 147 10x3/uL (130-400); RBC Distribution Width 12.6 % (11.5-14.5); Red Blood Cell (RBC) Count 4.62 mill/uL (4.70-6.10); White Blood Cell (WBC) Count 10.3 10x3/uL (4.8-10.8)
[2022-09-13 00:45] LABS: ALT (SGPT) 11 U/L (8-55); AST (SGOT) 17 U/L (5-34); Alkaline Phosphatase 63 U/L (40-110); Anion Gap 11 mmol/L (10-20); BUN (Urea Nitrogen) 13 mg/dL (8.4-25.7); Bilirubin, Total 1.1 mg/dL (0.2-1.2); Calc. Creatinine Clearance 0 mL/min (70-130); Calcium 9.1 mg/dL (7.8-10.44); Carbon Dioxide 26 mmol/L (23-31); Chloride 89 mmol/L (98-107); Estimated GFR 104; Globulin 2.2 g/dL (2.4-3.5); Glucose 105 mg/dL (80-115); Magnesium 1.4 mg/dL (1.6-2.6); Potassium 3.7 mmol/L (3.5-5.1); Protein, Total 6.2 g/dL (5.8-8.1); Sodium 122 mmol/L (136-145)
[2022-09-13] MEDS ORDERED: fentaNYL 50 mcg/mL 1 mL Vial ONE (01:09)
[2022-09-13] MEDS ORDERED: Magnesium 2 GM/50 ML BAG (IN WATER) ONE (01:09)
[2022-09-13 01:42] LABS: Bacteria/HPF None Seen HPF (None Seen); Bilirubin Negative (Negative); Blood, Urine Trace (Negative); CAUTI Indications for Culture Pelvic or flank pain; Clarity Clear (Clear); Glucose, Urine (Dipstick) 500 mg/dL (Negative); Ketone, Urine Negative (Negative); Leukocyte 75 Leu/uL (Negative); Nitrite Negative (Negative); Protein, Urine (Dipstick) Negative (Neg-Trace); RBC/HPF 0-3 HPF (0-3); Specific Gravity, Urine 1.002 (1.002-1.036); Squamous Epithelial None Seen HPF (0-3); Urobilinogen Normal mg/dL (Less than 2); WBC/HPF 0-3 HPF (0-3); pH, Urine 6.5 (5.0-9.0)
[2022-09-13] MEDS ORDERED: Ondansetron ODT 4 MG TAB SL PRN (02:30)
[2022-09-13] MEDS ORDERED: Acetaminophen 325 MG TAB PO PRN (02:30)
[2022-09-13] MEDS ORDERED: Ondansetron PF 4 MG/2 ML Vial IVP PRN (02:30)
[2022-09-13 02:43] LABS: Urine Culture Reflex No No
[2022-09-13 02:44] VITALS: BMI 36.4
[2022-09-13] MEDS ORDERED: Sodium Chloride 0.9% 1,000 ML IV SCH (05:00)
[2022-09-13 07:39] LABS: Creatinine, Urine Less than 20.00 mg/dL (63-166); Sodium, Urine 21 mmol/L (Not Available)
[2022-09-13 08:03] LABS: Anion Gap 14 mmol/L (10-20); BUN (Urea Nitrogen) 13 mg/dL (8.4-25.7); Calc. Creatinine Clearance 148 mL/min (70-130); Calcium 9.5 mg/dL (7.8-10.44); Carbon Dioxide 26 mmol/L (23-31); Chloride 99 mmol/L (98-107); Estimated GFR 102; Glucose 140 mg/dL (80-115); Sodium 135 mmol/L (136-145)
[2022-09-13] MEDS ORDERED: Dextrose 5% in Water 1,000 ML IV SCH (08:30)
[2022-09-13] MEDS ORDERED: HumaLOG 300 UNITS/3 ML VIAL SC PRN ×2 (08:55)
[2022-09-13] MEDS ORDERED: Dextrose 50% Abboject 50 ML SYRINGE SLOW IVP PRN (08:55)
[2022-09-13] MEDS ORDERED: Dextrose 5% in Water 1,000 ML IV PRN (08:55)
[2022-09-13] MEDS ORDERED: Glucagon 1 MG/ML KIT IM PRN (08:55)
[2022-09-13] MEDS ORDERED: Aspirin Chewable 81 MG TAB PO SCH (09:00)
[2022-09-13 09:48] LABS: Anion Gap 14 mmol/L (10-20); BUN (Urea Nitrogen) 13 mg/dL (8.4-25.7); Calc. Creatinine Clearance 142 mL/min (70-130); Calcium 9.8 mg/dL (7.8-10.44); Carbon Dioxide 25 mmol/L (23-31); Chloride 101 mmol/L (98-107); Estimated GFR 101; Glucose 198 mg/dL (80-115); Potassium 4.4 mmol/L (3.5-5.1); Sodium 136 mmol/L (136-145)
[2022-09-13 12:46] LABS: Anion Gap 13 mmol/L (10-20); BUN (Urea Nitrogen) 12 mg/dL (8.4-25.7); Calc. Creatinine Clearance 148 mL/min (70-130); Calcium 9.6 mg/dL (7.8-10.44); Carbon Dioxide 27 mmol/L (23-31); Chloride 101 mmol/L (98-107); Estimated GFR 102; Glucose 200 mg/dL (80-115); Potassium 4.6 mmol/L (3.5-5.1); Sodium 136 mmol/L (136-145)
[2022-09-13 14:54] LABS: Anion Gap 6 mmol/L (10-20); BUN (Urea Nitrogen) 13 mg/dL (8.4-25.7); Calc. Creatinine Clearance 123 mL/min (70-130); Calcium 9.4 mg/dL (7.8-10.44); Carbon Dioxide 27 mmol/L (23-31); Chloride 103 mmol/L (98-107); Estimated GFR 97; Glucose 209 mg/dL (80-115); Potassium 4.4 mmol/L (3.5-5.1); Sodium 132 mmol/L (136-145)
[2022-09-13 15:14] VITALS: BP 133/68; TEMP 97.9
[2022-09-13] MEDS ORDERED: Atorvastatin Calcium 20 MG TAB PO SCH (21:00)
[2022-09-13] MEDS ORDERED: Sertraline 100 MG TAB PO SCH (21:00)
[2022-09-13] MEDS ORDERED: traZODone HCl 50 MG TAB PO SCH (21:00)
== END 2022-09-13 15:45 | disposition home or self-care (01) ==
LOC: ERS 23:56 → ERHOLD 09-13 02:11 → 2NO 09-13 05:05
PROVIDERS: ADMIT Hospitalist; ATTEND Family Medicine
DX: E87.1 Hypo-osmolality and hyponatremia (principal); R53.1 Weakness; E03.9 Hypothyroidism, unspecified; I10 Essential (primary) hypertension; E11.9 Type 2 diabetes mellitus without complications; G47.00 Insomnia, unspecified; F39 Unspecified mood [affective] disorder; B19.20 Unspecified viral hepatitis C without hepatic coma; E78.5 Hyperlipidemia, unspecified; Z79.82 Long term (current) use of aspirin; Z79.899 Other long term (current) drug therapy; Z79.84 Long term (current) use of oral hypoglycemic drugs; Z79.4 Long term (current) use of insulin; Z79.890 Hormone replacement therapy
CPT/HCPCS: 36415; 36416; 80053; 81001; 82570; 83735; 83930; 83935; 84300; 84443; 84484; 85025; 93005; J2597; J3010; J3475; J7050; J7070

== ENCOUNTER 2022-09-14 13:24 | Inpatient (IN) | payer OTHER ==
[2022-09-14] MEDS ORDERED: Acetaminophen 500 MG TAB ONE (14:47)
[2022-09-14 14:56] LABS: #Eosinphils 0.1 thou/uL (0.0-0.7); #Monocytes 0.7 thou/uL (0.11-0.59); #Neutrophils 7.9 thou/uL (1.40-6.50); %Basophils 0.3 % (0.0-1.0); %Eosinophils 1.3 % (0.0-10.0); %Lymphocytes 13.5 % (21.0-51.0); %Monocytes 6.8 % (0.0-10.0); %Neutrophils 77.7 % (42.0-75.0); Hemoglobin 15.3 g/dL (14.0-18.0); Mean Corpuscular HGB CONC 35.1 g/dL (32.0-36.0); Mean Corpuscular Hemoglobin 30.8 pg (27.0-31.0); Mean Corpuscular Volume 87.7 fl (78.0-98.0); Mean Platelet Volume 9.6 fL (7.4-10.4); Platelet Count 175 10x3/uL (130-400); RBC Distribution Width 12.6 % (11.5-14.5); Red Blood Cell (RBC) Count 4.97 mill/uL (4.70-6.10); White Blood Cell (WBC) Count 10.2 10x3/uL (4.8-10.8)
[2022-09-14 15:21] LABS: ALT (SGPT) 13 U/L (8-55); AST (SGOT) 16 U/L (5-34); Alkaline Phosphatase 74 U/L (40-110); Anion Gap 12 mmol/L (10-20); BUN (Urea Nitrogen) 8 mg/dL (8.4-25.7); Bilirubin, Total 0.5 mg/dL (0.2-1.2); CK (CPK) 81 U/L (30-200); Calc. Creatinine Clearance 0 mL/min (70-130); Calcium 8.5 mg/dL (7.8-10.44); Carbon Dioxide 26 mmol/L (23-31); Chloride 87 mmol/L (98-107); Estimated GFR 107; Globulin 2.5 g/dL (2.4-3.5); Glucose 118 mg/dL (80-115); Magnesium 1.9 mg/dL (1.6-2.6); Potassium 4.3 mmol/L (3.5-5.1); Protein, Total 6.5 g/dL (5.8-8.1); Sodium 121 mmol/L (136-145)
[2022-09-14] MEDS ORDERED: LORazepam 2 MG/ML SYR.(CARPUJECT) ONE (15:34)
[2022-09-14] MEDS ORDERED: Acetaminophen 650 MG Suppository PR PRN (18:02)
[2022-09-14] MEDS ORDERED: Acetaminophen 325 MG TAB PO PRN (18:02)
[2022-09-14] MEDS ORDERED: Ondansetron PF 4 MG/2 ML Vial IVP PRN (18:02)
[2022-09-14] MEDS ORDERED: Ondansetron ODT 4 MG TAB PO PRN (18:02)
[2022-09-14 18:18] LABS: Anion Gap 10 mmol/L (10-20); BUN (Urea Nitrogen) 7 mg/dL (8.4-25.7); Calc. Creatinine Clearance 0 mL/min (70-130); Calcium 8.6 mg/dL (7.8-10.44); Carbon Dioxide 24 mmol/L (23-31); Chloride 90 mmol/L (98-107); Estimated GFR 107; Glucose 115 mg/dL (80-115); Potassium 4.4 mmol/L (3.5-5.1); Sodium 120 mmol/L (136-145)
[2022-09-14 18:24] LABS: Bacteria/HPF None Seen HPF (None Seen); Bilirubin Negative (Negative); Blood, Urine Negative (Negative); Clarity Clear (Clear); Glucose, Urine (Dipstick) Greater than 1000 mg/dL (Negative); Ketone, Urine Negative (Negative); Leukocyte 250 Leu/uL (Negative); Nitrite Negative (Negative); Protein, Urine (Dipstick) Negative (Neg-Trace); RBC/HPF 0-3 HPF (0-3); Specific Gravity, Urine 1.003 (1.002-1.036); Squamous Epithelial None Seen HPF (0-3); Urobilinogen Normal mg/dL (Less than 2); WBC/HPF 21-50 HPF (0-3); pH, Urine 7.5 (5.0-9.0)
[2022-09-14] MEDS ORDERED: HumaLOG 300 UNITS/3 ML VIAL SC PRN ×2 (18:25)
[2022-09-14] MEDS ORDERED: Dextrose 5% in Water 1,000 ML IV PRN (18:25)
[2022-09-14] MEDS ORDERED: Dextrose 50% Abboject 50 ML SYRINGE SLOW IVP PRN (18:25)
[2022-09-14] MEDS ORDERED: Glucagon 1 MG/ML KIT IM PRN (18:25)
[2022-09-14] MEDS ORDERED: Melatonin 3 MG TAB PO PRN (18:27)
[2022-09-14] MEDS ORDERED: Morphine 4 MG/ML VIAL ONE (18:28)
[2022-09-14] MEDS ORDERED: Albuterol 200 PUFF (6.7GM INHALER) INH PRN (18:30)
[2022-09-14 20:15] VITALS: BMI 36.4
[2022-09-14] MEDS ORDERED: Atorvastatin Calcium 40 MG TAB PO SCH (21:00)
[2022-09-14] MEDS: Sodium Chloride 1 GM TAB PO SCH (21:22)
[2022-09-14] MEDS ORDERED: Cyclobenzaprine 10 MG TAB PO PRN (21:58)
[2022-09-14] MEDS ORDERED: Non-Formulary Item 1 EACH (Melatonin [Melatonin] 5 MG Tablet) PO PRN (21:58)
[2022-09-14 22:10] LABS: Anion Gap 10 mmol/L (10-20); BUN (Urea Nitrogen) 7 mg/dL (8.4-25.7); Calc. Creatinine Clearance 150 mL/min (70-130); Calcium 8.8 mg/dL (7.8-10.44); Carbon Dioxide 28 mmol/L (23-31); Chloride 90 mmol/L (98-107); Estimated GFR 103; Glucose 192 mg/dL (80-115); Potassium 4.5 mmol/L (3.5-5.1); Sodium 123 mmol/L (136-145)
[2022-09-14] MEDS ORDERED: traZODone HCl 150 MG TAB PO SCH (22:15)
[2022-09-14] MEDS ORDERED: Pramipexole Di-HCl 0.125 MG TAB PO SCH (22:15)
[2022-09-14] MEDS ORDERED: Acetaminophen/Codeine 30-300mg Tablet PO PRN (22:46)
[2022-09-15 01:52] LABS: Anion Gap 12 mmol/L (10-20); BUN (Urea Nitrogen) 8 mg/dL (8.4-25.7); Calc. Creatinine Clearance 161 mL/min (70-130); Calcium 8.5 mg/dL (7.8-10.44); Carbon Dioxide 23 mmol/L (23-31); Chloride 94 mmol/L (98-107); Estimated GFR 105; Glucose 151 mg/dL (80-115); Sodium 125 mmol/L (136-145)
[2022-09-15 05:24] LABS: #Eosinphils 0.1 thou/uL (0.0-0.7); #Monocytes 0.5 thou/uL (0.11-0.59); #Neutrophils 4.7 thou/uL (1.40-6.50); %Basophils 0.4 % (0.0-1.0); %Eosinophils 1.9 % (0.0-10.0); %Lymphocytes 22.5 % (21.0-51.0); %Monocytes 7.8 % (0.0-10.0); %Neutrophils 67.1 % (42.0-75.0); Hemoglobin 14.5 g/dL (14.0-18.0); Mean Corpuscular HGB CONC 35.6 g/dL (32.0-36.0); Mean Corpuscular Hemoglobin 30.8 pg (27.0-31.0); Mean Corpuscular Volume 86.4 fl (78.0-98.0); Mean Platelet Volume 9.4 fL (7.4-10.4); Platelet Count 170 10x3/uL (130-400); RBC Distribution Width 12.5 % (11.5-14.5); Red Blood Cell (RBC) Count 4.71 mill/uL (4.70-6.10); White Blood Cell (WBC) Count 6.9 10x3/uL (4.8-10.8)
[2022-09-15 05:53] LABS: Anion Gap 11 mmol/L (10-20); BUN (Urea Nitrogen) 8 mg/dL (8.4-25.7); Calc. Creatinine Clearance 154 mL/min (70-130); Calcium 8.4 mg/dL (7.8-10.44); Carbon Dioxide 25 mmol/L (23-31); Chloride 94 mmol/L (98-107); Estimated GFR 104; Glucose 179 mg/dL (80-115); Potassium 3.9 mmol/L (3.5-5.1); Sodium 126 mmol/L (136-145)
[2022-09-15] MEDS: Sodium Chloride 1 GM TAB PO SCH (06:22)
[2022-09-15] MEDS ORDERED: Aspirin Chewable 81 MG TAB PO SCH (09:00)
[2022-09-15] MEDS ORDERED: Gabapentin 300 MG CAP PO SCH (09:00)
[2022-09-15 10:56] VITALS: BP 114/82; TEMP 98.4
[2022-09-15] MEDS ORDERED: Pramipexole Di-HCl 0.125 MG TAB PO SCH (21:00)
[2022-09-15] MEDS ORDERED: traZODone HCl 50 MG TAB PO SCH (21:00)
== END 2022-09-15 09:10 | disposition left against medical advice (07) | DRG 641 ==
LOC: ERS 13:24 → 2NO 16:42
PROVIDERS: ADMIT Internal Medicine; ATTEND Internal Medicine
DX: E87.1 Hypo-osmolality and hyponatremia (principal); E78.00 Pure hypercholesterolemia, unspecified; I10 Essential (primary) hypertension; E03.9 Hypothyroidism, unspecified; E11.42 Type 2 diabetes mellitus with diabetic polyneuropathy; F41.9 Anxiety disorder, unspecified; G47.33 Obstructive sleep apnea (adult) (pediatric); M19.90 Unspecified osteoarthritis, unspecified site; J44.9 Chronic obstructive pulmonary disease, unspecified; Z98.890 Other specified postprocedural states; F17.290 Nicotine dependence, other tobacco product, uncomplicated; B19.20 Unspecified viral hepatitis C without hepatic coma; Z79.4 Long term (current) use of insulin; Z79.899 Other long term (current) drug therapy; G47.00 Insomnia, unspecified; Z71.6 Tobacco abuse counseling; E78.5 Hyperlipidemia, unspecified; Z79.82 Long term (current) use of aspirin; Z79.84 Long term (current) use of oral hypoglycemic drugs; Z79.890 Hormone replacement therapy
CPT/HCPCS: 36415; 36416; 70450; 80048; 80053; 81001; 82550; 82570; 83735; 83930; 83935; 84300; 84443; 84484; 85025; 93005; 96365; 96374; 96375; J1815; J2060; J2270; J2597; J3010; J3475; J7050; J7070

== ENCOUNTER 2022-09-20 10:54 | Outpatient (CLI) | payer OTHER ==
[2022-09-20 12:30] LABS: Hemoglobin 16.4 g/dL (13.5-17.5); Mean Corpuscular Hemoglobin 30.8 pg (27.0-33.0); Mean Corpuscular Volume 87.8 fl (81.2-95.1); Mean Platelet Volume 9.6 fl (7.4-10.4); Platelet Count 244 10x3/uL (150-450); RBC Distribution Width 13.2 % (11.5-14.5); Red Blood Cell (RBC) Count 5.33 10x6/uL (4.32-5.72)
[2022-09-20 12:54] LABS: Anion Gap 16 mmol/L (10-20); BUN (Urea Nitrogen) 14 mg/dL (8.4-25.7); Calc. Creatinine Clearance 0 mL/min (70-130); Calcium 9.6 mg/dL (7.8-10.44); Carbon Dioxide 28 mmol/L (23-31); Chloride 96 mmol/L (98-107); Estimated GFR 100; Glucose 143 mg/dL (80-115); Potassium 4.6 mmol/L (3.5-5.1); Sodium 135 mmol/L (136-145)
== END 2022-09-20 10:55 | disposition home or self-care (01) ==
LOC: LABBT 10:54
PROVIDERS: ATTEND Neurological Surgery
DX: Z01.812 Encounter for preprocedural laboratory examination (principal); M54.12 Radiculopathy, cervical region
CPT/HCPCS: 80048; 85027

== ENCOUNTER 2022-09-25 06:21 | Day surgery (SDC) | payer OTHER ==
[2022-09-20 11:58] VITALS: BMI 36.2
[2022-09-25] MEDS ORDERED: Thrombin 5000 UNITS/5 ML VIAL ONE (06:25)
[2022-09-25] MEDS ORDERED: CEFAZOLIN 2 GM VIAL ONE ×2 (06:54→12:46)
[2022-09-25] MEDS ORDERED: Sodium Chloride 0.9% 100 ML ONE ×2 (06:54→12:46)
[2022-09-25] MEDS ORDERED: Lidocaine 1% MPF 2 ML VIAL ONE (06:54)
[2022-09-25] MEDS ORDERED: fentaNYL PF 100 MCG/2 ML SYRINGE ONE (07:07)
[2022-09-25] MEDS ORDERED: Midazolam HCl 2 mg/2 ml Vial ONE (07:43)
[2022-09-25] MEDS ORDERED: Glycopyrrolate 0.2 MG/ML 5 ML SYRINGE ONE (07:56)
[2022-09-25] MEDS ORDERED: Albuterol HFA (OR) 200 PUFF INH ONE (07:56)
[2022-09-25] MEDS ORDERED: Ondansetron PF 4 MG/2 ML Vial ONE (07:56)
[2022-09-25] MEDS ORDERED: Dexamethasone 20 MG/5 ML VIAL ONE (07:56)
[2022-09-25] MEDS ORDERED: Rocuronium Bromide 10 MG/ML (10ML VIAL) ONE (07:56)
[2022-09-25] MEDS ORDERED: NEOSTIGMINE 3 MG/3 ML SYR 3 MG/3 ML SYRINGE ONE (07:56)
[2022-09-25] MEDS ORDERED: PROPOFOL 200 MG/20 ML VIAL ONE (07:56)
[2022-09-25] MEDS ORDERED: Lidocaine 1% PF 5 ML VIAL ONE (07:56)
[2022-09-25] MEDS ORDERED: Promethazine HCl 25 MG/ML VIAL IM PRN (09:25)
[2022-09-25] MEDS ORDERED: PACU-Morphine 4MG/ML VIAL SLOW IVP PRN (09:25)
[2022-09-25] MEDS ORDERED: HYDROmorphone 2 MG/ML VIAL SLOW IVP PRN (09:25)
[2022-09-25] MEDS ORDERED: Morphine Sulfate 2 MG/ML SYRINGE SLOW IVP PRN (09:25)
[2022-09-25] MEDS ORDERED: Ondansetron HCl/PF 4 MG/2 ML Vial IVP PRN (09:25)
[2022-09-25] MEDS ORDERED: fentaNYL 50 mcg/mL 1 mL Vial ONE ×2 (10:32→11:42)
[2022-09-25] MEDS ORDERED: Tamsulosin HCl 0.4 MG CAP ONE (11:48)
[2022-09-25] MEDS ORDERED: HYDROmorphone 0.5 MG/0.5 ML SYRINGE ONE ×2 (12:00→12:10)
[2022-09-25] MEDS ORDERED: HYDROcodone/Acetaminophen 5/325 mg Tablet ONE (13:10)
== END 2022-09-25 13:40 | disposition home or self-care (01) ==
LOC: SDC 06:21
PROVIDERS: ATTEND Neurological Surgery
PROC: 0RG20A0 Fusion of 2 or more Cervical Vertebral Joints with Interbody Fusion Device, Anterior Approach, Anterior Column, Open Approach (ICD-10-PCS; principal; 2022-09-25)
DX: M54.12 Radiculopathy, cervical region (principal); E78.5 Hyperlipidemia, unspecified; F32.A Depression, unspecified; E11.9 Type 2 diabetes mellitus without complications; F41.9 Anxiety disorder, unspecified; Z98.890 Other specified postprocedural states; F17.200 Nicotine dependence, unspecified, uncomplicated; Z79.899 Other long term (current) drug therapy
CPT/HCPCS: 36416; C1713; C1889; J1100; J1170; J2250; J2405; J2704; J3010; J3490

== ENCOUNTER 2022-10-01 17:33 | Emergency (ER) | payer OTHER ==
[2022-10-01] MEDS ORDERED: Morphine 4 MG/ML VIAL ONE (18:12)
== END 2022-10-01 19:50 | disposition home or self-care (01) ==
LOC: ERS 17:33
DX: M54.2 Cervicalgia (principal); E03.9 Hypothyroidism, unspecified; I10 Essential (primary) hypertension; E78.00 Pure hypercholesterolemia, unspecified; E66.9 Obesity, unspecified; E11.9 Type 2 diabetes mellitus without complications; Z79.899 Other long term (current) drug therapy; Z79.84 Long term (current) use of oral hypoglycemic drugs
CPT/HCPCS: 72125; 96374; J2270

== ENCOUNTER 2022-10-21 21:47 | Emergency (ER) | payer OTHER ==
[2022-10-21] MEDS ORDERED: Ondansetron ODT 4 MG TAB ONE (22:50)
[2022-10-21] MEDS ORDERED: Morphine 4 MG/ML VIAL ONE (23:03)
[2022-10-21] MEDS ORDERED: Morphine 2 MG/ML VIAL ONE (23:03)
== END 2022-10-22 00:29 | disposition home or self-care (01) ==
LOC: ERS 21:47
DX: S16.1XXA Strain of muscle, fascia and tendon at neck level, initial encounter (principal); S46.811A Strain of other muscles, fascia and tendons at shoulder and upper arm level, right arm, initial encounter; E11.9 Type 2 diabetes mellitus without complications; E03.9 Hypothyroidism, unspecified; E78.00 Pure hypercholesterolemia, unspecified; I10 Essential (primary) hypertension; F17.210 Nicotine dependence, cigarettes, uncomplicated; Z79.84 Long term (current) use of oral hypoglycemic drugs; Z79.899 Other long term (current) drug therapy
CPT/HCPCS: 72125; 96372; J2270; J2272; Q0162

== ENCOUNTER 2022-12-06 22:12 | Emergency (ER) | payer OTHER | END 2022-12-06 22:52 | disposition left against medical advice (07) | LOC: ERS 22:12 | DX: Z53.21 Procedure and treatment not carried out due to patient leaving prior to being seen by health care provider (principal) ==

== ENCOUNTER 2023-01-05 16:29 | Inpatient (IN) | payer OTHER, MEDICARE ==
[~2023-01-05 16:29] MED LIST changes: -Iopamidol-370 76% 500 ML 1 ML ONE; +Iopamidol-370 76% 500 ML MDV (1 ML CHARGE) ONE
[2023-01-05 18:19] LABS: #Eosinphils 0.2 thou/uL (0.0-0.7); #Monocytes 0.6 thou/uL (0.11-0.59); #Neutrophils 5.9 thou/uL (1.40-6.50); %Basophils 0.5 % (0.0-1.0); %Lymphocytes 19.9 % (21.0-51.0); %Monocytes 7.3 % (0.0-10.0); %Neutrophils 69.8 % (42.0-75.0); Hematocrit 44.6 % (42.0-52.0); Hemoglobin 16.1 g/dL (14.0-18.0); Mean Corpuscular HGB CONC 36.1 g/dL (32.0-36.0); Mean Corpuscular Hemoglobin 31.4 pg (27.0-31.0); Mean Corpuscular Volume 87.1 fl (78.0-98.0); Mean Platelet Volume 10.2 fL (7.4-10.4); Platelet Count 132 10x3/uL (130-400); RBC Distribution Width 12.5 % (11.5-14.5); Red Blood Cell (RBC) Count 5.12 mill/uL (4.70-6.10); White Blood Cell (WBC) Count 8.4 10x3/uL (4.8-10.8)
[2023-01-05 18:31] LABS: Bacteria/HPF None Seen HPF (None Seen); Bilirubin Negative (Negative); Blood, Urine Negative (Negative); CAUTI Indications for Culture Acute Hematuria; Clarity Clear (Clear); Glucose, Urine (Dipstick) 50 mg/dL (Negative); Ketone, Urine Negative (Negative); Leukocyte Negative Leu/uL (Negative); Nitrite Negative (Negative); Protein, Urine (Dipstick) Negative (Neg-Trace); RBC/HPF 0-3 HPF (0-3); Specific Gravity, Urine 1.002 (1.002-1.036); Squamous Epithelial None Seen HPF (0-3); Urobilinogen Normal mg/dL (Less than 2); WBC/HPF 0-3 HPF (0-3); pH, Urine 7.5 (5.0-9.0)
[2023-01-05 18:35] LABS: Urine Culture Reflex No No
[2023-01-05 18:39] LABS: ALT (SGPT) 13 U/L (8-55); AST (SGOT) 22 U/L (5-34); Albumin 4.1 g/dL (3.4-4.8); Alkaline Phosphatase 56 U/L (40-110); Anion Gap 11 mmol/L (10-20); BUN (Urea Nitrogen) 8 mg/dL (8.4-25.7); Bilirubin, Total 0.9 mg/dL (0.2-1.2); Calc. Creatinine Clearance 0 mL/min (70-130); Calcium 8.3 mg/dL (7.8-10.44); Carbon Dioxide 25 mmol/L (23-31); Chloride 88 mmol/L (98-107); Estimated GFR 106; Globulin 2.7 g/dL (2.4-3.5); Glucose 128 mg/dL (80-115); Lipase 10 U/L (8-78); Potassium 4.4 mmol/L (3.5-5.1); Protein, Total 6.8 g/dL (5.8-8.1); Sodium 120 mmol/L (136-145)
[2023-01-05] MEDS ORDERED: Acetaminophen 500 MG TAB ONE (21:59)
[2023-01-06] MEDS ORDERED: Sodium Chloride 1 GM TAB PO SCH (00:15)
[2023-01-06] MEDS ORDERED: Sodium Chloride 0.9% 100 ML ONE ×2 (00:18→14:05)
[2023-01-06] MEDS ORDERED: Piperacillin/Tazobactam 3.375 GM VIAL ONE ×2 (00:19→14:05)
[2023-01-06 00:59] VITALS: BMI 31.6
[2023-01-06] MEDS ORDERED: Dextrose 50% Abboject 50 ML SYRINGE SLOW IVP PRN (01:59)
[2023-01-06] MEDS ORDERED: Glucagon 1 MG/ML KIT IM PRN (01:59)
[2023-01-06] MEDS ORDERED: HumaLOG 300 UNITS/3 ML VIAL SC PRN ×2 (01:59)
[2023-01-06] MEDS ORDERED: Dextrose 5% in Water 1,000 ML IV PRN (01:59)
[2023-01-06] MEDS ORDERED: Acetaminophen 325 MG TAB PO PRN (02:00)
[2023-01-06] MEDS ORDERED: Ondansetron ODT 4 MG TAB PO PRN (02:00)
[2023-01-06] MEDS ORDERED: Ondansetron PF 4 MG/2 ML Vial IVP PRN (02:00)
[2023-01-06] MEDS ORDERED: Melatonin 3 MG TAB PO PRN (02:02)
[2023-01-06] MEDS: Piperacillin/Tazobactam 3.375 GM in Sodium Chloride 0.9% 100 ML IVPB SCH ×3 (04:07→20:41)
[2023-01-06 05:45] LABS: #Basophils 0.1 thou/uL (0.0-0.2); #Eosinphils 0.2 thou/uL (0.0-0.7); #Monocytes 0.7 thou/uL (0.11-0.59); #Neutrophils 6.3 thou/uL (1.40-6.50); %Basophils 0.6 % (0.0-1.0); %Eosinophils 1.7 % (0.0-10.0); %Lymphocytes 18.1 % (21.0-51.0); %Monocytes 7.9 % (0.0-10.0); %Neutrophils 71.4 % (42.0-75.0); Hematocrit 45.6 % (42.0-52.0); Hemoglobin 15.9 g/dL (14.0-18.0); Mean Corpuscular HGB CONC 34.9 g/dL (32.0-36.0); Mean Corpuscular Hemoglobin 30.5 pg (27.0-31.0); Mean Corpuscular Volume 87.5 fl (78.0-98.0); Mean Platelet Volume 10.6 fL (7.4-10.4); Platelet Count 157 10x3/uL (130-400); RBC Distribution Width 12.4 % (11.5-14.5); Red Blood Cell (RBC) Count 5.21 mill/uL (4.70-6.10); White Blood Cell (WBC) Count 8.8 10x3/uL (4.8-10.8)
[2023-01-06 06:39] LABS: ALT (SGPT) 13 U/L (8-55); AST (SGOT) 17 U/L (5-34); Albumin 4.2 g/dL (3.4-4.8); Alkaline Phosphatase 61 U/L (40-110); Anion Gap 13 mmol/L (10-20); BUN (Urea Nitrogen) 8 mg/dL (8.4-25.7); Bilirubin, Total 1.1 mg/dL (0.2-1.2); Calc. Creatinine Clearance 153 mL/min (70-130); Calcium 8.7 mg/dL (7.8-10.44); Carbon Dioxide 25 mmol/L (23-31); Chloride 99 mmol/L (98-107); Estimated GFR 102; Globulin 2.4 g/dL (2.4-3.5); Glucose 220 mg/dL (80-115); Protein, Total 6.6 g/dL (5.8-8.1); Sodium 133 mmol/L (136-145)
[2023-01-06] MEDS ORDERED: traMADol HCl 50 MG TAB PO PRN (07:44)
[2023-01-06] MEDS ORDERED: Cyclobenzaprine 10 MG TAB PO PRN ×2 (07:44→18:56)
[2023-01-06] MEDS ORDERED: Acetaminophen 325 MG TAB PO SCH (07:48)
[2023-01-06] MEDS: metFORMIN XR 500 MG ER.TAB PO SCH (08:00)
[2023-01-06 08:08] LABS: INR-International Normal Ratio 1.3; PTT 27.6 sec (22.9-36.1); Prothrombin Time 16.3 sec (12.0-14.7)
[2023-01-06] MEDS ORDERED: Empagliflozin 25 MG TAB PO SCH (09:00)
[2023-01-06] MEDS: Lisinopril 20 MG TAB PO SCH (09:00)
[2023-01-06] MEDS: Gabapentin 300 MG CAP PO SCH ×2 (09:00→14:08)
[2023-01-06] MEDS: Insulin Glargine 30 UNITS/0.3 ML VIAL SC SCH ×2 (09:00→20:37)
[2023-01-06] MEDS: Famotidine 20 MG TAB PO SCH ×2 (09:00→20:31)
[2023-01-06] MEDS ORDERED: fentaNYL PF 100 MCG/2 ML SYRINGE ONE ×2 (09:27→13:18)
[2023-01-06] MEDS ORDERED: Midazolam HCl 2 mg/2 ml Vial ONE (09:27)
[2023-01-06] MEDS ORDERED: PROPOFOL 20 ML ONE (09:27)
[2023-01-06] MEDS ORDERED: EPINEPHrine 1 MG/ML VIAL ONE (09:29)
[2023-01-06] MEDS ORDERED: Iopamidol 15 ML ONE (09:29)
[2023-01-06] MEDS ORDERED: Bupivacaine 0.25% HCL 30 ML VIAL ONE (09:29)
[2023-01-06] MEDS ORDERED: Dexamethasone 20 MG/5 ML VIAL ONE ×2 (09:42→09:48)
[2023-01-06] MEDS ORDERED: Rocuronium Bromide 10 MG/ML (10ML VIAL) ONE ×2 (09:42→09:48)
[2023-01-06] MEDS ORDERED: Ondansetron PF 4 MG/2 ML Vial ONE ×2 (09:42→09:48)
[2023-01-06] MEDS ORDERED: Lidocaine 1% PF 5 ML VIAL ONE ×2 (09:42→09:48)
[2023-01-06] MEDS ORDERED: Glycopyrrolate 0.2 MG/ML 5 ML SYRINGE ONE ×2 (09:48→11:05)
[2023-01-06] MEDS ORDERED: ePHEDrine Sulfate 50 MG/10 ML VIAL ONE ×2 (09:48→10:07)
[2023-01-06] MEDS ORDERED: Ketorolac Tromethamine 30 MG/ML VIAL ONE ×2 (09:48→14:10)
[2023-01-06] MEDS ORDERED: NEOSTIGMINE 3 MG/3 ML SYR 3 MG/3 ML SYRINGE ONE ×2 (09:48→11:05)
[2023-01-06] MEDS ORDERED: PROPOFOL 200 MG/20 ML VIAL ONE (09:48)
[2023-01-06] MEDS ORDERED: Sterile Water 10 ML ONE (10:12)
[2023-01-06] MEDS ORDERED: CEFAZOLIN 1 GM VIAL ONE (10:12)
[2023-01-06] MEDS ORDERED: Ondansetron HCl/PF 4 MG/2 ML Vial IVP PRN (11:40)
[2023-01-06] MEDS ORDERED: fentaNYL 50 mcg/mL 1 mL Vial ONE ×4 (12:18→18:46)
[2023-01-06] MEDS: Famotidine/PF 20 mg/2ml Vial SLOW IVP SCH (13:03)
[2023-01-06] MEDS ORDERED: Gabapentin 300 MG CAP ONE (14:06)
[2023-01-06] MEDS: Ketorolac Tromethamine 30 MG/ML VIAL IVP SCH ×2 (14:11→20:38)
[2023-01-06] MEDS: Dextrose 5% in Water 1,000 ML IV SCH ×2 (14:14→16:19)
[2023-01-06] MEDS: Acetaminophen 325 MG TAB PO SCH ×2 (14:14→20:33)
[2023-01-06] MEDS: traMADol HCl 50 MG TAB PO SCH ×2 (14:15→20:31)
[2023-01-06 15:18] LABS: Sodium 137 mmol/L (136-145)
[2023-01-06 15:25] LABS: Anion Gap 14 mmol/L (10-20); BUN (Urea Nitrogen) 10 mg/dL (8.4-25.7); Calc. Creatinine Clearance 133 mL/min (70-130); Calcium 8.8 mg/dL (7.8-10.44); Carbon Dioxide 24 mmol/L (23-31); Chloride 103 mmol/L (98-107); Estimated GFR 98; Glucose 214 mg/dL (80-115); Potassium 4.2 mmol/L (3.5-5.1); Sodium 137 mmol/L (136-145)
[2023-01-06] MEDS ORDERED: Diazepam 5 MG TAB ONE (18:23)
[2023-01-06] MEDS ORDERED: Diazepam 5 MG TAB PO PRN (18:56)
[2023-01-06] MEDS ORDERED: Non-Formulary Item 1 EACH (Acetaminophen With Codeine [Acetaminophen-Cod #4 Tablet] 1 EAC PO PRN (18:56)
[2023-01-06] MEDS: Trospium 20 MG TAB PO SCH (20:30)
[2023-01-06] MEDS ORDERED: Pramipexole Di-HCl 0.125 MG TAB PO SCH (21:00)
[2023-01-06] MEDS ORDERED: traZODone HCl 50 MG TAB PO SCH (21:00)
[2023-01-06] MEDS ORDERED: Atorvastatin Calcium 20 MG TAB PO SCH (21:00)
[2023-01-06] MEDS ORDERED: Sertraline 100 MG TAB PO SCH (21:00)
[2023-01-06 21:22] LABS: Sodium 133 mmol/L (136-145)
[2023-01-06 21:26] LABS: Anion Gap 14 mmol/L (10-20); BUN (Urea Nitrogen) 11 mg/dL (8.4-25.7); Calc. Creatinine Clearance 128 mL/min (70-130); Calcium 8.8 mg/dL (7.8-10.44); Carbon Dioxide 23 mmol/L (23-31); Chloride 102 mmol/L (98-107); Estimated GFR 97; Glucose 298 mg/dL (80-115); Potassium 4.6 mmol/L (3.5-5.1); Sodium 134 mmol/L (136-145)
[2023-01-06 23:29] LABS: Sodium 134 mmol/L (136-145)
[2023-01-07] MEDS: Famotidine/PF 20 mg/2ml Vial SLOW IVP SCH ×2 (00:51→08:41)
[2023-01-07] MEDS: Diazepam 5 MG TAB PO SCH ×3 (00:51→15:50)
[2023-01-07] MEDS: Acetaminophen 325 MG TAB PO SCH ×3 (00:52→12:22)
[2023-01-07] MEDS: Dextrose 5% in Water 1,000 ML IV SCH ×2 (00:52→13:38)
[2023-01-07] MEDS: traMADol HCl 50 MG TAB PO SCH ×3 (00:53→12:15)
[2023-01-07] MEDS: Ketorolac Tromethamine 30 MG/ML VIAL IVP SCH ×2 (01:25→04:35)
[2023-01-07] MEDS: Piperacillin/Tazobactam 3.375 GM in Sodium Chloride 0.9% 100 ML IVPB SCH ×2 (04:35→12:15)
[2023-01-07 06:10] LABS: ALT (SGPT) 30 U/L (8-55); AST (SGOT) 30 U/L (5-34); Albumin 3.8 g/dL (3.4-4.8); Alkaline Phosphatase 56 U/L (40-110); Bilirubin, Direct 0.4 mg/dL (0.1-0.3); Bilirubin, Total 1.1 mg/dL (0.2-1.2); Protein, Total 6.1 g/dL (5.8-8.1)
[2023-01-07 07:42] LABS: Anion Gap 12 mmol/L (10-20); BUN (Urea Nitrogen) 9 mg/dL (8.4-25.7); Calc. Creatinine Clearance 145 mL/min (70-130); Calcium 8.5 mg/dL (7.8-10.44); Carbon Dioxide 24 mmol/L (23-31); Chloride 103 mmol/L (98-107); Estimated GFR 101; Glucose 185 mg/dL (80-115); Sodium 135 mmol/L (136-145)
[2023-01-07] MEDS: Trospium 20 MG TAB PO SCH (08:39)
[2023-01-07] MEDS: Lisinopril 20 MG TAB PO SCH (08:40)
[2023-01-07] MEDS: metFORMIN XR 500 MG ER.TAB PO SCH (08:41)
[2023-01-07] MEDS: Famotidine 20 MG TAB PO SCH (08:42)
[2023-01-07] MEDS: Insulin Glargine 30 UNITS/0.3 ML VIAL SC SCH ×2 (08:42→10:23)
[2023-01-07] MEDS ORDERED: Loratadine 10 MG TAB PO SCH (09:00)
[2023-01-07] MEDS ORDERED: Aspirin Chewable 81 MG TAB PO SCH (09:00)
[2023-01-07] MEDS ORDERED: Cholecalciferol 1,000 UNITS (25 MCG) TAB PO SCH (09:00)
[2023-01-07] MEDS ORDERED: Cyanocobalamin (Vitamin B-12) 1,000 MCG TAB PO SCH (09:00)
[2023-01-07] MEDS ORDERED: Acetaminophen 500 MG TAB PO SCH (12:00)
[2023-01-07] MEDS ORDERED: Acetaminophen/Codeine 30-300mg Tablet PO PRN (13:05)
[2023-01-07 13:14] VITALS: BP 184/92; TEMP 98.3
[2023-01-07 14:46] LABS: Anion Gap 12 mmol/L (10-20); BUN (Urea Nitrogen) 8 mg/dL (8.4-25.7); Calc. Creatinine Clearance 153 mL/min (70-130); Calcium 8.4 mg/dL (7.8-10.44); Carbon Dioxide 25 mmol/L (23-31); Chloride 99 mmol/L (98-107); Estimated GFR 102; Glucose 151 mg/dL (80-115); Magnesium 1.7 mg/dL (1.6-2.6); Potassium 3.9 mmol/L (3.5-5.1); Sodium 132 mmol/L (136-145)
== END 2023-01-07 15:56 | disposition home or self-care (01) | DRG 418 ==
LOC: ERS 16:29 → ERHOLD 23:47 → 2SW 01-06 02:12 → SURG A 01-06 11:36
PROVIDERS: ADMIT Student in an Organized Health Care Education/Training Program; ATTEND Internal Medicine
PROC: 0FT44ZZ Resection of Gallbladder, Percutaneous Endoscopic Approach (ICD-10-PCS; principal; 2023-01-06)
DX: K80.00 Calculus of gallbladder with acute cholecystitis without obstruction (principal); E87.1 Hypo-osmolality and hyponatremia; E11.42 Type 2 diabetes mellitus with diabetic polyneuropathy; E03.9 Hypothyroidism, unspecified; E78.00 Pure hypercholesterolemia, unspecified; I10 Essential (primary) hypertension; F41.9 Anxiety disorder, unspecified; M19.90 Unspecified osteoarthritis, unspecified site; J44.9 Chronic obstructive pulmonary disease, unspecified; F31.9 Bipolar disorder, unspecified; F20.9 Schizophrenia, unspecified; F17.210 Nicotine dependence, cigarettes, uncomplicated; E66.01 Morbid (severe) obesity due to excess calories; Z68.31 Body mass index [BMI] 31.0-31.9, adult; Z98.890 Other specified postprocedural states; Z88.8 Allergy status to other drugs, medicaments and biological substances; Z79.84 Long term (current) use of oral hypoglycemic drugs; Z79.899 Other long term (current) drug therapy; Z79.4 Long term (current) use of insulin
CPT/HCPCS: 36415; 36416; 71045; 71275; 74177; 76705; 80048; 80053; 80076; 81001; 83690; 83735; 84484; 85025; 85610; 85730; 86850; 86900; 86901; 88304; 93005; 96365; 96366; C1889; J0171; J0690; J1100; J1815; J1885; J2250; J2405; J2543; J2704; J3010; J3490; J7070; Q9967; S0020; S0028

== ENCOUNTER 2023-01-16 18:15 | Emergency (ER) | payer MEDICARE, OTHER ==
[2023-01-16 18:59] LABS: #Basophils 0.1 thou/uL (0.0-0.2); #Eosinphils 0.2 thou/uL (0.0-0.7); #Monocytes 0.9 thou/uL (0.11-0.59); #Neutrophils 7.5 thou/uL (1.40-6.50); %Basophils 0.6 % (0.0-1.0); %Eosinophils 1.7 % (0.0-10.0); %Lymphocytes 16.4 % (21.0-51.0); %Monocytes 8.7 % (0.0-10.0); %Neutrophils 72.1 % (42.0-75.0); Hematocrit 42.7 % (42.0-52.0); Hemoglobin 14.5 g/dL (14.0-18.0); Mean Corpuscular Hemoglobin 30.9 pg (27.0-31.0); Mean Corpuscular Volume 90.9 fl (78.0-98.0); Mean Platelet Volume 10.2 fL (7.4-10.4); Platelet Count 189 10x3/uL (130-400); White Blood Cell (WBC) Count 10.5 10x3/uL (4.8-10.8)
[2023-01-16 19:24] LABS: ALT (SGPT) 9 U/L (8-55); AST (SGOT) 10 U/L (5-34); Albumin 4.2 g/dL (3.4-4.8); Alkaline Phosphatase 68 U/L (40-110); Anion Gap 12 mmol/L (10-20); BUN (Urea Nitrogen) 9 mg/dL (8.4-25.7); Bilirubin, Total 0.9 mg/dL (0.2-1.2); Calc. Creatinine Clearance 0 mL/min (70-130); Calcium 9.8 mg/dL (7.8-10.44); Carbon Dioxide 31 mmol/L (23-31); Chloride 94 mmol/L (98-107); Estimated GFR 103; Globulin 2.6 g/dL (2.4-3.5); Glucose 120 mg/dL (80-115); Lipase 10 U/L (8-78); Potassium 3.8 mmol/L (3.5-5.1); Protein, Total 6.8 g/dL (5.8-8.1); Sodium 133 mmol/L (136-145)
== END 2023-01-16 19:05 | disposition left against medical advice (07) ==
LOC: ERS 18:15
DX: Z53.21 Procedure and treatment not carried out due to patient leaving prior to being seen by health care provider (principal)
CPT/HCPCS: 36415; 80053; 83690; 85025

== ENCOUNTER 2023-01-27 08:58 | Outpatient (CLI) | payer OTHER ==
[2023-01-27] MEDS ORDERED: Magnevist 469MG/ML 20 ML VIAL ONE (14:42)
== END 2023-01-27 08:59 | disposition home or self-care (01) ==
LOC: MRI 08:58
PROVIDERS: ATTEND Internal Medicine
DX: M54.51 Vertebrogenic low back pain (principal); M47.816 Spondylosis without myelopathy or radiculopathy, lumbar region; M51.36 Other intervertebral disc degeneration, lumbar region; Z98.890 Other specified postprocedural states
CPT/HCPCS: 72158; A9579

== ENCOUNTER 2023-09-14 17:49 | Emergency (ER) | payer OTHER ==
[2023-09-14] MEDS ORDERED: traMADol HCl 50 MG TAB ONE (19:35)
[2023-09-14] MEDS ORDERED: Orphenadrine Citrate 60 MG/2 ML VIAL ONE (19:36)
== END 2023-09-14 20:03 | disposition home or self-care (01) ==
LOC: ERS 17:49
DX: G89.29 Other chronic pain (principal); M54.2 Cervicalgia; E11.9 Type 2 diabetes mellitus without complications; I10 Essential (primary) hypertension; F17.210 Nicotine dependence, cigarettes, uncomplicated
CPT/HCPCS: 96372; 99282; J2360